=== PATIENT | female | born 2005 | race Caucasian/White ===

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

== ENCOUNTER 2023-12-05 10:57 | Outpatient (RCR) | payer OTHER, SELFPAY ==
[2023-12-04] MEDS: RHO(D) IMMUNE GLOBULIN 300 MCG/2 ML SYRINGE IM (14:44)
== END 2024-03-02 23:59 | disposition home or self-care (01) ==
LOC: ANHLAB 10:57
PROVIDERS: PCP Pediatrics; Visit Provider Obstetrics & Gynecology
DX: O20.0 Threatened abortion (principal)
CPT/HCPCS: 36415; 84702; 85461; 86850; 86900; 86901; 90384; 96372; J2790

== ENCOUNTER 2023-12-09 11:30 | Emergency (ER) | payer OTHER, SELFPAY ==
--- NOTE | ~2023-12-09 | US_ITS ---
EXAMINATION: US OB <=14 wk fetus w TV DATE: 12/09/2023 12:09 INDICATION: Vaginal bleeding TECHNIQUE: Real-time pelvic ultrasound utilizing both a transvaginal and transabdominal probe was pe rformed. The interpreting radiologist was not present for the study. COMPARISON: None. FINDINGS: The uterus measures 7.2 x 5.9 x 6.4 cm. There is an intrauterine gestational sac. A yolk sac and fet al pole are identified. The crown rump length measures 7 mm, which correlates with an estimated gesta tional age of 6 weeks and 4 days. heart motion is identified measuring 126 beats per minute (bp m) by M-mode Doppler. The right ovary measures 3.8 x 2.8 x 2.9 cm. The left ovary measures 3.4 x 1.8 x 1.9 cm. Vascular evy w seen in both ovaries on color Doppler. There is no free fluid in the pelvis. IMPRESSION: 1. Single living fetus with heart rate of 126 bpm. 2. Gestational age by ultrasound of 6 weeks 4 day(s) +/- 4 day(s) with ultrasound estimated date of delivery (VALERIY) of 07/30/2024. Reviewed, dictated and finalized at location A. IMPRESSION: 1. Single living fetus with heart rate of 126 bpm. 2. Gestational age by ultrasound of 6 weeks 4 day(s) +/- 4 day(s) with ultraso und estimated date of delivery (VALERIY) of 07/30/2024.
[2023-12-09] MEDS: SODIUM CHLORIDE 0.9% IV 1,000 ML 999 ML IV CONT (12:15)
[2023-12-09 12:16] VITALS: BP 107/58; PULSE 76; RESP 18; TEMP 36.8; O2SAT 100
[2023-12-09] MEDS: METOCLOPRAMIDE HCL INJ 10 MG/2 ML VIAL IV PUSH (12:16)
[2023-12-09 12:23] LABS: Basophils Absolute Auto 0.1 K/mm3 (0.0-0.1); Basophils Percent Auto 0.7 % (0.2-1.2); Eosinophils Absolute Auto 0.1 K/mm3 (0-0.3); Eosinophils Percent Auto 0.8 % (0-4.4); Hematocrit 40.4 % (37.0-47.0); Hemoglobin 13.4 g/dL (12.0-15.0); Immature Granulocyte Absolute 0.02 K/mm3 (0.00-0.031); Immature Granulocyte Percent A 0.3 % (0-0.5); Lymphocytes Absolute Auto 1.49 K/mm3 (0.9-3.2); Lymphocytes Percent Auto 19.9 % (18.3-44.2); Mean Corpuscular HGB Conc 33.2 g/dl (32-36); Mean Corpuscular Hemoglobin 28.5 pg (26-34); Mean Corpuscular Volume 85.8 fl (80-100); Mean Platelet Volume 10.7 fl (7.4-10.4); Monocytes Absolute Auto 0.6 K/mm3 (0.1-0.6); Monocytes Percent Auto 7.4 % (2.6-8.5); Neutrophils Absolute Auto 5.3 K/mm3 (1.3-6.7); Neutrophils Percent Auto 70.9 % (45.5-73.1); Platelet Count Result 298 k/mm3 (150-375); Red Blood Count 4.71 M/mm3 (4.2-5.4); Red Cell Distribution Width 12.7 % (11.5-14.5); White Blood Count 7.5 K/mm3 (4.5-10.0)
[2023-12-09 12:31] LABS: Alanine Aminotransferase 29 U/L (6-35); Albumin Level 4.6 g/dL (3.5-5.1); Alkaline Phosphatase 56 U/L (38-126); Anion Gap 12 mmol/L (4-12); Aspartate Amino Transferase 27 U/L (14-36); Bilirubin,Total 0.8 mg/dL (0.2-1.3); Blood Urea Nitrogen 8 mg/dL (7-17); Calcium 9.2 mg/dL (8.4-10.2); Carbon Dioxide 20 mmol/L (22-30); Chloride 103 mmol/L (98-107); Estimated CRCL calculation 119 ml/min; Estimated Glomerular Filt Rate > 60; Glucose 93 mg/dL (65-110); Potassium 3.6 mmol/L (3.4-5.0); Sodium 135 mmol/L (137-145)
[2023-12-09 12:34] LABS: Partial Thromboplastin Time 28.6 Seconds (22.3-36.8); Prothrombin Time 14.1 Seconds (11.1-14.7)
--- NOTE | 2023-12-09 12:45 | ED.GENADULT ---
HPI - General Adult General Chief complaint: Vaginal Bleeding Stated complaint: spotting, 6w4d Time Seen by Provider: 12/09/23 11:35 History of Present Illness HPI narrative: Patient 18-year-old female who presents emergency department with chief complaint urinary symptoms and spotting. The patient reports about 6 weeks and reports that she was recently treated for UTI the patient reports she finished her antibiotic and reports that she had some spotting and was still having some urinary frequency and urgency patient reports she has seen her OBGYN but decided to come to the emergency department today as she was not getting better and had a spotting. Related Data Home Medications Medication Instructions Recorded Confirmed No Home Medications 05/17/22 05/17/22 Allergies Allergy/AdvReac Type Severity Reaction Status Date / Time No Known Allergies Allergy Verified 12/09/23 11:33 Review of Systems Review of Systems: A 10 system review of systems was completed on the patient and is negative except for what is stated in the HPI. Nursing and ancillary documentation was reviewed. Exam Narrative: GENERAL: Well-appearing, well-nourished, and in no acute distress. HEAD: Normocephalic, atraumatic. EYES: PERRLA and EOMI. ENT: Nares clear, no rhinorrhea or epistaxis. Mucous membranes moist. NECK: Supple. CHEST: Clear to auscultation. No respiratory distress. HEART: Regular rate and rhythm. No murmur heard. Normal peripheral pulses. ABDOMEN: Soft, nontender, nondistended, normal active bowel sounds. EXTREMITIES: Normal range of motion. No edema. SKIN: Warm, dry, no rash. NEURO: No focal deficits. Alert and oriented x3. PSYCH: Normal mood and affect. Course Vital Signs Vital signs: Vital Signs Temperature 36.8 C 12/09/23 12:16 Pulse Rate 76 12/09/23 12:16 Respiratory Rate 18 12/09/23 12:16 Blood Pressure 107/58 L 12/09/23 12:16 Pulse Oximetry 100 12/09/23 12:16 Oxygen Delivery Room Air 12/09/23 12:16 Temperature 36.8 C 12/09/23 12:16 Pulse Rate 76 12/09/23 12:16 Respiratory Rate 18 12/09/23 12:16 Blood Pressure 107/58 L 12/09/23 12:16 Pulse Oximetry 100 12/09/23 12:16 Oxygen Delivery Room Air 12/09/23 12:16 Medical Decision Making MDM Narrative Medical decision making narrative: Differential diagnosis includes threatened miscarriage, UTI, dehydration, hyperemesis gravidarum Laboratory studies were obtained on the patient which showed a urinalysis with 3+ ketones otherwise no evidence UTI electrolytes are within normal limits quantitative hCG was 44,936 Blood type was A negative the patient has receive RhoGAM in the last 2 weeks Ultrasound showed 1. Single living fetus with heart rate of 126 bpm. 2. Gestational age by ultrasound of 6 weeks 4 day(s) +/- 4 day(s) with ultrasound estimated date of delivery (VALERIY) of 07/30/2024. Vital Signs Vital Signs: Vital Signs Temperature 36.8 C 12/09/23 12:16 Pulse Rate 76 12/09/23 12:16 Respiratory Rate 18 12/09/23 12:16 Blood Pressure 107/58 L 12/09/23 12:16 Pulse Oximetry 100 12/09/23 12:16 Oxygen Delivery Room Air 12/09/23 12:16 Temperature 36.8 C 12/09/23 12:16 Pulse Rate 76 12/09/23 12:16 Respiratory Rate 18 12/09/23 12:16 Blood Pressure 107/58 L 12/09/23 12:16 Pulse Oximetry 100 12/09/23 12:16 Oxygen Delivery Room Air 12/09/23 12:16 Lab Data 12/09/23 12:12 12/09/23 12:12 Labs: Lab Results 12/09/23 12/09/23 Range/Units 12:12 13:57 WBC 7.5 (4.5-10.0) K/mm3 RBC 4.71 (4.2-5.4) M/mm3 Hgb 13.4 (12.0-15.0) g/dL Hct 40.4 (37.0-47.0) % MCV 85.8 (80-100) fl MCH 28.5 (26-34) pg MCHC 33.2 (32-36) g/dl RDW 12.7 (11.5-14.5) % Plt Count 298 (150-375) k/mm3 MPV 10.7 H (7.4-10.4) fl Immature Gran % (Auto) 0.3 (0-0.5) % Neut % (Auto) 70.9 (45.5-73.1) % Lymph % (Au
[2023-12-09 14:06] LABS: Add Urine Microscopic? YES; Appearance Urine Cloudy (Clear); Bacteria Urine None Seen /hpf; Bilirubin Urine Negative (Negative); Blood Urine Negative (Negative); Color Urine Yellow (Yellow); Glucose Urine UA Negative (Negative); Ketones Urine 3+ mg/dL (Negative); Leukocyte Esterase Ur Negative LEU/UL (Negative); Nitrate Urine Negative (Negative); Non Pathogenic Casts 0-2; Protein Urine Negative (Negative); RBC Urine 0-2 /hpf (0-2); Specific Grav Ur 1.022 (1.001-1.035); Squamous Epithelial Cell Urine None Seen /hpf (Few); WBC Urine 0-5 /hpf (0-3); pH Urine 6.5 (5.0-9.0)
[2023-12-09 14:59] VITALS: BP 130/88; PULSE 80; RESP 14; O2SAT 98
== END 2023-12-09 14:59 | disposition home or self-care (01) ==
PROVIDERS: Emergency Provider Emergency Medicine; PCP Obstetrics & Gynecology
DX: O20.0 Threatened abortion (principal); O26.891 Other specified pregnancy related conditions, first trimester; R30.0 Dysuria; Z3A.01 Less than 8 weeks gestation of pregnancy
CPT/HCPCS: 36415; 76801; 76817; 80053; 81001; 84702; 85025; 85461; 85610; 85730; 86850; 86880; 86900; 86901; 86902; 96361; 96374; 99284; J2765; J7030

== ENCOUNTER 2024-01-20 20:01 | Emergency (ER) | payer OTHER, SELFPAY ==
[2024-01-20 20:10] VITALS: BP 147/93; PULSE 108; RESP 18; TEMP 36.6; O2SAT 100
[2024-01-20 22:53] VITALS: BP 129/76; PULSE 92; RESP 20; O2SAT 99
[2024-01-20 23:06] LABS: Basophils Absolute Auto 0.1 K/mm3 (0.0-0.1); Basophils Percent Auto 0.6 % (0.2-1.2); Eosinophils Absolute Auto 0.1 K/mm3 (0-0.3); Eosinophils Percent Auto 0.9 % (0-4.4); Hematocrit 38.3 % (37.0-47.0); Hemoglobin 12.7 g/dL (12.0-15.0); Immature Granulocyte Absolute 0.02 K/mm3 (0.00-0.031); Immature Granulocyte Percent A 0.2 % (0-0.5); Lymphocytes Absolute Auto 2.21 K/mm3 (0.9-3.2); Lymphocytes Percent Auto 21.4 % (18.3-44.2); Mean Corpuscular HGB Conc 33.2 g/dl (32-36); Mean Corpuscular Hemoglobin 28.7 pg (26-34); Mean Corpuscular Volume 86.7 fl (80-100); Mean Platelet Volume 10.5 fl (7.4-10.4); Monocytes Absolute Auto 0.7 K/mm3 (0.1-0.6); Monocytes Percent Auto 6.6 % (2.6-8.5); Neutrophils Absolute Auto 7.3 K/mm3 (1.3-6.7); Neutrophils Percent Auto 70.3 % (45.5-73.1); Platelet Count Result 266 k/mm3 (150-375); Red Blood Count 4.42 M/mm3 (4.2-5.4); Red Cell Distribution Width 12.5 % (11.5-14.5); White Blood Count 10.3 K/mm3 (4.5-10.0)
[2024-01-20 23:16] LABS: Add Urine Microscopic? YES; Appearance Urine Clear (Clear); Bacteria Urine None Seen /hpf; Bilirubin Urine Negative (Negative); Blood Urine 3+ (Negative); Color Urine Yellow (Yellow); Glucose Urine UA Negative (Negative); Ketones Urine Trace mg/dL (Negative); Leukocyte Esterase Ur Negative LEU/UL (Negative); Nitrate Urine Negative (Negative); Non Pathogenic Casts 0-2; Protein Urine Trace mg/dL (Negative); Specific Grav Ur 1.023 (1.001-1.035); Squamous Epithelial Cell Urine Few /hpf (Few); WBC Urine 0-5 /hpf (0-3); pH Urine 6.5 (5.0-9.0)
[2024-01-20 23:20] LABS: Anion Gap 10 mmol/L (4-12); Blood Urea Nitrogen 7 mg/dL (7-17); Calcium 9.2 mg/dL (8.4-10.2); Carbon Dioxide 23 mmol/L (22-30); Chloride 102 mmol/L (98-107); Estimated CRCL calculation 139 ml/min; Estimated Glomerular Filt Rate > 60; Glucose 132 mg/dL (65-110); Potassium 3.6 mmol/L (3.4-5.0); Sodium 135 mmol/L (137-145)
--- NOTE | 2024-01-20 23:21 | ED.PREGNANCY ---
HPI - General Chief complaint: Vaginal Bleeding Stated complaint: 12 weeks , vaginal bleeding Time Seen by Provider: 01/20/24 22:17 Source: patient Mode of arrival: ambulatory Limitations: no limitations History of Present Illness HPI Narrative: Patient is a 18-year-old female who presents the ED with report of vaginal bleeding. Patient is at approximately 12 weeks gestation. She sees Dr. Sherman with [facility]. Had US at 6 weeks which showed IUP. Has appointment tomorrow for 12 week scan. States over the last few days she has had light pink vaginal spotting. Today bleeding became more bright red in color. She also reported having lower abdominal and lower back cramping in prompted here for further evaluation. Patient has not taken anything for pain today. Denies dysuria or hematuria. Denies fevers, nausea, vomiting. Related Data Home Medications Medication Instructions Recorded Confirmed No Home Medications 05/17/22 05/17/22 Allergies Allergy/AdvReac Type Severity Reaction Status Date / Time No Known Allergies Allergy Verified 01/20/24 22:57 Review of Systems Review of Systems: All systems reviewed & are unremarkable except as noted in HPI. All systems reviewed & are unremarkable except as noted in HPI and below Exam Narrative: GENERAL: Well appearing, obese with BMI of 31.4, non-toxic, in no acute distress. HEAD: Normocephalic, atraumatic. RESPIRATORY: Airway patent, respirations nonlabored. Clear to auscultation bilaterally, no rales, rhonchi, wheezing. CARDIOVASCULAR: Regular rate and rhythm without murmurs, rubs, or gallops. ABDOMINAL: Soft, mild tenderness throughout lower abdomen, no rebound. Nondistended. Normoactive BS. MUSCULOSKELETAL: Moves all extremities. No gross deformities. SKIN: Warm, dry, normal color. NEURO: A&O X3. Speech clear. PSYCHIATRIC: Appropriate mood and affect. Normal interaction. Course Vital Signs Vital signs: Vital Signs Temperature 98 F 01/20/24 20:10 Pulse Rate 108 H 01/20/24 20:10 Respiratory Rate 18 01/20/24 20:10 Blood Pressure 147/93 H 01/20/24 20:10 Pulse Oximetry 100 01/20/24 20:10 Oxygen Delivery Room Air 01/20/24 20:10 Temperature 98 F 01/20/24 20:10 Pulse Rate 92 01/20/24 22:53 Respiratory Rate 20 01/20/24 22:53 Blood Pressure 129/76 01/20/24 22:53 Pulse Oximetry 99 01/20/24 22:53 Oxygen Delivery Room Air 01/20/24 22:53 MDM - OB/Uterine Contractions MDM Narrative Medical decision making narrative: Patient presented to ED with intermittent vaginal bleeding, approximately 12 weeks gestation, confirmed IUP, also reporting lower abdominal and lower back pain/cramping. Vital signs are stable upon arrival. Patient is in no acute distress. No evidence of hemodynamic instability. Cbc with white blood cell count of 10.3. Stable H&H. CMP on remarkable. UA with small amount of blood, no signs of infection. Beta hCG today 984. Per records, beta hCG last month was up to nearly 45,000. This, in combination with ongoing/worsening vaginal bleeding is suspicious for spontaneous miscarriage. I discussed these laboratory findings with patient and my concern for miscarriage. All questions were answered. Patient understandably very upset at this time. Wanting to go home. Declined pelvic exam. She does have a follow-up appointment tomorrow with her OBGYN in office. I discussed case with Dr. Bustamante, OBGYN on-call for [facility], no further recommendations at this time, follow-up in office. Patient is A negative blood type. Given RhoGAM here. Patient was advised to continue monitoring bleeding, follow closely at her appointment, given return precautions. Ambulatory with a steady gait out of the ED. Refused discharge vital signs. Medical Records Attestation: I reviewed the patient's medical records. Lab Data Attestation: I reviewed the patient's lab results. 01/20/24 23:00 01/20/24 23:00
[2024-01-20 23:37] LABS: Beta HCG Quantitative 984.57 mIU/ML
[2024-01-21] MEDS: RHO(D) IMMUNE GLOBULIN 300 MCG/2 ML SYRINGE IM (01:23)
--- NOTE | 2024-01-21 01:28 | PC.NURSE ---
Pt refused VS for Rhogam administration. Patient refused repeat VS. In TAR, was asked about peripheral or central line admin, was a hard stop in TAR, med was given IM, NOT peripheral or centrally. Patient tolerated IM shot well.
== END 2024-01-21 01:32 | disposition home or self-care (01) ==
PROVIDERS: Emergency Provider Physician Assistant; PCP Obstetrics & Gynecology
DX: O03.9 Complete or unspecified spontaneous abortion without complication (principal); Z3A.12 12 weeks gestation of pregnancy
CPT/HCPCS: 36415; 80048; 81001; 84702; 85025; 85461; 86850; 86880; 86900; 86901; 90384; 96372; 99283; J2790

== ENCOUNTER 2024-04-29 11:56 | Outpatient (RCR) | payer OTHER, SELFPAY ==
[2024-04-29] MEDS: RHO(D) IMMUNE GLOBULIN 300 MCG/2 ML SYRINGE IM (15:00)
== END 2024-07-28 23:59 | disposition home or self-care (01) ==
LOC: ANHLAB 11:56
PROVIDERS: PCP Obstetrics & Gynecology; Visit Provider Obstetrics & Gynecology
DX: Z29.13 Encounter for prophylactic Rho(D) immune globulin (principal); O36.0130 Maternal care for anti-D [Rh] antibodies, third trimester, not applicable or unspecified; Z3A.00 Weeks of gestation of pregnancy not specified
CPT/HCPCS: 36415; 84702; 85461; 86850; 86880; 86900; 86901; 86902; 90384; 96372; J2790

== ENCOUNTER 2024-05-01 12:57 | Outpatient (RCR) | payer OTHER, SELFPAY | END 2024-07-30 23:59 | disposition home or self-care (01) | LOC: ANHLAB 12:57 | PROVIDERS: PCP Obstetrics & Gynecology; Visit Provider Obstetrics & Gynecology | DX: O20.0 Threatened abortion (principal); Z3A.00 Weeks of gestation of pregnancy not specified | CPT/HCPCS: 36415; 84702 ==

== ENCOUNTER 2024-09-03 22:40 | Observation (INO) | payer OTHER, SELFPAY ==
--- NOTE | ~2024-09-03 | US_ITS ---
Limited Abdominal Sonogram: Real-time sonographic imaging of the right upper quadrant was performed. Clinical History: Right upper quadrant pain Findings: The liver appears normal with no evidence of mass lesion or bile duct dilatation. Main por rodrigo vein demonstrates normal direction of flow. The gallbladder is well distended, and contains echog enic debris and possible small stones versus polyps. The common bile duct measures 6 mm. The visuali zed pancreas, aorta, and IVC are unremarkable. Impression: Gallbladder sludge with small stones and/or polyps. Reviewed, dictated and finalized at location M. Impression: Gallbladder sludge with small stones and/or polyps.
--- OUTSIDE RECORDS SUMMARY | 2024-09-03 22:42 | XMS_ITS | Clinical Summary ---
Author Organization [facility] Address [address] [place] [address] Care Team Providers Care Spin Tank Tender Name Role Phone Unavailable Primary Care Provider Unavailabl e Source Comments [facility],non-owned Affiliates and Associated Physician Practices is amultiple site organization consisting of ambulatory clinics and hospital sitesin [place], [place], [place] and [place]. This disclosure is being madepursuant to the Care Everywhere program and may not contain all information available regarding this patient. Last updated 18.[facility] Keegy Allergies No known active allergies Medications * This document contains information received from the source organization and may not represent a complete record from that organization. * Be aware that medications may not be up to date on this document. Alwaysverify current medications with the patient. No known medications Active Problems Problem Noted Date Diagnosed Date Extensor tenosynovitis of left wrist 11/26/2018 Left wrist pain 11/26/2018 Ganglion 04/18/2018 Hx MRSA infection 06/08/2017 Closed avulsion fracture of shaft of metacarpal bone 06/08/2017 Injury of foot, left 10/04/2015 Family History Medical History Relation Name Comments None Known Brother None Known Father None Known Maternal Aunt None Known Maternal Grandfather None Known Maternal Grandmother None Known Maternal Uncle None Known Mother None Known Other None Known Paternal Aunt None Known Paternal Grandfather None Known Paternal Grandmother None Known Paternal Uncle None Known Sister Asthma Neg Hx CVA Neg Hx Cancer - Breast Neg Hx Cancer - Other Neg Hx Cancer - Skin, Melanoma Neg Hx Cancer - Skin, Non Melanoma Neg Hx Eczema Neg Hx Hemophilia Neg Hx Psoriasis Neg Hx Relation Name Status Comments Brother Father Maternal Aunt Maternal Grandfather Maternal Grandmother Maternal Uncle Mother Other Paternal Aunt Paternal Grandfather Paternal Grandmother Paternal Uncle Sister Social History Tobacco Use Types Packs/Day Years Used Date Smoking Tobacco: Passive Smo ke Exposure - Never Smoker Smokeless Tobacco: Never Comments No Sex and Gender Information Value Date Recorded Sex Assigned at Not on file Legal Sex Female 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 Gender Identity Not on file Sexual Orientation Not on file Last Filed Vital Signs Vital Sign Reading Time Taken Comments Blood Pressure 110/76 02/18/2019 2:27 PM CDT Pulse 81 02/18/2019 2:27 PM CDT Temperature 36.7 C (98.1 F) 02/18/2019 2:27 PM CDT Respiratory Rate - - Oxygen Saturation 97% 02/18/2019 2:27 PM CDT Inhaled Oxygen Concentration - - Weight 67.8 kg (149 lb 6.4 oz) 02/18/2019 2:27 P M CDT Height 160 cm (5' 3) 11/22/2018 8:22 AM CDT Body Mass Index - - Plan of Treatment Health Maintenance Due Date Last Done Comments HIV SCREENING 11/06/2018 HPV VACCINE (1 - 3-dose series) 11/06/2018 CHLAMYDIA/GONORRHEA SCREENING 2019 MENINGOCOCCAL (Group B) VACC INE SHARED DECISION-MAKING (1 of 2 - Standard) 2019 HEPATITIS C SCREENING 11/02/2021 DTAP/TDAP/TD VACCINES (1 - Tdap) 11/06/2022 HEPATITIS B VACCINE (1 of 3 - 19+ 3-dose series) 11/06/2022 COVID-19 VACCINE (1 - 2023-2 5 season) 2023 DEPRESSION SCREENING 04/23/2024 INFLUENZA VACCINE (Season Ended) 2024 ZOSTER VACCINE (1 of 2) 11/06/2053 HIB VACCINE Aged Out No longer eligi ble based on patient's age to complete this topic MENINGOCOCCAL GROUPS A/C/Y/W VACCINE Aged Out No longer eligible b ased on patient's age to complete this topic PNEUMOCOCCAL VACCINE Aged Out No long er eligible based on patient's age to complete this topic Insurance [facility] [place] [address]
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
--- OUTSIDE RECORDS SUMMARY | 2024-09-03 22:42 | XMS_ITS | Clinical Summary ---
Author Organization [facility] Address [address] [facility] [place] [address] Phone Care Team Providers Care Lieutenant Governor Name Role Phone Otoniel Noonan MD Primary Care Provider [phone] Harpreet Burch DPM Unavailable [phone] Allergies No known active allergies Medications lamoTRIgine (LAMICTAL) 25 MG Tablet Take by mouth. Active Active Problems Problem Noted Date Diagnosed Date Paronychia of great toe of right foot 11/09/2016 Paronychia of great toe, left 11/09/2016 Pain of right great toe 11/09/2016 Pain of left great toe 11/09/2016 Resolved Problems Problem Noted Date Diagnosed Date Resolved Date Pain in limb 11/09/2016 Paronychia of toe 11/09/2016 Overview (11/02/2014): R Hallux Lateral Border Family History Medical History Relation Name Comments No Known Problems Father No Known Problems Mother Diabetes Paternal Grandfather Diabetes Paternal Grandmother Relation Name Status Comments Father Alive Mother Alive Paternal Grandfather Paternal Grandmother Social History Tobacco Use Types Packs/Day Years Used Date Smoking Tobacco: Never Tobacco Cessation:Counseling Given: Yes Alcohol Use Standard Drinks/Week Comments No 0 (1 standard drink = 0.6 oz pur e alcohol) Sexually Active Control Partners Comments Never Comments No Sex and Gender Information Value Date Recorded Sex Assigned at Not on file Legal Sex Female 7:52 PM CDT Gender Identity Not on file Sexual Orientation Not on file Last Filed Vital Signs Vital Sign Reading Time Taken Comments Blood Pressure 110/68 10/25/2016 4:00 PM CDT Pulse 82 11/09/2016 10:20 AM CDT Temperature 36.1 C (97 F) 11/09/2016 10:20 AM CDT Respiratory Rate 17 11/09/2016 10:20 AM CDT Oxygen Saturation 98% 11/09/2016 10:20 AM CDT Inhaled Oxygen Concentration - - Weight 63.5 kg (140 lb) 11/09/2016 10:20 AM CDT Height 156.2 cm (5' 1.5) 11/09/2016 10:20 AM CD T Body Mass Index 26.02 11/09/2016 10:20 AM CDT Plan of Treatment Health Maintenance Due Date Last Done Comments Hepatitis C Virus (HCV) Screening 2003 TdaP Immunization 2003 Human Papillomavirus (HPV) Immunization (1 - 3-dose series) 11/06/2018 Meningococcal B Immunization (1 of 2 - Standard) 2019 Hepatitis B Immunization (1 of 3 - 19+ 3-dose series) 11/06/2022 Influenza Immunization (#1) 2023 SARS-COV-2 Immunization (1 - 2023- season) 2023 Respiratory Syncytial Virus (RSV) Immunization (Adult) (1 - 1-dose 75+ series) 11/06/2078 Meningococcal Immunization (ACWY) Aged Out No longer eligible based on patient's age to complete this topic Pneumococcal Immunization Combined Aged Out No longer eligible based on patient's age to complete this topic Rotavirus Immunization Aged Out No lo nger eligible based on patient's age to complete this topic Insurance MEDICAID [facility] [employer] MEDICAID [facility] Care Teams Lieutenant Governor Relationship Specialty Start Date End Date Otoniel Noonan MD [address] [place] [address] PCP - General Pediatrics 10/19/16 Harpreet Burch DPM [address] [place] [address] Consulting Physician Podiatry 10/19/16
--- OUTSIDE RECORDS SUMMARY | 2024-09-03 22:42 | XMS_ITS | Data Portability ---
Author Organization [facility] [place] Address [address] [place] [address] [place] [address] Assessment Encounter Date Assessment Date Assessment LastModified by Organization Details LastModified Time 08/12/2024 08/12/2024 Patient is __20 _weeks . Discussed plan. Not available 08/12/2024 12:30:38 Plan of Treatment Reminders Order Date Submit Date Provider Last Modified By Organization Details Last Modified Time Details Appointments OB ROUTINE 2024 11:45A M Tonja Mayer CNM Not available Not available Not available Lab drug screen, urine 2024 025 [email or web address] [place], [address], [place], [address], 06/18/2024 15:06:31 Referral None recorded. Procedures None recorded. Surgeries None recorded. Imaging US, obstetric , 2nd or 3rd trimester 2024 025 [email or web address] [place], [address], [place], [address], 08/12/2024 22:17:18 US, obstetric , nuchal transluce ncy 2024 025 [email or web address] [place], [address], [place], [address], 06/11/2024 19:11:46 Medication Orders None recorded. Patient TargetsNo targets recorded. Patient InstructionsNo instructions recorded. Reason for Referral None Reported. Results Created Date Observation Date Name Description Value Unit Range Abnormal Flag Note LastModifiedBy Organization Detail LastModifiedTime 06/07/19 25 06/07/2024 [UNIT Y] ANEUP LOIDY NIPT fraction 6.8% normal Not Available [facility] [address] [facility], [place], [address], 06/07/2024 02:12:36 06/07/19 25 06/07/2024 [UNIT Y] ANEUP LOIDY NIPT 22Q11.2 microdeletio n LOW RISK <1 in 10,000 normal Not Available [facility] [address], [place], [address], 06/07/2024 02:12:36 06/07/19 25 06/07/2024 [UNIT Y] ANEUP LOIDY NIPT sex chromosome aneuploidy NOT DETECT ED normal Not Available [facility] [address] [facility], [place], [address], 06/07/2024 02:12:36 06/07/19 25 06/07/2024 [UNIT Y] ANEUP LOIDY NIPT monosomy X LOW RISK <1 in 10,000 normal Not Available [facility] [address], [place], [address], 06/07/2024 02:12:36 06/07/19 25 06/07/2024 [UNIT Y] ANEUP LOIDY NIPT trisomy 13 LOW RISK <1 in 10,000 normal Not Available [facility] [address] [facility] [address] , [place], [address], 06/07/2024 02:12:36 06/07/19 25 06/07/2024 [UNIT Y] ANEUP LOIDY NIPT trisomy 18 LOW RISK <1 in 10,000 normal Not Available [facility] [address] [facility], [place], [address], 06/07/2024 02:12:36 06/07/19 25 06/07/2024 [UNIT Y] ANEUP LOIDY NIPT trisomy 21 LOW RISK <1 in 10,000 normal Not Available [facility] [address] [facility], [place], [address], 06/07/2024 02:12:36 06/07/19 25 06/07/2024 [UNIT Y] ANEUP LOIDY NIPT sex MALE normal Not Available [facility] [address], [place], [address], 06/07/2024 02:12:36 06/07/19 25 06/07/2024 [UNIT Y] ANEUP LOIDY NIPT gestation SINGLE TON normal Not Available [facility] [address] [facility], [place], [address], 06/07/2024 02:12:36 06/07/19 25 06/07/2024 [UNIT Y] ANEUP LOIDY NIPT for detailed report, see pdf See PDF normal Not Available [facility] [address] [facility], [place], [address], 06/07/2024 02:12:36 05/21/19 25 05/21/2024 CT/GC AND TRICH OMONA S VAGIN VERONICA (RRNA ), URINE chlamydia trachomatis, PCR Negati ve negati ve Not Available [facility] (Lab) [address], [place], [address], 05/22/2024 16:21:51 05/21/19 25 05/21/2024 CT/GC AND TRICH OMONA S VAGIN VERONICA (RRNA ), URINE neisseria gonorrhoeae, PCR Negati ve negati ve Not Available [facility] (Lab) [address], [place], [address], 05/22/2024 16:21:51 05/21/19 25 05/21/2024 CT/GC AND TRICH OMONA S VAGIN VERONICA (RRNA ), URINE trichomonas vaginalis ribosomal RNA (rrna) Negati ve negati ve Not Available [facility] (Lab) [address], [place], [address], 05/22/2024 16:21:51 06/02/1906/02/2024 CBC W/DIF F WBC 7.3 10'3/ uL 3.5-[address] [facility] (Lab) [address], [place], [address], 06/03/2024 14:31:17 06/02/19 25 06/02/2024 CBC W/DIF F RBC 4.81 10'6/ uL (based on docume nted legal sex) 3.80-[address] [facility] (Lab) [address], [place], [address], 06/03/2024 14:31:17 06/02/19 25 06/02/2024 CBC W/DIF F HGB 12.1 g/dL (based on docume nted legal sex) 11.6-[address] [facility] (Lab) [address], [place], [address], 06/03/2024 14:31:17 06/02/19 25 06/02/2024 CBC W/DIF F HCT 38.4 % (based on docume nted legal sex) 34.0-[address] [facility] (Lab) [address], [place], [address], 06/03/2024 14:31:17 06/02/19 25 06/02/2024 CBC W/DIF F MCV 79.8 fL 80.0-9 9[address] [facility] (Lab) [address], [place], [address], 06/03/2024 14:31:17 06/02/19 25 06/02/2024 CBC W/DIF F MCH 25.2 pg 27.0-3 4[address] [facility] (Lab) [address], [place], [address], 06/03/2024 14:31:17 06/02/19 25 06/02/2024 CBC W/DIF F MCHC 31.5 g/dL 32.0-3 5.[address] [facility] (Lab) [address], [place], [address], 06/03/2024 14:31:17 06/02/19 25 06/02/2024 CBC W/DIF F RDW 15.3 % 11.0-1 [address] [facility] (Lab) [address], [place], [address], 06/03/2024 14:31:17 06/02/19 25 06/02/2024 CBC W/DIF F plt 309 10'3/ uL 150-[address] [facility] (Lab) [address], [place], [address], 06/03/2024 14:31:17 06/02/19 25 06/02/2024 CBC W/DIF F MPV 11.9 fL 8.8-[address] [facility] (Lab) [address], [place], [address], 06/03/2024 14:31:17 06/02/19 25 06/02/2024 CBC W/DIF F neutrophils 73.7 % 34.0-7 3.0 high Not Available [facility] (Lab) [address], [place], [address], 06/03/2024 14:31:17 06/02/19 25 06/02/2024 CBC W/DIF F lymphocytes 17.0 % 15.0-[address] [facility] (Lab) [address], [place], [address], 06/03/2024 14:31:17 06/02/19 25 06/02/2024 CBC W/DIF F monocytes 6.8 % 1.0-[address] [facility] (Lab) [address], [place], [address], 06/03/2024 14:31:17 06/02/19 25 06/02/2024 CBC W/DIF F eosinophils 1.5 % 0.0-8. [address] [facility] (Lab) [address], [place], [address], 06/03/2024 14:31:17 06/02/19 25 06/02/2024 CBC W/DIF F basophils 0.7 % 0.0-2. [address] [facility] (Lab) [address], [place], [address], 06/03/2024 14:31:17 06/02/19 25 06/02/2024 CBC W/DIF F immature granulocytes 0.3 % no define d refere nce range Immat ure Granu locyt es (IG) repre sents autom ated enume ratio n of Metam yeloc ytes, Myelo cytes and Promy elocy prerna when IG is < 5%. Blast s are not inclu ded in IG and repor kristie separ ately if prese nt. Not Available [facility] (Lab) [address], [place], [address], 06/03/2024 14:31:17 06/02/19 25 06/02/2024 CBC W/DIF F absolute neutrophils 5.4 10'3/ uL 1.5-8. [address] [facility] (Lab) [address], [place], [address], 06/03/2024 14:31:17 06/02/19 25 06/02/2024 CBC W/DIF F absolute lymphocytes 1.2 10'3/ uL 1.0-4. [address] [facility] (Lab) [address], [place], [address], 06/03/2024 14:31:17 06/02/19 25 06/02/2024 CBC W/DIF F absolute monocytes 0.5 10'3/ uL 0.2-1. [address] [facility] (Lab) [address], [place], [address], 06/03/2024 14:31:17 06/02/19 25 06/02/2024 CBC W/DIF F absolute eosinophils 0.1 10'3/ uL 0.0-0. [address] [facility] (Lab) [address], [place], [address], 06/03/2024 14:31:17 06/02/19 25 06/02/2024 CBC W/DIF F absolute basophils 0.1 10'3/ uL 0.0-0. [address] [facility] (Lab) [address], [place], [address], 06/03/2024 14:31:17 06/02/19 25 06/02/2024 CBC W/DIF F absolute immature granulocytes 0.0 10'3/ uL 0.00-0 .10 Refer ence range s for nonbi nary/ inter sex or unspe cifie d gende r patie nts have not been estab lishe d. Pleas e refer to the follo wing table for range s estab lishe d for cisge nder patie nts and evalu ate in the clini arjun esther xt of the indiv idual patie nt: https ://kole ortiz book. nm.or g/Gen derX Not Available [facility] (Lab) [address] , [place], [address], 06/03/2024 14:31:17 06/02/19 25 06/02/2024 HEMOG LOBIN A1C hemoglobin A1C 5.3 % 4.0-5. 6 The Ameri can Diabe prerna Assoc iatio n recom mends that a prima ry goal of thera py kathya d be a HBA1C of < 7% and that physi cians shoul d reeva luate the treat ment regim en in patie nts with HBA1C value s consi stent ly > 8%. <5.7% Radha l 5.7 - 6.4% Incre ased risk for diabe prerna >=6.5 % Diagn ostic of diabe prerna <7.0% Goal of thera py >8.0% Actio n sugge sted Not Available [facility] (Lab) [address], [place], [address], 06/03/2024 14:31:18 06/02/19 25 06/02/2024 HEPAT ITIS B SURFA CE ANTIG EN hepatitis B surface antigen Non-re active non-re active This assay was perfo rmed using [employer] ratio n reage nts and test kits. Value s obtai renard with other assay metho ds or kits canno t be used inter madera eably . Not Available [facility] (Lab) [address], [place], [address], 06/03/2024 14:31:19 06/02/1906/02/2024 HIV 1/2 ANTIG EN/AN TIBOD Y, REFLE X CONFI RMATI ON HIV antigen/anti body Nonrea ctive nonrea ctive HIV-1 antig en and HIV-1 /HIV- 2 antib odies were not detec kristie. No labor atory evide nce of HIV infec tion. Not Available [facility] (Lab) [address], [place], [address], 06/03/2024 14:31:19 06/02/19 25 06/02/2024 HEPAT ITIS C ANTIB JOLEEN SCREE N, REFLE X TO CONFI RMATI ON hepatitis C antibody Non-re active non-re active Antib odies to HCV Not Detec kristie, does not exclu de the possi bilit y of expos ure to HCV. Not Available [facility] (Lab) [address], [place], [address], 06/03/2024 14:31:20 06/02/19 25 06/02/2024 RUBEL LA IGG ANTIB JOLEEN, QUANT rubella antibodies, IgG Reacti ve reacti ve Not Available [facility] (Lab) [address], [place], [address], 06/03/2024 14:31:21 06/02/19 25 06/02/2024 RUBEL LA IGG ANTIB JOLEEN, QUANT rubella antibodies, IgG quant 83.5 IU/mL >=10 Non-r eacti ve (Non- Immun e) <10 IU/mL React jessica (Immu ne) > or = 10 IU/mL Not Available [facility] (Lab) [address], [place], [address], 06/03/2024 14:31:21 06/02/19 25 06/02/2024 TYPE/ RH/SC REEN ABO/Rh type A NEG Not Available [facility] (Lab) [address], [place], [address], 06/03/2024 14:31:21 06/02/19 25 06/02/2024 TYPE/ RH/SC REEN antibody screen POS abnormal Not Available [facility] (Lab) [address], [place], [address], 06/03/2024 14:31:21 06/02/19 25 06/02/2024 TYPE/ RH/SC REEN exp date 2024 23:[address] [facility] (Lab) [address], [place], [address], 06/03/2024 14:31:21 06/02/19 25 06/02/2024 COOMB S, DIREC T ANTIG LOBUL IN direct antiglobulin test - polyspecific NEG Not Available [facility] (Lab) [address] [place], [address], 06/03/2024 14:31:22 06/02/19 25 06/02/2024 ANTIB JOLEEN IDENT IFICA TION antibody id POS, Anti-D due to RhIg An anti- D has been ident ified that is likel y passi vely acqui red (RhIg ) and not the resul t of activ e immun izati on. A titer will not be perfo rmed. Rhoga m injec tion recei berenice on 04/[address] [facility] (Lab) [address], [place], [address], 06/03/2024 14:31:22 06/02/19 25 06/02/2024 RPR SCREE N, REFLE X TITER /CONF IRMAT ION RPR screen Nonrea ctive nonrea ctive Not Available [facility] (Lab) [address], [place], [address], 06/03/2024 14:31:23 06/18/19 25 06/18/2024 CULTU RE: URINE result report SEE RESULT S BELOW Test: Cultu re: Urine Speci men Sourc e: Urine - Clean Catch Speci men Type: Urine Speci men Date: 2024 1502 Resul t Date: 2024 0702 Resul t Statu s: Final resul t Abnor mal: No Resul ting Lab: [facility] [address] [facility] [address] Tel: CULTU RE ----- ----- ----- --- Cultu re resul t (>=3 organ isms prese nt) indic ates possi ble conta minat ion. Repea t cultu re if sympt oms indic ate. Not Available [facility] (Lab) [address] , [place], [address], 06/20/2024 08:08:05 06/18/19 25 06/18/2024 drug scree n, urine Amphetamines : negati ve Not Available [place] [address], [place], [address], 06/18/2024 15:05:47 06/18/19 25 06/18/2024 drug scree n, urine Cannabinoids : positi ve Not Available [place] [address], [place], [address], 06/18/2024 15:05:47 06/18/19 25 06/18/2024 drug scree n, urine Cocaine: negati ve Not Available [place] [address], [place], [address], 06/18/2024 15:05:47 06/18/19 25 06/18/2024 drug scree n, urine Opiates: negati ve Not Available [place] [address], [place], [address], 06/18/2024 15:05:47 06/18/19 25 06/18/2024 drug scree n, urine Phenocyclidi ne: negati ve Not Available [place] [address], [place], [address], 06/18/2024 15:05:47 06/18/19 25 06/18/2024 drug scree n, urine Barbiturates : negati ve Not Available [place] [address], [place], [address], 06/18/2024 15:05:47 06/18/19 25 06/18/2024 drug scree n, urine Benzodiazepi francisco javier: negati ve Not Available [place] [address], [place], [address], 06/18/2024 15:05:47 06/18/19 25 06/18/2024 drug scree n, urine Ethanol: negati ve Not Available [place] [address], [place], [address], 06/18/2024 15:05:47 06/18/19 25 06/18/2024 drug scree n, urine Hallucinogen s: negati ve Not Available [place] [address], [place], [address], 06/18/2024 15:05:47 06/18/19 25 06/18/2024 drug scree n, urine Inhalants: negati ve Not Available [place] [address], [place], [address], 06/18/2024 15:05:47 06/18/19 25 06/18/2024 drug scree n, urine Anabolic Steroids: negati ve Not Available [place] [address], [place], [address], 06/18/2024 15:05:47 05/20/19 25 05/20/2024 US, obste tric, 1st trime ster No observ ation record ed. [email or web address] [address], [place], [address], 05/21/2024 23:13:09 06/11/19 25 06/11/2024 US, obste tric, nucha l trans lucen cy No observ ation record ed. [email or web address] [place] [address], [place], [address], 06/11/2024 18:20:29 06/11/19 25 06/11/2024 US, obste tric, nucha l trans lucen cy No observ ation record ed. [email or web address] [address], [place], [address], 06/11/2024 20:44:02 08/13/19 25 08/12/2024 US, obste tric, 2nd or 3rd trime ster No observ ation record ed. [email or web address] [place] [address], [place], [address], 08/12/2024 14:44:06 08/13/19 25 08/12/2024 US, obste tric, 2nd or 3rd trime ster No observ ation record ed. [email or web address] [address], [place], [address], 08/14/2024 11:02:10 Result Notes None recorded. Problems Name Problem SNOMED Code Status Onset Date Resolution Date Notes Provider Name and Address Organization Details Recorded Time 34378876 Active 2024 Urmila spaulding [place] [facility] 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 22:55:48 Problem Notes None recorded. Procedures Surgical History Date Name Laterality Status Provider Name and Address Organization Details Recorded Time 4 extraction of wisdom tooth completed Bhavya Pal [facility] 08/17/2024 10:09:10 9 tonsilectomy/a denoids completed Sophie Abrams [facility] 11/28/2023 14:06:37 Imaging Results Imaging Date Name Status LastModified by Organization Details LastModified Time 05/20/2024 US, obstetric, 1st trimester completed [email or web address] [address], [place], [address], 05/21/2024 23:13:09 06/11/2024 US, obstetric, nuchal translucency completed [email or web address] [place] [address], [place], [address], 06/11/2024 18:20:29 06/11/2024 US, obstetric, nuchal translucency completed [email or web address] [address], [place], [address], 06/11/2024 20:44:02 08/12/2024 US, obstetric, 2nd or 3rd trimester completed [email or web address] [place] [address], [place], [address], 08/12/2024 14:44:06 08/12/2024 US, obstetric, 2nd or 3rd trimester completed [email or web address] [address], [place], [address], 08/14/2024 11:02:10 Procedure Notes None recorded. Medical Equipment None Reported. Allergies No known drug allergies Medications Name Sig Start Date Stop Date Status Note LastModified by Organization Details LastModified Time amoxicillin 500 mg capsule TAKE 1 CAPSULE BY MOUTH EVERY 8 HOURS TILL GONE 11/27 completed Not Available Not Available Not Available ibuprofen 800 mg tablet TAKE 1 TABLET BY MOUTH EVERY 8 HOURS NEEDED FOR TOOTH PAIN 11/27 completed Not Available Not Available Not Available fluconazole 150 mg tablet TAKE 1 TABLET BY MOUTH FOR 1 DOSE 05/21 completed Not Available Not Available Not Available hydrocodone 5 mg-acetamino phen 325 mg tablet TAKE 1 TABLET BY MOUTH EVERY 6 HOURS NEEDED FOR PAIN. 11/27 completed Not Available Not Available Not Available ondansetron HCl 4 mg tablet 12/20 completed Not Available Not Available Not Available metronidazol e 500 mg tablet TAKE 1 TABLET BY MOUTH TWICE A DAY FOR 7 DAYS 01/21 completed Not Available Not Available Not Available acetaminophe n 300 mg-codeine 30 mg tablet TAKE 1 TABLET BY MOUTH EVERY 8 HOURS NEEDED FOR PAIN 11/27 completed Not Available Not Available Not Available ondansetron 8 mg disintegrati ng tablet 05/21 completed Not Available Not Available Not Available cephalexin 500 mg capsule 12/20 completed Not Available Not Available Not Available active Not Available Not Avai lable Not Available Vitals Date Recorded Body height Body mass index (BMI) [Percentile] Per age and sex Body mass index (BMI) Body weight Systolic blood pressure Diastolic blood pressure Provider Name and Address Organization Details Last Updated DateTime 5 154.94 cm 94 % 31.6 kg/m2 46627.9 3 g 144 mm[Hg] 68 mm[Hg] Urmila Madsen [facility] 5 11:44:18 Date Recorded Body height Body mass index (BMI) Body mass index (BMI) [Percentile] Per age and sex Body weight Systolic blood pressure Diastolic blood pressure Provider Name and Address Organization Details Last Updated DateTime 5 154.94 cm 31.4 kg/m2 94 % 30203.3 3 g 130 mm[Hg] 78 mm[Hg] ROMAINE Baires [facility] 5 10:21:59 Date Recorded Body weight Body mass index (BMI) [Percentile] Per age and sex Body mass index (BMI) Body height Systolic blood pressure Diastolic blood pressure Provider Name and Address Organization Details Last Updated DateTime 5 47569.5 1816 g 94 % 31.7 kg/m2 154.94 cm 125 mm[Hg] 83 mm[Hg] Bhavya Pal [facility] 12:22:12 Social History Question Answer Notes LastModified by Organizat ion Details LastModified Time Tobacco Smoking Status Former Smoker Bhavya Kae null, [facility] 08/17/2024 10:08:39 If You Are , What Was Your Level Of Alcohol Consumption Prior To ? None Information not available 08/17/2024 Are You Blind Or Do You Have Difficulty Seeing? No Information not available 11/28/2023 What Is Your Level Of Caffeine Consumption? Occasional Information not available 11/28/2023 In The 14 Days Before Symptom Onset, Have You Had Close Contact With A Laboratory-confir med COVID-19 While That Case Was Ill? No Information not available 11/28/2023 In The 14 Days Before Symptom Onset, Have You Had Close Contact With A Person Who Is Under Investigation For COVID-19 While That Person Was Ill? No Information not available 11/28/2023 Have You Been To An Area Known To Be High Risk For COVID-19? No Information not available 11/28/2023 Are You Deaf Or Do You Have Serious Difficulty Hearing? No Information not available 11/28/2023 What Type Of Diet Are You Following? REGULAR Information not available 11/28/2023 What Is The Highest Grade Or Level Of School You Have Completed Or The Highest Degree You Have Received? [id number] Information not available 11/28/2023 Are There Any Guns Present In Your Home? No Information not available 11/28/2023 Do You Use Protection During Sex? No Information not available 11/28/2023 Do You Use Your Seat Belt Or Car Seat Routinely? Yes Information not available 11/28/2023 Are You Sexually Active? Yes [email or web address] Information not available 05/21/2024 Do You Have Smoke And Carbon Monoxide Detectors In Your Home? No Information not available 11/28/2023 How Much Tobacco Do You Smoke? No Information not available 11/28/2023 Do You Use Sunscreen Routinely? Yes Information not available 11/28/2023 Have You Used IV Drugs? No Information not available 11/28/2023 Do You Have Difficulty Walking Or Climbing Stairs? No [email or web address] Information not available 08/17/2024 Sex: Unknown Functional Status Question Answer Note LastModified by Organizat ion Details LastModified Time Do you use any illicit or recreational drugs? No Information not available 11/28/2023 Do you or have you ever used any other forms of tobacco or nicotine? No Information not available 08/17/2024 What is your level of alcohol consumption? None Information not available 11/28/2023 Are you able to walk? [email or web address] Information not available 11/28/2023 Are you able to care for yourself? Yes [email or web address] Information n ot available 05/21/2024 Do you have difficulty dressing or bathing? No [email or web address] Information not available 08/17/2024 What is your exercise level? Occasional Information not available 11/28/2023 Mental Status Question Answer Note LastModified by Organization D etails LastModified Time Do you feel stressed (tense, restless, nervous, or anxious, or unable to sleep at night)? [id number] Information not available 11/28/2023 Family History Relationship Description Onset Age of this Age Resolved Age Notes LastModified by Organization Details LastModified Time Maternal Grandfather Heart disease [email or web address] Not available 2023 14:06:18 Maternal Grandfather Diabetes mellitus [email or web address] Not available 2023 14:06:18 Medical History Condition Response No Past Medical History Y Gynecological History Statement/Question Response Flow Moderate Date of Last Mammogram Date of LMP 03/12/2024 Was last menstrual period normal Y STIs/STDs Y HPV Vaccine Y Duration of Flow (days) 4 Current Control Method Are cycles usually normal Y Date of Last Colonoscopy Frequency of Cycle (Q days) 35 Sexually Active? Y Date of DEXA bone scan Date of Last Pap Smear Sexual Problems? N LMP Definite Obstetrics History GPAL:G 2 P 0 0 1 0 Type Value Spontaneous 1 Living 0 Total 2 Past Encounters Encounter ID Performer Location Encounter Start Date Encounter Closed Date Diagnosis/Indication Diagnosis SNOMED-CT Code Diagnosis ICD10 Code Diagnosis Note [id number] JEREMI LIM MD [place] [address],[place] [address] 11/28/2023 14:01:20 11/28/2023 15:08:05 Nausea and vomiting 71897281 R11.2 - morning sickness 2/2 early - improved s/p zofran and IV fluids in ER yesterday- able to tolerate PO intake today- discussed warning signs- will send refill of zofran to use PRN [id number] Milton Bustamante MD [place] [address],[place] [address] 12/03/2023 15:14:49 12/03/2023 16:20:52 Threatened miscarriage [id number] O20.0 Z3A.01 Milton Bustamante MD [place] [address],[place] [address] 12/11/2023 10:01:42 12/11/2023 10:25:41 Threatened miscarriage [id number] O20.0 Z3A.01 [id number] JEREMI LIM MD [place] [address],[place] [address] 12/18/2023 11:01:18 12/18/2023 12:03:28 [id number] JEREMI LIM MD [place] [address],[place] [address] 12/21/2023 11:54:32 12/21/2023 12:49:37 test positive [id number] Z32.01 1. Exam today within normal limits.2. Ultrasound today confirms GA and viability. EDC . GC/Clamydi a testing done: will f/u as indicated. 4. ACOG guidelines and plan of care for reviewed with patient. All questions answered.5 . Return to office at 12 weeks for new OB visit6. Will need new OB labs at next visit.7. Genetic screening: desires . Candidiasis of vagina 72 [id number] B37.31 - swab sent today- Diflucan sent [id number] Milton Bustamante MD [place] [address],[place] [address] 01/22/2024 15:57:08 01/22/2024 16:26:02 Missed miscarriage [id number] O02.1 Z3A.00 [id number] JEREMI LIM MD [place] [address],[place] [address] 01/22/2024 16:22:27 01/22/2024 17:09:02 Miscarriage in first trimester [id number] O03.9 - spontaneou s cramping and heavy bleeding starting yesterday- hCG <1000 in ER yesterday- pelvic US today confirms miscarriag e, no GS, YS or FP seen in the uterus- discussed repeat hCG after bleeding resolves to confirm passage of all tissue- 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 Exam today within normal limits.2. Ultrasound today confirms GA and viability. EDC . GC/Clamydi a testing done: will f/u as indicated. 4. ACOG guidelines and plan of care for reviewed with patient. All questions answered.5 . Return to office at 12 weeks for new OB visit6. Will need new OB labs at next visit.7. Genetic screening: desires at 10 weeks, papers given today. [id number] Milton Bustamante MD [place] [address],[place] [address] 06/11/2024 17:26:18 06/12/2024 08:11:28 screening [id number] Z36.82 Z3A.11 [id number] JEREMI LIM MD [place] [address],[place] [address] 06/18/2024 11:38:16 06/19/2024 05:42:16 Gestation period, 12 weeks [id number] Z3A.12 Routine an tenatal care [id number] Z34.91 [id number] JEREMI LIM MD [place] [address],[place] [address] 07/16/2024 10:16:50 07/16/2024 11:13:27 Intermittent palpitations [id number] R00.2 - with MSK chest pain, 3 episodes during - will order Holter monitoring (at least 7-14 days) if episode recurs Gestation period, 16 weeks [id number] Z3A.16 [id number] Milton Bustamante MD [place] [address],[place] [address] 08/12/2024 10:57:55 08/12/2024 12:11:22 Screening status [id number] Z36.3 Z3A.20 [id number] Tonja Mayer [facility] [address],[place] [address] 08/12/2024 10:58:10 08/12/2024 12:32:59 Gestation period, 20 weeks [id number] Z3A.20 continue vitamin Health Concerns Section Related Observation LastModified by Organization Detai ls LastModified Time None Recorded Concern Status LastModified by Organization Details LastModified Time None Recorded Advance Directives Directive None Recorded Payers Encounter Date Sequence Insurance Name Policy Number Policy Lara Covered Member ID Lara Member ID Guarantor Name 06/11/2024 1 [facility] (MEDICAID HMO) [id number] Agueda Doty [id number] Agueda Doty 06/18/2024 1 [facility] (MEDICAID HMO) [id number] Agueda Doty [id number] Agueda Doty 07/16/2024 1 [facility] (MEDICAID HMO) [id number] Agueda Doty [id number] Agueda Doty 08/12/2024 1 [facility] (MEDICAID HMO) [id number] Agueda Doty [id number] Agueda Doty 08/12/2024 1 [facility] (MEDICAID HMO) [id number] 0003 Agueda Doty [id number] Agueda Doty OBGyn Episode Ob Episode Information Episode Created Date Number of Fetuses Patient Bloodtype Patient rh Status Prepregnancy Weight lbs Domestic Partner Domestic Partner Phone Father Name Brush Stainer Status 05/21/19 25 1 CLOSED Fetus Data First Name Last Name Admitted to NICU Weight (g) Sex Living Outcome Pediatric Complications Fetus ID Race Codes Race Delivery Type , Spontane ous [id number] Stu Calculation Initial Stu Date Initial Exam Date Initial Exam Provider Initial Ultrasound Date Last Menstrual Period Date Ultra Sound Weeks Gestation 0 Eighteen To Twenty Week Stu Update Ultra Sound Date Fundal Height At Umbil Quickening Date Ultra Sound Latest Weeks Gestation Final Stu Confirmed By Final Stu Confirmed Date Final Stu Date Ultra Sound Latest Days Gestation 0 0 Menstrual History Last Menstrual Date Menses Monthly On Bcp Conception Prior Menses Frequency Hcg Plus Date Menarche Onset Age Delivery Information Delivery Date Delivery Type Labor Anesthesia Weeks Gestation Incision Type Labor Labor Length Hrs Delivered By Post Complications Tubal Sterilization Discharge Date Comments Discharge Information Feeding Method Contraceptive Method Maternal HG B and HCT Levels Ob Episode Information Episode Created Date Number of Fetuses Patient Bloodtype Patient rh Status Prepregnancy Weight lbs Domestic Partner Domestic Partner Phone Father Name Brush Stainer Status 06/18/19 25 1 A Negative 168 Greg OPEN Fetus Data First Name Last Name Admitted to NICU Weight (g) Sex Living Outcome Pediatric Complications Fetus ID Race Codes Race Delivery Type [id number] Problems Problem Notes Problem Name Start Date End Date Resolution Snomed Code Not e Placenta circumvallata 08/13/2024 [id number] 0 32 wk growth us Stu Calculation Initial Stu Date Initial Exam Date Initial Exam Provider Initial Ultrasound Date Last Menstrual Period Date Ultra Sound Weeks Gestation 12/27/2024 05/20/2024 [email or web address] 05/20/2024 03/12/2024 8 Eighteen To Twenty Week Stu Update Ultra Sound Date Fundal Height At Umbil Quickening Date Ultra Sound Latest Weeks Gestation Final Stu Confirmed By Final Stu Confirmed Date Final Stu Date Ultra Sound Latest Days Gestation 0 [email or web address] 06/19/2024 12/28/19 25 0 Pre-srinivasan Flowsheet Flowsheet Date 06/18/2024 Cuellar Score Blood Edema Fundus Height Fundus Units Glucose Ketones Leukocytes Nitrite Labor Signs Protein Cervic Dilation Cervic Effacement Cervic Station Type Weight in lbs Pre/Post Dialysis Refused Weight 167.077486129665 BP Diastolic BP Location Tested BP Systolic BP Type 68 L arm 144 sitting Fetus Heart Rate Present A Present Fetus Movement Comments Patient presents to [facility] care. Hx of miscarriage in previous , monosomy X. otherwise uncomplicated. Nausea improved, no bleeding or cramping. NT/NB wnl today, LR male NIPT!. Will draw new OB labs. RTC 4 weeks for routine care. Flowsheet Date 07/16/2024 Cuellar Score Blood Edema Fundus Height Fundus Units Glucose Ketones Leukocytes Nitrite Labor Signs Protein Cervic Dilation Cervic Effacement Cervic Station neg none Type Weight in lbs Pre/Post Dialysis Refused Weight 166.910883730591 BP Diastolic BP Location Tested BP Systolic BP Type 78 L arm 130 sitting Fetus Heart Rate Present A 145 Fetus Movement A No Comments Very mild nausea in the morn ing, much better now that she is in the 2nd trimester. Has had some episodes of intermittent chest pain that is worse with breathing deeply. Usually resolves within an hour. Tenderness at solar plexus. Reports 3 episodes thus far, last episode was 1 week ago. Will order Holter monitor if it recurs. Otherwise doing well, no bleeding or cramping. Discussed anatomy US for next visit. Flowsheet Date 08/12/2024 Cuellar Score Blood Edema Fundus Height Fundus Units Glucose Ketones Leukocytes Nitrite Labor Signs Protein Cervic Dilation Cervic Effacement Cervic Station Type Weight in lbs Pre/Post Dialysis Refused BP Diastolic BP Location Tested BP Systolic BP Type Fetus Heart Rate Present Fetus Movement Comments Flowsheet Date 08/12/2024 Cuellar Score Blood Edema Fundus Height Fundus Units Glucose Ketones Leukocytes Nitrite Labor Signs Protein Cervic Dilation Cervic Effacement Cervic Station neg none Type Weight in lbs Pre/Post Dialysis Refused 168.431644568950 BP Diastolic BP Location Tested BP Systolic BP Type 83 125 Fetus Heart Rate Present Fetus Movement A Yes Comments Patient is having some BH co ntraction. 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
[2024-09-03 22:44] VITALS: BP 125/74; PULSE 75; RESP 18; TEMP 36.8; O2SAT 100
--- NOTE | 2024-09-03 22:53 | ECG_ITS ---
Test Date: 2024-09-03 22:56:27 Measurements Intervals [place] Rate: 66 P: 33 OR: 119 QRS: 64 QRSD: 81 T: 40 QT: 425 QTc: 446 Interpretive Statements SINUS RHYTHM WITH SHORT OR INTERVAL No previous ECG available for comparison Electronically Signed On 09-04-2024 15:56:43 CDT by Amaury Peralta M.D.
[2024-09-03 23:04] VITALS: PULSE 71; O2SAT 98
[2024-09-03 23:10] LABS: Basophils Percent Auto 0.3 % (0.2-1.2); Eosinophils Absolute Auto 0.1 K/mm3 (0-0.3); Eosinophils Percent Auto 0.6 % (0-4.4); Hematocrit 31.9 % (37.0-47.0); Hemoglobin 10.1 g/dL (12.0-15.0); Immature Granulocyte Absolute 0.03 K/mm3 (0.00-0.031); Immature Granulocyte Percent A 0.3 % (0-0.5); Lymphocytes Absolute Auto 1.62 K/mm3 (0.9-3.2); Lymphocytes Percent Auto 15.7 % (18.3-44.2); Mean Corpuscular HGB Conc 31.7 g/dl (32-36); Mean Corpuscular Hemoglobin 26.4 pg (26-34); Mean Corpuscular Volume 83.3 fl (80-100); Mean Platelet Volume 11.5 fl (7.4-10.4); Monocytes Absolute Auto 0.9 K/mm3 (0.1-0.6); Monocytes Percent Auto 8.6 % (2.6-8.5); Neutrophils Absolute Auto 7.7 K/mm3 (1.3-6.7); Neutrophils Percent Auto 74.5 % (45.5-73.1); Platelet Count Result 288 k/mm3 (150-375); Red Blood Count 3.83 M/mm3 (4.2-5.4); Red Cell Distribution Width 13.2 % (11.5-14.5); White Blood Count 10.3 K/mm3 (4.5-10.0)
[2024-09-03 23:16] VITALS: BP 106/50; PULSE 64; RESP 17; O2SAT 99
--- NOTE | 2024-09-03 23:18 | ED.CHESTPAIN ---
HPI - Chest Pain General Chief Complaint: Chest Pain Stated Complaint: chest and RUQ abd pain, 24 wks preg Time Seen by Provider: 09/03/24 22:43 Source: patient Mode of arrival: ambulatory Limitations: no limitations History of Present Illness HPI narrative: Patient is a 18 y/o female who presents to the ED with c/o RUQ ABD pain. Patient reports she has been dealing with intermittent right upper quadrant abdominal pain since April. Had been occurring approximately once per month, typically at night. States it seems to be occurring more frequently. She had an episode on Sunday. Had another episode tonight which has been more severe and lasting longer. Pain radiates to her right mid back, right shoulder. She reports associated nausea/vomiting, indigestion. Denies fevers, diarrhea, constipation. Patient has not taken anything for pain. Patient is currently 24 weeks gestation. She sees Tonja Mayer with [facility]. Denies lower abdominal pain, vaginal bleeding, leakage of fluid. Related Data Home Medications ?Medication ?Instructions ?Recorded ?Confirmed ?Last Taken ?Type No Home Medications 05/17/22 05/17/22 Unknown History Allergies Allergy/AdvReac Type Severity Reaction Status Date / Time No Known Allergies Allergy Verified 09/03/24 22:41 Review of Systems Review of Systems: All systems reviewed & are unremarkable except as noted in HPI. All systems reviewed & are unremarkable except as noted in HPI and below Exam Narrative: GENERAL: Uncomfortable appearing, obese with BMI of 31.4, non-toxic, in no acute distress. HEAD: Normocephalic, atraumatic. RESPIRATORY: Airway patent, respirations nonlabored. Clear to auscultation bilaterally, no rales, rhonchi, wheezing. CARDIOVASCULAR: Regular rate and rhythm without murmurs, rubs, or gallops. ABDOMINAL: Soft, focal tenderness in right upper quadrant, positive Terrazas sign. Normoactive BS. MUSCULOSKELETAL: Moves all extremities. No gross deformities. SKIN: Warm, dry, normal color. NEURO: A&O X3. Speech clear. Cranial nerves II-XII grossly intact. Steady gait. No ataxic movements. PSYCHIATRIC: Appropriate mood and affect. Normal interaction. Course Vital Signs Vital signs: Vital Signs Temperature 98.2 F 09/03/24 22:44 Pulse Rate 75 09/03/24 22:44 Respiratory Rate 18 09/03/24 22:44 Blood Pressure 125/74 09/03/24 22:44 Pulse Oximetry 100 09/03/24 22:44 Oxygen Delivery Room Air 09/03/24 22:44 Temperature 98.2 F 09/03/24 22:44 Pulse Rate 71 09/03/24 23:04 Respiratory Rate 18 09/03/24 22:44 Blood Pressure 125/74 09/03/24 22:44 Pulse Oximetry 98 09/03/24 23:04 Oxygen Delivery Room Air 09/03/24 23:04 MDM - Chest Pain MDM Narrative Medical decision making narrative: Patient presented to ED with right upper quadrant abdominal pain. Has been intermittent for the past few months, becoming more frequent, severe episode tonight. Patient is currently 24 weeks gestation. Vital signs are stable upon arrival. She is afebrile here. Patient does appear very uncomfortable. CBC with white blood cell count of 10.3. Mild anemia noted at 10.1. No recent records to compare to. CMP with bicarb of 19, stable kidney function. AST 62, ALT 47. Normal total bili, normal alk-phos. Lipase within normal range. Trop undetectable. Bedside ultrasound utilized with assistance of Dr. Leone, appears to have gallbladder sludge vs stones in gallbladder. Patient exquisitely tender in RUQ on exam and with US. +Terrazas's sign. Given this, with mild transaminitis, concerned for acute cholecystitis. Will discuss with surgery admission overnight for formal RUQ US in the am. Discussed case with Dr. Lucas, general surgery, agrees w/ plan, will consult. Discussed case with Dr. Bustamante, OBGYN lubrication supervisor for [facility], accepted patient for admission under his service. Patient is in agreement with plan and admission. Medical Records Data Attestation: I reviewed the patient's medical records. Lab Data Attestation: I reviewed the patient's lab results. 09/03/24 23:01 09/03/24 23:01 Labs: Lab Results 09/03/24 09/03/24 Range/Units 23:01 23:56 WBC 10.3 H (4.5-10.0) K/mm3 RBC 3.83 L (4.2-5.4) M/mm3 Hgb 10.1 L (12.0-15.0) g/dL Hct 31.9 L (37.0-47.0) % MCV 83.3 (80-100) fl MCH 26.4 (26-34) pg MCHC 31.7 L (32-36) g/dl RDW 13.2 (11.5-14.5) % Plt Count 288 (150-375) k/mm3 MPV 11.5 H (7.4-10.4) fl Immature Gran % (Auto) 0.3 (0-0.5) % Neut % (Auto) 74.5 H (45.5-73.1) % Lymph % (Auto) 15.7 L (18.3-44.2) % [place] % (Auto) 8.6 H (2.6-8.5) % Eos % (Auto) 0.6 (0-4.4) % Baso % (Auto) 0.3 (0.2-1.2) % Lymph # (Auto) 1.62 (0.9-3.2) K/mm3 [place] # (Auto) 0.9 H (0.1-0.6) K/mm3 Eos # (Auto) 0.1 (0-0.3) K/mm3 Baso # (Auto) 0.0 (0.0-0.1) K/mm3 Abs Immat Gran (auto) 0.03 (0.00-0.031) K/mm3 Absolute Neuts (auto) 7.7 H (1.3-6.7) K/mm3 Absolute Nucleated RBC 0.000 (0.0-0.012) K/mm3 Nucleated RBC % 0.0 (0.0-0.2) % PT 13.0 (11.1-14.7) Seconds INR 1.0 APTT 23.8 (22.3-36.8) Seconds Sodium 136 L (137-145) mmol/L Potassium 3.4 (3.4-5.0) mmol/L Chloride 107 (98-107) mmol/L Carbon Dioxide 19 L (22-30) mmol/L Anion Gap 10 (4-12) mmol/L BUN 4 L (7-17) mg/dL Creatinine 0.52 L (0.7-1.0) mg/dL Estim Creat Clear Calc 134 ml/min Estimated GFR > 60 (59 - ) Glucose 90 (65-110) mg/dL Calcium 8.6 (8.4-10.2) mg/dL Total Bilirubin 0.9 (0.2-1.3) mg/dL AST 62 H (14-36) U/L ALT 47 H (6-35) U/L Alkaline Phosphatase 89 (38-126) U/L Troponin I < 0.012 (0.000-0.034) ng/mL Total Protein 7.0 (6.3-8.2) g/dL Albumin 3.8 (3.5-5.1) g/dL Lipase 154 (23-300) U/L Urine Color Dark yellow (Yellow) Urine Appearance Cloudy H (Clear) Urine pH 7.5 (5.0-9.0) Ur Specific [place] 1.025 (1.001-1.035) Urine Protein 1+ H (Negative) mg/dL Urine Glucose (UA) Negative (Negative) mg/dL Urine Ketones 3+ H (Negative) mg/dL Ur Blood (Man) Negative (Negative) Urine Nitrate Negative (Negative) Urine Bilirubin 1+ H (Negative) Urine Urobilinogen 1.0 (<2.0) mg/dL Leukocyte Esterase Rfl Trace H (Negative) JENI/UL Urine RBC 0-2 (0-2) /hpf Urine WBC 0-5 (0-3) /hpf Ur Squamous Epith Cells Moderate (Few) /hpf Urine Bacteria 1+ H /hpf Urine Casts 0-2 ECG Data EKG #1: Attestation: I personally reviewed and interpreted this ECG as follows: ECG completion date: 09/03/24 ECG completion time: 22:56 EKG Interpretation: normal rate (66), sinus rhythm, no ST changes and other (short CT interval) Discharge Plan Discharge Clinical Impression: Right upper quadrant abdominal pain, 24 weeks gestation of , Transaminitis Patient Disposition: Still a Patient Condition: Stable Patient Language: Turkish Prescriptions: No Action No Home Medications Follow-up/Referrals: PHYSICIAN,SOCIAL HUMAN SERVICES [facility]IST[facility] [Primary Care Provider] -
[2024-09-03 23:20] LABS: Alanine Aminotransferase 47 U/L (6-35); Albumin Level 3.8 g/dL (3.5-5.1); Alkaline Phosphatase 89 U/L (38-126); Anion Gap 10 mmol/L (4-12); Aspartate Amino Transferase 62 U/L (14-36); Bilirubin,Total 0.9 mg/dL (0.2-1.3); Blood Urea Nitrogen 4 mg/dL (7-17); Calcium 8.6 mg/dL (8.4-10.2); Carbon Dioxide 19 mmol/L (22-30); Chloride 107 mmol/L (98-107); Estimated CRCL calculation 134 ml/min; Estimated Glomerular Filt Rate > 60; Glucose 90 mg/dL (65-110); Lipase 154 U/L (23-300); Potassium 3.4 mmol/L (3.4-5.0); Sodium 136 mmol/L (137-145)
--- OUTSIDE RECORDS SUMMARY | 2024-09-03 23:21 | XMS_ITS | Clinical Summary ---
Author Organization [facility] Address [address] [facility] [place] [address] Phone Care Team Providers Care Regional Service Manager Name Role Phone Otoniel Noonan MD Primary Care Provider [phone] Harpreet Burch DPM Unavailable [phone] Allergies No known active allergies Medications [...] age to complete this topic Insurance MEDICAID [employer]ICAID [facility] Care Teams Regional Service Manager Relationship Specialty Start Date End Date Otoniel Noonan MD [address] [place] [address] PCP - General Pediatrics 10/19/16 Harpreet Burch DPM [address] [place] [address] Consulting Physician Podiatry 10/19/16
--- OUTSIDE RECORDS SUMMARY | 2024-09-03 23:22 | XMS_ITS | Clinical Summary ---
Author Organization [facility] Address [address] [place] [address] Care Team Providers Care Transportation Maintenance Worker Name Role Phone Unavailable Primary Care Provider Unavailabl e Source Comments [facility],non-owned Affiliates and Associated Physician Practices is amultiple site organization consisting of ambulatory clinics and hospital sitesin [place], [place], [place] and [place]. This disclosure is being madepursuant to the Care Everywhere program and may not contain all information available regarding this patient. 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
[2024-09-03 23:29] LABS: Partial Thromboplastin Time 23.8 Seconds (22.3-36.8)
[2024-09-03 23:31] VITALS: BP 112/56; PULSE 63; RESP 14; O2SAT 99
[2024-09-03 23:46] VITALS: BP 116/59; PULSE 66; RESP 14; O2SAT 98
[2024-09-03 23:48] LABS: Troponin I < 0.012 ng/mL (0.000-0.034)
[2024-09-03] MEDS: ACETAMINOPHEN 500 MG TABLET 1000 MG PO (23:55)
[2024-09-04] VITALS (8 sets, daily range): BP systolic 105–118; BP diastolic 48–65; PULSE 55–93; RESP 16–18; TEMP 36.3–36.6; O2SAT 99–100; BMI 31.5
[2024-09-04] MEDS: FAMOTIDINE 20 MG/2 ML VIAL IV PUSH (00:04)
[2024-09-04] MEDS: METOCLOPRAMIDE HCL INJ 10 MG/2 ML VIAL IV PUSH (00:04)
[2024-09-04] MEDS: SODIUM CHLORIDE 0.9% IV 1,000 ML 999 ML IV CONT (00:04)
[2024-09-04] MEDS: diphenhydrAMINE HCl INJ 50 MG/ML VIAL 25 MG IV PUSH (00:04)
[2024-09-04 00:16] LABS: Add Urine Microscopic? YES; Appearance Urine Cloudy (Clear); Bacteria Urine 1+ /hpf; Bilirubin Urine 1+ (Negative); Blood Urine Negative (Negative); Color Urine Dark Yellow (Yellow); Glucose Urine UA Negative (Negative); Ketones Urine 3+ mg/dL (Negative); Leukocyte Esterase Ur Trace LEU/UL (Negative); Nitrate Urine Negative (Negative); Non Pathogenic Casts 0-2; Protein Urine 1+ mg/dL (Negative); RBC Urine 0-2 /hpf (0-2); Specific Grav Ur 1.025 (1.001-1.035); Squamous Epithelial Cell Urine Moderate /hpf (Few); WBC Urine 0-5 /hpf (0-3); pH Urine 7.5 (5.0-9.0)
[2024-09-04] MEDS: MORPHINE SULFATE (*CRX) 4 MG/ML INJ IV PUSH (00:21)
[2024-09-04] MEDS: SODIUM CHLORIDE 0.9% IV 1,000 ML 100 ML IV CONT ×3 (01:45→20:20)
--- NOTE | 2024-09-04 01:51 | ADMGEN ---
This patient, Agueda Doty, was admitted to Medical Room 254-01. Patient/family oriented to hospital policies and general routines including ID bracelet, bed and alarms, visiting hours, pain management, procedures, bathroom and other care routines, personal items, smoking policy, room service/diet, and visiting hours. Information on how to activate the Rapid Response Team has been discussed. Patient/Family are encouraged to report perceived risks to care and to ask questions if they do not understand what they are told or what they should do.
--- NOTE | 2024-09-04 07:21 | PC.NURSE ---
Called Makenna Mayer CNM and updated on pt admission. Orders received for NST every shift. Notified pt primary RNJoe.
--- NOTE | 2024-09-04 08:43 | P.HP_ITS ---
H&P: [facility] History of Present Illness Date/Time: 09/04/24 08:43 Chief Complaint: Abdominal pain Narrative: This patient is a 18-year-old 2 para 0 at 23 weeks gestation who presented emergency department with right upper quadrant pain. Pain is intermittent, colicky, and associated with postprandial period. A bedside ultrasound done by ER physician showed sludge in the gallbladder. She was admitted for observation. General surgery to consult. Reassuring heart tones, she denies any cramping or vaginal bleeding. She denies any nausea, vomiting, fever, chills. She denies any chest pain or shortness of breath. To observe and consider discharge after general surgery consultation. Review of Systems Review of Systems: All systems reviewed & are unremarkable except as noted in HPI and below Constitutional: Constitutional: Denies chills, Denies fatigue, Denies fever(s) and Denies weakness Eyes: Eyes: Denies blurry vision, Denies change in vision, Denies loss of peripheral vision, Denies loss of vision, Denies other visual disturbances and Denies eye pain ENT: Denies vertigo, Denies dizziness, Denies hearing loss, Denies mouth pain, Denies nasal obstruction, Denies neck mass and Denies neck pain Cardiovascular: Cardiovascular: Denies chest pain, Denies diaphoresis, Denies syncope, Denies leg edema and Denies dyspnea Respiratory: Respiratory: Denies chest congestion, Denies cough, Denies hemoptysis, Denies dyspnea and Denies wheezing Gastrointestinal: Gastrointestinal: Denies abdominal pain, Denies constipation, Denies diarrhea, Denies nausea and Denies vomiting Genitourinary: Genitourinary: Denies hematuria, Denies change in libido, Denies nocturia, Denies genital lesions, Denies flank pain and Denies urinary urgency Musculoskeletal: Musculoskeletal: Denies abnormal gait, Denies back pain, Denies myalgias, Denies arthralgias, Denies joint swelling, Denies muscle weakness and Denies neck pain Integumentary/Breasts: Skin/Breast: Denies swelling, Denies breast pain, Denies breast mass, Denies dry skin, Denies nipple discharge, Denies unusual bruising and Denies jaundice Neurologic: Denies Neuro-related abnormal movements, Denies Abnormal speech present, Denies abnormal gait, Denies behavioral changes, Denies confusion, Denies vertigo, Denies dizziness, Denies syncope, Denies loss of vision, Denies memory loss, Denies convulsions and Denies weakness Psychiatric: Psychiatric: Denies abnormal sleep pattern, Denies behavioral changes, Denies change in libido, Denies confusion, Denies depression, Denies anhedonia and Denies memory loss Endocrine: Endocrine: Reports no additional endocrine complaints, Denies change in libido and Denies fatigue Hematologic/Lymphatic: Hematologic/Lymphatic: Reports no additional hematologic/lymphatic complaints Allergic/Immunologic: Allergic/Immunologic: Reports no additional allergic/immunologic complaints and Denies wheezing PMFSH Social History Social History Smoking status: Never smoker Second hand tobacco smoke exposure: No Alcohol intake: never Substance use: never Do You Feel Safe in your Home?: Yes Lack of Transportation: No Lack of Food: Never True Current Housing: I Have Housing Concerned About Future Housing: No Difficulty Paying Gas/Electric Bills: No Difficulty Paying for Meds: No Currently Unemployed: No Education: High School Diploma/GED Difficulty w/ Childcare or Family Care: No Spiritual care concerns: No Meds Home Medications and Allergies Home Medications ?Medication ?Instructions ?Recorded ?Confirmed ?Type calcium carbonate (Tums) 200 mg PO QID PRN dyspepsia 09/04/24 09/04/24 History vitamins no.144-folic 1 tablet PO DAILY 09/04/24 09/04/24 History acid 400 mcg chewable tablet () Allergies Allergy/AdvReac Type Severity Reaction Status Date / Time No Known Allergies Allergy Verified 09/03/24 22:41 Vital Signs Vital Signs - 24 hr 09/03/24 22:44 09/03/24 23:04 09/03/24 23:04 Temperature 98.2 F Pulse Rate 75 71 Respiratory Rate 18 Blood Pressure 125/74 Pulse Oximetry 100 98 Oxygen Delivery Room Air Room Air 09/03/24 23:16 09/03/24 23:31 09/03/24 23:46 Temperature Pulse Rate 64 63 66 Respiratory Rate 17 14 14 Blood Pressure 106/50 L 112/56 L 116/59 L Pulse Oximetry 99 99 98 Oxygen Delivery 09/04/24 01:30 09/04/24 02:05 09/04/24 04:04 Temperature 97.6 F 97.8 F Pulse Rate 71 71 55 L Respiratory Rate 17 17 17 Blood Pressure 108/59 L 105/48 L Pulse Oximetry 100 100 100 Oxygen Delivery Room Air 09/04/24 08:41 Temperature Pulse Rate Respiratory Rate Blood Pressure Pulse Oximetry 99 Oxygen Delivery Room Air Exam Const: General: cooperative, healthy appearing, comfortable and no acute distress Orientation/consciousness: oriented to person, oriented to place and oriented to time HENMT: Head: normal to inspection Ears: external ears normal Face/Nose/Sinus: Normal external nose present and normal facial exam Face and sinus: normal facial exam Eyes: General: appearance normal, both eyes and all related structures Neck: Neck: normal visual inspection, trachea midline and supple Resp: Auscultation: clear to auscultation bilaterally, no crackles, no rales, no rhonchi and no wheezes Cardio: Rate: regular rate Rhythm: regular rhythm Heart sounds: no click, no murmurs and no rubs GI: GI Palp: No abdominal tenderness, No Soft to palpation, No Tenderness to palpation present (GI) and No Palpable mass present Auscultation: normal bowel sounds Skin: General skin exam: normal color and no rashes or lesions noted Neuro: General: oriented to person, oriented to place and oriented to time Extrem: General: normal to inspection, no joint enlargement, no clubbing, cyanosis or edema, no pedal edema and no calf tenderness Psych: Appearance: grossly normal Mental Status: mental status grossly normal Speech and movement: Normal speech and movement present H&P: Results Labs Labs: Short CBC 09/03/24 Range/Units 23:01 WBC 10.3 H (4.5-10.0) K/mm3 Hgb 10.1 L (12.0-15.0) g/dL Hct 31.9 L (37.0-47.0) % Plt Count 288 (150-375) k/mm3 BMP 09/03/24 23:01 Sodium 136 L Potassium 3.4 Chloride 107 Carbon Dioxide 19 L BUN 4 L Creatinine 0.52 L Glucose 90 Calcium 8.6 Cardiac Enzymes 09/03/24 Range/Units 23:01 Troponin I < 0.012 (0.000-0.034) ng/mL Liver Function 09/03/24 Range/Units 23:01 Total Bilirubin 0.9 (0.2-1.3) mg/dL AST 62 H (14-36) U/L ALT 47 H (6-35) U/L Alkaline Phosphatase 89 (38-126) U/L Albumin 3.8 (3.5-5.1) g/dL Urine 09/03/24 Range/Units 23:56 Urine Color Dark yellow (Yellow) Urine Appearance Cloudy H (Clear) Urine pH 7.5 (5.0-9.0) Ur Specific [place] 1.025 (1.001-1.035) Urine Protein 1+ H (Negative) mg/dL Urine Glucose (UA) Negative (Negative) mg/dL Assessment and Plan Assessment and plan (1) Second trimester : Code(s): Z34.92 - Encounter for supervision of normal , unspecified, second trimester Status: Acute (2) Right upper quadrant abdominal pain: Code(s): R10.11 - Right upper quadrant pain Status: Acute Plan This patient is a 18-year-old 2 para 0 at 23 weeks gestation who presented emergency department with right upper quadrant pain. Pain is intermittent, colicky, and associated with postprandial period. A bedside ultrasound done by ER physician showed sludge in the gallbladder. She was admitted for observation. General surgery to consult. Reassuring heart tones, she denies any cramping or vaginal bleeding. She denies any nausea, vomiting, fever, chills. She denies any chest pain or shortness of breath. To observe and consider discharge after general surgery consultation.
--- NOTE | 2024-09-04 11:02 | PM.CNGS ---
Assessment and Plan Assessment and plan (1) Right upper quadrant abdominal pain: Code(s): R10.11 - Right upper quadrant pain Status: Acute Assessment and Plan: This is a 24 week patient whop resented with intermittent RUQ abdominal pain over the past 5 months and a more severe episode last night. She is feeling much better this morning and is not having any abdominal pain at the time of my exam. She still has some RUQ tenderness, but reportedly improved. RUQ ultrasound showed gallbladder sludge with gallbladder polyps vs small stones. No evidence of acute cholecystitis. I discussed the case with Dr. Mae, who will discuss with Obstetrics. She is in her second trimester, which is the ideal time for surgical management during if indicated. (2) Cholelithiasis: Code(s): K80.20 - Calculus of gallbladder without cholecystitis without obstruction Status: Acute (3) Transaminitis: Code(s): R74.01 - Elevation of levels of liver transaminase levels Status: Acute (4) 24 weeks gestation of : Code(s): Z3A.24 - 24 weeks gestation of Status: Acute Plan I have discussed the patient's case and plan of care with Dr. Mae. History of Present Illness Consult details Consult date: 09/04/24 Reason for consult: other (RUQ pain, possible cholecystitis) Requesting physician: An Ac PA-C Narrative: This is a 18-year-old woman who is 24 weeks gestation, that we have been asked to see for RUQ pain and possible cholecystitis. She has had intermittent episodes of RUQ pain since April. Her pain was associated with nausea and vomiting, and would typically occur at night. She cannot recall if it occurs after eating fatty meals. Over the past few weeks, her symptoms have been more frequent. She had an episode on Sunday night after eating barbecue, which resolved with time. She then developed RUQ pain around 7:30 pm last night. She had eaten a [employer] sandwich and shortly after had [employer] milk tea. She had associated nausea and vomiting. Her pain radiated into her right upper back and around her right shoulder. Her pain was more intense than previous episodes, therefore she came into the ED for evaluation. Labs showed WBC count 10,300 and mildly elevated AST and ALT. Other labs unremarkable. She was admitted to OBGYN in the setting of RUQ pain. RUQ ultrasound ordered this morning. No previous abdominal surgery. Review of Systems Review of Systems: All systems reviewed & are unremarkable except as noted in HPI and below PMFSH Social History Social History Smoking status: Never smoker Second hand tobacco smoke exposure: No Alcohol intake: never Substance use: never Do You Feel Safe in your Home?: Yes Lack of Transportation: No Lack of Food: Never True Current Housing: I Have Housing Concerned About Future Housing: No Difficulty Paying Gas/Electric Bills: No Difficulty Paying for Meds: No Currently Unemployed: No Education: High School Diploma/GED Difficulty w/ Childcare or Family Care: No Spiritual care concerns: No Meds Home Medications and Allergies Home Medications ?Medication ?Instructions ?Recorded ?Confirmed ?Type calcium carbonate (Tums) 200 mg PO QID PRN dyspepsia 09/04/24 09/04/24 History vitamins no.144-folic 1 tablet PO DAILY 09/04/24 09/04/24 History acid 400 mcg chewable tablet () Allergies Allergy/AdvReac Type Severity Reaction Status Date / Time No Known Allergies Allergy Verified 09/03/24 22:41 Vital Signs Vital Signs - 24 hr 09/03/24 22:44 09/03/24 23:04 09/03/24 23:04 Temperature 98.2 F Pulse Rate 75 71 Respiratory Rate 18 Blood Pressure 125/74 Pulse Oximetry 100 98 Oxygen Delivery Room Air Room Air 09/03/24 23:16 09/03/24 23:31 09/03/24 23:46 Temperature Pulse Rate 64 63 66 Respiratory Rate 17 14 14 Blood Pressure 106/50 L 112/56 L 116/59 L Pulse Oximetry 99 99 98 Oxygen Delivery 09/04/24 01:30 09/04/24 02:05 09/04/24 04:04 Temperature 97.6 F 97.8 F Pulse Rate 71 71 55 L Respiratory Rate 17 17 17 Blood Pressure 108/59 L 105/48 L Pulse Oximetry 100 100 100 Oxygen Delivery Room Air 09/04/24 08:40 09/04/24 08:41 Temperature Pulse Rate 70 Respiratory Rate Blood Pressure Pulse Oximetry 99 Oxygen Delivery Room Air Exam Const: General: comfortable and no acute distress Nutritional Appearance: average body habitus Orientation/consciousness: patient oriented x3 HENMT: Head: normocephalic and atraumatic Ears: hearing grossly normal bilaterally Mouth: Yes moist mucous membranes Eyes: General: appearance normal, both eyes and all related structures Pupils: Equal, round and reactive pupils present Neck: Neck: normal visual inspection and full ROM Resp: Effort & Inspection: no respiratory distress Auscultation: clear to auscultation bilaterally Cardio: Rate: regular rate Rhythm: regular rhythm Peripheral pulses: Peripheral pulses 2+ throughout GI: Inspection: non-distended, no scars and striae GI Palp: Yes Soft to palpation, Yes Tenderness to palpation present (GI) (RUQ), No Guarding due to palpation present (GI), No Rebound tenderness present and Yes Other GI palpation findings present (gravid uterus) Auscultation: normal bowel sounds Skin: General skin exam: normal color Neuro: General: moves all extremities and no focal motor deficits Speech: normal speech Motor exam (neuro): 5/5 motor strength present throughout Extrem: General: normal to inspection and no edema Psych: Mental Status: mental status grossly normal Attitude: cooperative Insight: Good insight present (Psych) Judgement: Good judgement present (Psych) Results Labs 09/03/24 23:01 09/03/24 23:01 Labs: Abnormal lab results 09/03/24 09/03/24 Range/Units 23:01 23:56 WBC 10.3 H (4.5-10.0) K/mm3 RBC 3.83 L (4.2-5.4) M/mm3 Hgb 10.1 L (12.0-15.0) g/dL Hct 31.9 L (37.0-47.0) % MCHC 31.7 L (32-36) g/dl MPV 11.5 H (7.4-10.4) fl Neut % (Auto) 74.5 H (45.5-73.1) % Lymph % (Auto) 15.7 L (18.3-44.2) % [place] % (Auto) 8.6 H (2.6-8.5) % [place] # (Auto) 0.9 H (0.1-0.6) K/mm3 Absolute Neuts (auto) 7.7 H (1.3-6.7) K/mm3 Sodium 136 L (137-145) mmol/L Carbon Dioxide 19 L (22-30) mmol/L BUN 4 L (7-17) mg/dL Creatinine 0.52 L (0.7-1.0) mg/dL AST 62 H (14-36) U/L ALT 47 H (6-35) U/L Urine Appearance Cloudy H (Clear) Urine Protein 1+ H (Negative) mg/dL Urine Ketones 3+ H (Negative) mg/dL Urine Bilirubin 1+ H (Negative) Leukocyte Esterase Rfl Trace H (Negative) JENI/UL Urine Bacteria 1+ H /hpf Diabetes panel 09/03/24 Range/Units 23:01 Sodium 136 L (137-145) mmol/L Potassium 3.4 (3.4-5.0) mmol/L Chloride 107 (98-107) mmol/L Carbon Dioxide 19 L (22-30) mmol/L BUN 4 L (7-17) mg/dL Creatinine 0.52 L (0.7-1.0) mg/dL Glucose 90 (65-110) mg/dL Calcium 8.6 (8.4-10.2) mg/dL AST 62 H (14-36) U/L ALT 47 H (6-35) U/L Alkaline Phosphatase 89 (38-126) U/L Total Protein 7.0 (6.3-8.2) g/dL Albumin 3.8 (3.5-5.1) g/dL Calcium panel 09/03/24 Range/Units 23:01 Calcium 8.6 (8.4-10.2) mg/dL Albumin 3.8 (3.5-5.1) g/dL Pituitary panel 09/03/24 Range/Units 23:01 Sodium 136 L (137-145) mmol/L Potassium 3.4 (3.4-5.0) mmol/L Chloride 107 (98-107) mmol/L Carbon Dioxide 19 L (22-30) mmol/L BUN 4 L (7-17) mg/dL Creatinine 0.52 L (0.7-1.0) mg/dL Glucose 90 (65-110) mg/dL Calcium 8.6 (8.4-10.2) mg/dL Adrenal panel 09/03/24 Range/Units 23:01 Sodium 136 L (137-145) mmol/L Potassium 3.4 (3.4-5.0) mmol/L Chloride 107 (98-107) mmol/L Carbon Dioxide 19 L (22-30) mmol/L BUN 4 L (7-17) mg/dL Creatinine 0.52 L (0.7-1.0) mg/dL Glucose 90 (65-110) mg/dL Calcium 8.6 (8.4-10.2) mg/dL Total Bilirubin 0.9 (0.2-1.3) mg/dL AST 62 H (14-36) U/L ALT 47 H (6-35) U/L Alkaline Phosphatase 89 (38-126) U/L Total Protein 7.0 (6.3-8.2) g/dL Albumin 3.8 (3.5-5.1) g/dL All other labs normal. Imaging Additional studies: ITS Impressions Abdomen Ultrasound 09/04/24 08:56 Impression: Gallbladder sludge with small stones and/or polyps.
[2024-09-04] MEDS: ACETAMINOPHEN 325 MG TABLET 650 MG PO (20:19)
[2024-09-05 06:00] VITALS: BP 112/55; PULSE 81; RESP 16; TEMP 36.1; O2SAT 99
--- NOTE | 2024-09-05 06:38 | PM.PNGS ---
Progress Note: A&P Assessment and Plan (1) Right upper quadrant abdominal pain: Code(s): R10.11 - Right upper quadrant pain Status: Acute Assessment and Plan: Much improved. Okay to discharge from my standpoint on low-fat diet. If her symptoms recur, she is welcome to see me either in the office or if necessary, I can see her again in the hospital. (2) Cholelithiasis: Qualifiers: Cholelithiasis location: gallbladder Cholecystitis presence: without cholecystitis Biliary obstruction: without biliary obstruction Qualified Code(s): K80.20 - Calculus of gallbladder without cholecystitis without obstruction Code(s): K80.20 - Calculus of gallbladder without cholecystitis without obstruction Status: Acute Assessment and Plan: No acute cholecystitis. Continue low-fat diet (3) 24 weeks gestation of : Code(s): Z3A.24 - 24 weeks gestation of Status: Acute Subjective Subjective Date/Time Seen: 09/05/24 06:38 Patient reports: pain is less (No recurrence of abdominal pain), tolerating a regular diet and afebrile Review of Systems Review of Systems: All systems reviewed & are unremarkable except as noted in HPI and below (HPI) Exam Const: General: comfortable, awake and tired appearing GI: Inspection: no abdominal wall ecchymosis, non-distended and other (Gravid uterus) GI Palp: Yes Soft to palpation, No Tenderness to palpation present (GI) and No Palpable mass present Objective Data Vital Signs Vital Signs: Vital Signs - 24 hr 09/04/24 08:40 09/04/24 08:41 09/04/24 13:55 Temperature 36.4 C L Pulse Rate 70 66 Respiratory Rate 18 Blood Pressure 116/61 Pulse Oximetry 99 100 Oxygen Delivery Room Air 09/04/24 21:08 09/04/24 21:50 09/05/24 06:00 Temperature 36.3 C L 36.1 C L Pulse Rate 93 81 Respiratory Rate 16 16 Blood Pressure 118/65 112/55 L Pulse Oximetry 100 100 99 Oxygen Delivery Room Air Intake/Output Intake/Output: Intake & Output 09/02/24 09/03/24 09/04/24 09/05/24 23:59 23:59 23:59 23:59 Intake Total 3533.3 200 Output Total 200 Balance 3333.3 200 Meds/Results Medications: Active Medications Generic Name Dose Route Start Last Admin Trade Name Freq PRN Reason Stop Dose Admin Acetaminophen 650 mg 09/04/24 00:22 09/04/24 20:19 Acetaminophen 325 Mg Tablet PO 650 mg Q4H PRN Administration Mild Pain (1-3) or Fever Dextrose 12.5 gm 09/04/24 00:25 Dextrose 50% 25 Gm/50 Ml Syringe IV PUSH PRN PRN Hypoglycemia Protocol Glucagon 1 mg 09/04/24 00:25 Glucagon For Inj 1 Mg Vial IM PRN PRN Hypoglycemia Protocol Glucose 15 gm 09/04/24 00:25 Glucose Oral Gel 15 Gm Of Glucse In 37.5 Gm Tube PO PRN PRN Hypoglycemia Protocol Sodium Chloride 1,000 mls @ 100 mls/hr 09/04/24 00:25 09/04/24 20:20 Normal Saline Iv IV CONT 100 mls/hr .Q10H YARELI Administration Dextrose 1,000 mls @ 100 mls/hr 09/04/24 00:25 Dextrose 5% 1,000 Ml IVPB PRN PRN Hypoglycemia Protocol Radiology Results: ITS Impressions Abdomen Ultrasound 09/04/24 08:56 Impression: Gallbladder sludge with small stones and/or polyps.
--- NOTE | 2024-09-30 07:32 | P.PNOB_ITS ---
OB - Triage/Final Diagnosis Visit Information Comments/Additional reasons for admission: I have assessed the risk for this patient, Agueda Doty, and determined that she would benefit from observation care. Evaluation Laboratory results: Laboratory Tests 09/03/24 09/03/24 23:01 23:56 WBC 10.3 H RBC 3.83 L Hgb 10.1 L Hct 31.9 L MCV 83.3 MCH 26.4 MCHC 31.7 L RDW 13.2 Plt Count 288 MPV 11.5 H Immature Gran % (Auto) 0.3 Neut % (Auto) 74.5 H Lymph % (Auto) 15.[address] [place] % (Auto) 8.6 H Eos % (Auto) 0.6 Baso % (Auto) 0.3 Lymph # (Auto) 1.62 [place] # (Auto) 0.9 H Eos # (Auto) 0.1 Baso # (Auto) 0.0 Abs Immat Gran (auto) 0.03 Absolute Neuts (auto) 7.7 H Absolute Nucleated RBC 0.000 Nucleated RBC % 0.0 PT 13.0 INR 1.0 APTT 23.8 Sodium 136 L Potassium 3.4 Chloride 107 Carbon Dioxide 19 L Anion Gap 10 BUN 4 L Creatinine 0.52 L Estim Creat Clear Calc 134 Estimated GFR > 60 Glucose 90 Calcium 8.6 Total Bilirubin 0.9 AST 62 H ALT 47 H Alkaline Phosphatase 89 Troponin I < 0.012 Total Protein 7.0 Albumin 3.8 Lipase 154 Urine Color Dark yellow Urine Appearance Cloudy H Urine pH 7.5 Ur Specific [place] 1.025 Urine Protein 1+ H Urine Glucose (UA) Negative Urine Ketones 3+ H Ur Blood (Man) Negative Urine Nitrate Negative Urine Bilirubin 1+ H Urine Urobilinogen 1.0 Leukocyte Esterase Rfl Trace H Urine RBC 0-2 Urine WBC 0-5 Ur Squamous Epith Cells Moderate Urine Bacteria 1+ H Urine Casts 0-2 Final Diagnosis (1) Cholelithiasis: Qualifiers: Cholelithiasis location: gallbladder Cholecystitis presence: without cholecystitis Biliary obstruction: without biliary obstruction Qualified Code(s): K80.20 - Calculus of gallbladder without cholecystitis without obstruction Code(s): K80.20 - Calculus of gallbladder without cholecystitis without obstruction Status: Acute
== END 2024-09-05 11:05 | disposition home or self-care (01) ==
LOC: ANHED 09-04 00:33 → ANH2MED 09-04 01:02
PROVIDERS: Admitting Provider Obstetrics & Gynecology; Emergency Provider Physician Assistant; Visit Provider Obstetrics & Gynecology
DX: O99.612 Diseases of the digestive system complicating pregnancy, second trimester (principal); K80.20 Calculus of gallbladder without cholecystitis without obstruction; O26.892 Other specified pregnancy related conditions, second trimester; R74.01 Elevation of levels of liver transaminase levels; Z3A.24 24 weeks gestation of pregnancy
CPT/HCPCS: 36415; 59025; 76705; 80053; 81001; 83690; 84484; 85025; 85610; 85730; 93005; 96361; 96367; 96374; 96375; 99285; A9270; G0378; G0379; J1200; J2270; J2765; J7030

== ENCOUNTER 2024-10-08 10:16 | Outpatient (RCR) | payer OTHER, SELFPAY ==
--- OUTSIDE RECORDS SUMMARY | 2024-10-08 11:42 | XMS_ITS | Clinical Summary ---
Author Organization [facility] Address [address] [facility] [place] [address] Phone Care Team Providers Care Back Sewer Name Role Phone Otoniel Noonan MD Primary Care Provider [phone] Harpreet Burch DPM Unavailable [phone] Allergies No known active allergies Medications [...] of 3 - 19+ 3-dose series) 11/06/2022 SARS-COV-2 Immunization ( - 2023- season) 2023 Influenza Immunization (Se[place] on Ended) 2024 Respiratory Syncytial Virus (RSV) Immunization (Adult) (1 - 1-dose 75+ series) 11/06/2078 Meningococcal Immunization (ACWY) Aged Out No longer eligible based on patient's age to complete this topic Pneumococcal Immunization Combined Aged Out No longer eligible based on patient's age to complete this topic Rotavirus Immunization Aged Out No lo nger eligible based on patient's age to complete this topic Insurance MEDICAID [employer] MEDICAID [employer] Care Teams Back Sewer Relationship Specialty Start Date End Date Otoniel Noonan MD [address] [place] [address] PCP - General Pediatrics 10/19/16 Harpreet Burch DPM [facility] [place] [address] Consulting Physician Podiatry 10/19/16
--- OUTSIDE RECORDS SUMMARY | 2024-10-08 11:42 | XMS_ITS | Continuity of Care Document ---
Author Organization [facility] [place] Address [address] [place] [address] Assessment Encounter Date Assessment Date Assessment LastModified by Organization Details LastModified Time 10/08/2024 10/08/2024 Patient is _28__weeks . Discussed plan. Not available 10/08/2024 10:34:25 Plan of Treatment Reminders Order Date Submit Date Provider Last Modified By Organization Details Last Modified Time Details Appointments OB ROUTINE 2024 09:15A M Tonja Mayer CNM Not available Not available Not available OB ROUTINE 2024 09:00A M JEREMI LIM MD Not available Not available Not available U/S OB GROWTH 2024 09:00A M ULTRASOUND Not available Not available Not available OB ROUTINE 2024 09:45A M Tonja Mayer CNM Not available Not available Not available Lab None recorde d. Referral None recorde d. Procedures None recorde d. Surgeries None recorde d. Imaging None recorde d. Medication Orders None recorde d. Patient TargetsNo targets recorded. Patient InstructionsNo instructions recorded. Reason for Referral None Reported. Results Created Date Observation Date Name Description Value Unit Range Abnormal Flag Note LastModifiedBy Organization Detail LastModifiedTime 08/13/1908/12/2024 US, obste tric, 2nd or 3rd trime ster No observ ation record ed. [email or web address] [place] [address], [place], [address], 08/12/2024 14:44:06 08/13/19 25 08/12/2024 US, obste tric, 2nd or 3rd trime ster No observ ation record ed. [email or web address], [place], [address], 08/14/2024 11:02:10 09/05/19 25 09/04/2024 US, robyn yates r No observ ation record ed. [email or web address] [place] [id number] [facility] [address], [place], [address], 09/08/2024 14:32:13 Result Notes None recorded. Problems Name Problem SNOMED Code Status Onset Date Resolution Date Notes Provider Name and Address Organization Details Recorded Time 33828433 Active 2024 Urmila spaulding, [facility] 5 12:16:04 Placenta circumval roberto 3123274 Active 2024 32 wk growth Tianna spaulding [facility] 5 22:55:48 Gallstone 245041502 Active [address] lipscomb office number to schedule post delivery Tonja Mayer CNM [address], [place], [address], [facility] 5 13:27:29 Gallstone 917124969 Active [address] lipscomb office number to schedule post delivery Tonja Mayer CNM [address], [place], [address], [facility] 5 13:27:29 Problem Notes None recorded. Procedures Surgical History Date Name Laterality Status Provider Name and Address Organization Details Recorded Time 4 extraction of wisdom tooth completed Bhavya Pal [facility] 08/17/2024 10:09:10 9 tonsilectomy/a denoids completed Sophie Abrams [facility] 11/28/2023 14:06:37 Imaging Results None recorded. Procedure Notes None recorded. Medical Equipment None [...] lable Not Available Vitals Date Recorded Body weight Body mass index (BMI) [Percentile] Per age and sex Body mass index (BMI) Body height Systolic blood pressure Diastolic blood pressure Provider Name and Address Organization Details Last Updated DateTime 5 90212.2 9527 g 95 % 32.3 kg/m2 154.94 cm 126 mm[Hg] 82 mm[Hg] Bhavya Pal [facility] 10:12:39 Social History Question Answer Notes LastModified by Organizat ion Details LastModified Time Tobacco Smoking Status Former Smoker Bhavya Pal [facility] 08/17/2024 10:08:39 If You Are , What Was Your Level Of Alcohol Consumption Prior To ? None [email or web address] Information not available 08/17/2024 Are You Blind [...] Or The Highest Degree You Have Received? [id number] Information not available 11/28/2023 Are There Any Guns Present In Your Home? No Information not available 11/28/2023 Do You Use Protection During Sex? No Information not available 11/28/2023 Do You Use Your Seat Belt Or Car Seat Routinely? Yes Information not available 11/28/2023 Are You Sexually Active? Yes [email or web address] Information not available 05/21/2024 Do You Have Smoke And Carbon Monoxide Detectors In Your Home? No Information not available 11/28/2023 How Much Tobacco Do You Smoke? No Information not available 11/28/2023 Do You Use Sunscreen Routinely? Yes Information not available 11/28/2023 Have You Used IV Drugs? No Information not available 11/28/2023 Do You Have Difficulty Walking Or Climbing Stairs? No [email or web address] Information not available 08/17/2024 Sex: Unknown Functional Status Question Answer Note LastModified by Organizat ion Details LastModified Time Do you use any illicit or recreational drugs? No Information not available 11/28/2023 Do you or have you ever used any other forms of tobacco or nicotine? No [email or web address] Information not available 08/17/2024 What is your level of alcohol consumption? None Information not available 11/28/2023 Are you able to walk? [email or web address] Information not available 11/28/2023 Are you able to care for yourself? Yes [email or web address] Information n ot available 05/21/2024 Do you have difficulty dressing or bathing? No [email or web address] Information not available 08/17/2024 What is your exercise level? Occasional Information not available 11/28/2023 Mental Status Question Answer Note LastModified by Organization D etails LastModified Time Do you feel stressed (tense, restless, nervous, or anxious, or unable to sleep at night)? [id number] Information not available 11/28/2023 Family History Relationship Description Onset Age of this Age Resolved Age Notes LastModified by Organization Details LastModified Time Maternal Grandfather Heart disease [email or web address] Not available 2023 14:06:18 Maternal Grandfather Diabetes mellitus [email or web address] Not available 2023 14:06:18 Medical History Condition Response Allergies (Food, seasonal, environmental ) N Other N Drug/Latex Allergies/Reactions N Blood Transfusion N Breast Cancer N Dermatologic Disorders N Lung Disease N Defects or Inherited Disease N Breast Problem N Gestational Diabetes N Hematologic disorders N Anesthesia Complications N History of STI N Deep Vein Thrombosis N Polycystic ovary syndrome N Anxiety Disorder N Autoimmune disease N Arthritis N Polyps N Infertility N Acid Reflux (GERD) N History of abnormal pap N Cancer N Varicosities N Stroke N Neurologic/Epilepsy N Endometriosis N High Cholesterol N Fibromyalgia N Headaches N Kidney Disease N Heart Problems N Thyroid Problems N Kidney or Bladder Problems N GI Problems N Eating Disorder N Anemia N Art (IVF or FET) N Psychiatric Illness N Ovarian Cancer N Diabetes N Pulmonary (TB, Asthma) N Hepatitis/Liver Disease Y No Past Medical History Y Eczema N Urinary Tract Infection N Abuse/Domestic Violence N Asthma N Trauma/Violence N Depression/ depression N Heart Disease N Pre-Eclampsia N Hypertension N Osteoporosis N Thrombophilias N Gynecological History Statement/Question Response Flow Moderate Date [...] SNOMED-CT Code Diagnosis ICD10 Code Diagnosis Note [id number] [facility] [address] [address] 09/10/2024 12:46:34 09/10/2024 13:33:22 Gestation period, 24 weeks 902627330 Z3A.24 cont pnv [id number] [facility] [address] [address] 10/08/2024 10:03:38 10/08/2024 10:41:33 Gestation period, 28 weeks 85749063 Z3A.28 cont pnv Health Concerns Section Related Observation LastModified by Organization Detai ls LastModified Time None Recorded Concern Status LastModified by Organization Details LastModified Time None Recorded Payers Encounter Date Sequence Insurance Name Policy Number Policy Lara Covered Member ID Lara Member ID Guarantor Name 10/08/2024 1 [facility] (MEDICAID HMO) [id number] Agueda Doty [id number] Agueda Doty OBGyn Episode Ob Episode Information Episode Created Date Number of Fetuses Patient Bloodtype Patient rh Status Prepregnancy Weight lbs Domestic Partner Domestic Partner Phone Father Name Riprap Placer Status 06/18/19 25 1 A Negative 168 Greg OPEN Fetus Data First Name Last Name Admitted to NICU Weight (g) Sex Living Outcome Pediatric Complications Fetus ID Race Codes Race Delivery Type [id number] Problems Problem Notes Problem Name Start Date End Date Resolution Snomed Code Not e Placenta circumvallata 08/13/2024 596550 0 32 wk growth us Gallstone 09/10/[id number] giordano office number to schedule post delivery Stu Calculation Initial Stu Date Initial Exam Date Initial Exam Provider Initial Ultrasound Date Last Menstrual Period Date Ultra Sound Weeks Gestation 12/27/2024 05/20/2024 [email or web address] 05/20/2024 03/12/2024 8 Eighteen To Twenty Week Stu Update Ultra Sound Date Fundal Height At Umbil Quickening Date Ultra Sound Latest Weeks Gestation Final Stu Confirmed By Final Stu Confirmed Date Final Stu Date Ultra Sound Latest Days Gestation 0 [email or web address] 06/19/2024 12/28/19 25 0 Pre- Flowsheet Flowsheet Date 06/18/2024 Cuellar Score Blood Edema Fundus Height Fundus Units Glucose Ketones Leukocytes Nitrite Labor Signs Protein Cervic Dilation Cervic Effacement Cervic Station Type Weight in lbs Pre/Post Dialysis Refused Weight 167.168714988353 BP Diastolic BP Location Tested BP Systolic BP Type 68 L arm 144 sitting Fetus Heart Rate Present A Present Fetus Movement Comments Patient presents to [facility]. Hx of miscarriage in previous , [...] Weight in lbs Pre/Post Dialysis Refused Weight 166.783338321696 BP Diastolic BP Location Tested BP Systolic [...] Type Weight in lbs Pre/Post Dialysis Refused 168.521296475508 BP Diastolic BP Location Tested BP Systolic BP Type 83 125 Fetus Heart Rate Present Fetus Movement A Yes Comments Patient is having some BH co ntraction. 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 discussed low fat diet precautions and education. +FM, 28 weeks gct Flowsheet Date 10/08/2024 Cuellar Score Blood Edema Fundus Height Fundus Units Glucose Ketones Leukocytes Nitrite Labor Signs Protein Cervic Dilation Cervic Effacement Cervic Station neg none Type Weight in lbs Pre/Post Dialysis Refused 171.863783723420 BP Diastolic BP Location Tested BP Systolic BP Type 82 126 Fetus Heart Rate Present Fetus Movement A Yes Comments Patient states that is havin g some gallstone pain off and on. watching diet, +FM, baby shower last week order for rhogam and gct given Menstrual History Last Menstrual Date Menses Monthly [...]
--- OUTSIDE RECORDS SUMMARY | 2024-10-08 11:43 | XMS_ITS | Data Portability ---
Author Organization [facility] [place] Address [address] [place] [place] [address] Assessment Encounter Date Assessment Date Assessment LastModified by Organization Details LastModified Time 08/12/2024 08/12/2024 Patient is __20 _weeks . Discussed plan. [email or web address] Not available 08/12/2024 12:30:38 09/10/2024 09/10/2024 Patient is 24___weeks . Discussed plan. [email or web address] Not available 09/10/2024 12:57:13 10/08/2024 10/08/2024 Patient is _28__weeks . Discussed plan. Not available 10/08/2024 10:34:25 Plan of Treatment Reminders Order Date Submit Date Provider Last Modified By Organization Details Last Modified Time Details Appointments OB ROUTINE 2024 09:15A M Tonja Mayer CNM Not available Not available Not available OB ROUTINE 2024 09:00A Jasmine LIM MD Not available Not available Not available U/S OB GROWTH 2024 09:00A M ULTRASOUND Not available Not available Not available OB ROUTINE 2024 09:45A M Tonja Mayer CNM Not available Not available Not available Lab None recorde d. Referral None recorde d. Procedures None recorde d. Surgeries None recorde d. Imaging US, obstetr ic, 2nd or 3rd trimest er 2024 025 [email or web address] [place], [address], [address], [place], [address], 08/12/2024 22:17:18 Medication Orders None recorde d. Patient TargetsNo targets recorded. Patient InstructionsNo instructions recorded. Reason for Referral None Reported. Results Created Date Observation Date Name Description Value Unit Range Abnormal Flag Note LastModifiedBy Organization Detail LastModifiedTime 06/18/1906/18/2024 CULTU RE: URINE result report SEE RESULT S BELOW Test: Cultu re: Urine Speci men Sourc e: Urine - Clean Catch Speci men Type: Urine Speci men Date: 2024 1502 Resul t Date: 2024 0702 Resul t Statu s: Final resul t Abnor mal: No Resul ting Lab: [facility] [address] [facility] [address] Tel: CULTU RE ----- ----- ----- --- Cultu re resul t (>=3 organ isms prese nt) indic ates possi ble conta minat ion. Repea t cultu re if sympt oms indic ate. Not Available [facility] (Lab) [address] [facility], [place], [address], 06/20/2024 08:08:05 06/18/19 25 06/18/2024 drug scree n, urine Amphetamines : negati ve Not Available [place] [address], [place], [address], 06/18/2024 15:05:47 06/18/19 25 06/18/2024 drug scree n, urine Cannabinoids : positi ve Not Available [place] [address], [place], [address], 06/18/2024 15:05:47 06/18/19 25 06/18/2024 drug scree n, urine Cocaine: negati ve Not Available [place] [address], [place], [address], 06/18/2024 15:05:47 06/18/19 25 06/18/2024 drug scree n, urine Opiates: negati ve Not Available [place] [address], [place], [address], 06/18/2024 15:05:47 06/18/19 25 06/18/2024 drug scree n, urine Phenocyclidi ne: negati ve Not Available [place] [address], [place], [address], 06/18/2024 15:05:47 06/18/19 25 06/18/2024 drug scree n, urine Barbiturates : negati ve Not Available [place] [address], [place], [address], 06/18/2024 15:05:47 06/18/19 25 06/18/2024 drug scree n, urine Benzodiazepi francisco javier: negati ve Not Available [place] [address], [place], [address], 06/18/2024 15:05:47 06/18/19 25 06/18/2024 drug scree n, urine Ethanol: negati ve Not Available [place] [address], [place], [address], 06/18/2024 15:05:47 06/18/19 25 06/18/2024 drug scree n, urine Hallucinogen s: negati ve Not Available [place] [address], [place], [address], 06/18/2024 15:05:47 06/18/19 25 06/18/2024 drug scree n, urine Inhalants: negati ve Not Available [place] [address], [place], [address], 06/18/2024 15:05:47 06/18/19 25 06/18/2024 drug scree n, urine Anabolic Steroids: negati ve Not Available [place] [address], [place], [address], 06/18/2024 15:05:47 08/13/19 25 08/12/2024 US, obste tric, 2nd or 3rd trime ster No observ ation record ed. [email or web address] [place] [address], [place], [address], 08/12/2024 14:44:06 08/13/19 25 08/12/2024 US, obste tric, 2nd or 3rd trime ster No observ ation record ed. [email or web address] [address], [place], [address], 08/14/2024 11:02:10 09/05/19 25 09/04/2024 US, gallb ladde r No observ ation record ed. [email or web address] [facility] [address], [place], [address], 09/08/2024 14:32:13 Result Notes None recorded. Problems Name Problem SNOMED Code Status Onset Date Resolution Date Notes Provider Name and Address Organization Details Recorded Time 55445637 Active 2024 Urmila spaulding, [facility] 12:16:04 Placenta circumval roberto 5094568 Active 2024 32 wk growth Tianna spaulding [facility] 22:55:48 Gallstone 526644356 Active [address] lipscomb office number to schedule post delivery Tonja Mayer CNM [address], [place], [address], [facility] 13:27:29 Gallstone 938984542 Active [address] lipscomb office number to schedule post delivery Tonja Mayer CNM [address], [place], [address], [facility] 05/21/202 5 13:27:29 Problem Notes None recorded. Procedures Surgical History Date Name Laterality Status Provider Name and Address Organization Details Recorded Time 4 extraction of wisdom tooth completed Bhavya Pal [facility] 08/17/2024 10:09:10 9 tonsilectomy/a denoids completed Sophie Abrams [facility] 11/28/2023 14:06:37 Imaging Results None recorded. [...] 5 154.94 cm 31.4 kg/m2 94 % 06762.3 3 g 130 mm[Hg] 78 mm[Hg] ROMAINE aBires [facility] 5 10:21:59 Date Recorded Body weight Body mass index (BMI) [Percentile] Per age and sex Body mass index (BMI) Body height Systolic blood pressure Diastolic blood pressure Provider Name and Address Organization Details Last Updated DateTime 5 78543.5 1816 g 94 % 31.7 kg/m2 154.94 cm 125 mm[Hg] 83 mm[Hg] Bhavya Pal [facility] 5 12:22:12 Date Recorded Body height Body mass index (BMI) [Percentile] Per age and sex Body mass index (BMI) Body weight Systolic blood pressure Diastolic blood pressure Provider Name and Address Organization Details Last Updated DateTime 5 154.94 cm 94 % 31.6 kg/m2 78007.9 3 g 121 mm[Hg] 78 mm[Hg] Bhavya Pal [facility] 5 12:56:59 Date Recorded Body weight Body mass index (BMI) [Percentile] Per age and sex Body mass index (BMI) Body height Systolic blood pressure Diastolic blood pressure Provider Name and Address Organization Details Last Updated DateTime 5 64039.2 9527 g 95 % 32.3 kg/m2 154.94 cm 126 mm[Hg] 82 mm[Hg] Bhavya Pal [facility] 5 10:12:39 Social History Question Answer Notes LastModified by Organizat ion Details LastModified Time Tobacco Smoking Status Former Smoker Bhavya Pal [facility] 08/17/2024 10:08:39 If You Are , What Was Your Level Of Alcohol Consumption Prior To ? None [email or web address] Information not available 08/17/2024 Are You Blind [...] Or The Highest Degree You Have Received? [id number] Information not available 11/28/2023 Are There Any Guns Present In Your Home? No Information not available 11/28/2023 Do You Use Protection During Sex? No Information not available 11/28/2023 Do You Use Your Seat Belt Or Car Seat Routinely? Yes Information not available 11/28/2023 Are You Sexually Active? Yes [email or web address] Information not available 05/21/2024 Do You Have Smoke And Carbon Monoxide Detectors In Your Home? No Information not available 11/28/2023 How Much Tobacco Do You Smoke? No Information not available 11/28/2023 Do You Use Sunscreen Routinely? Yes Information not available 11/28/2023 Have You Used IV Drugs? No Information not available 11/28/2023 Do You Have Difficulty Walking Or Climbing Stairs? No [email or web address] Information not available 08/17/2024 Sex: Unknown Functional Status Question Answer Note LastModified by Organizat ion Details LastModified Time Do you use any illicit or recreational drugs? No Information not available 11/28/2023 Do you or have you ever used any other forms of tobacco or nicotine? No [email or web address] Information not available 08/17/2024 What is your level of alcohol consumption? None Information not available 11/28/2023 Are you able to walk? [email or web address] Information not available 11/28/2023 Are you able to care for yourself? Yes Information n ot available 05/21/2024 Do you have difficulty dressing or bathing? No [email or web address] Information not available 08/17/2024 What is your exercise level? Occasional Information not available 11/28/2023 Mental Status Question Answer Note LastModified by Organization D etails LastModified Time Do you feel stressed (tense, restless, nervous, or anxious, or unable to sleep at night)? [id number] Information not available 11/28/2023 Family History Relationship Description Onset Age of this Age Resolved Age Notes LastModified by Organization Details LastModified Time Maternal Grandfather Heart disease [email or web address] Not available 2023 14:06:18 Maternal Grandfather Diabetes mellitus [email or web address] Not available 2023 14:06:18 Medical History Condition Response Allergies (Food, seasonal, environmental ) N Other N Breast Cancer N Drug/Latex Allergies/Reactions N Blood Transfusion N Dermatologic Disorders N Lung Disease N Defects or Inherited Disease N Breast Problem N Gestational Diabetes N Hematologic disorders N Anesthesia Complications N History of STI N Deep Vein Thrombosis N Polycystic ovary syndrome N Anxiety Disorder N Autoimmune disease N Arthritis N Infertility N Polyps N Acid Reflux (GERD) N History of abnormal pap N Cancer N Stroke N Varicosities N Neurologic/Epilepsy N Endometriosis N High Cholesterol N Headaches N Fibromyalgia N Kidney Disease N Heart Problems N Kidney or Bladder Problems N Thyroid Problems N GI Problems N Eating Disorder [...] SNOMED-CT Code Diagnosis ICD10 Code Diagnosis Note JEREMI LIM MD [place] [address],[place] [address] 11/28/2023 14:01:20 11/28/2023 15:08:05 Nausea and vomiting 98134610 R11.2 - morning sickness 2/2 early - improved s/p zofran and IV fluids in ER yesterday- able to tolerate PO intake today- discussed warning signs- will send refill of zofran to use PRN [id number] Milton Bustamante MD [place] [address],[place] [address] 12/03/2023 15:14:49 12/03/2023 16:20:52 Threatened miscarriage 34569605 O20.0 Z3A.01 [id number] Milton Bustamante MD [place] [address],[place] [address] 12/11/2023 10:01:42 12/11/2023 10:25:41 Threatened miscarriage 75286885 O20.0 Z3A.01 [id number] JEREMI LIM MD [place] [address],[place] [address] 12/18/2023 11:01:18 12/18/2023 12:03:28 [id number] JEREMI LIM MD [place] [address],[place] [address] 12/21/2023 11:54:32 12/21/2023 12:49:37 test positive 641421549 Z32.01 1. Exam today within normal limits.2. [...] screening: desires . Candidiasis of vagina 72 493478 B37.31 - swab sent today- Diflucan sent [id number] Milton Bustamante MD [place] [address],[place] [address] 01/22/2024 15:57:08 01/22/2024 16:26:02 Missed miscarriage 99359578 O02.1 Z3A.00 [id number] JEREMI LIM MD [place] [address],[place] [address] 01/22/2024 16:22:27 01/22/2024 17:09:02 Miscarriage in first trimester 93086001 O03.9 - spontaneou s cramping and heavy [...] to clinic if bleeding or pain worsens [id number] Milton Bustamante MD [place] [address],[place] [address] 05/05/2024 12:00:54 05/05/2024 12:27:43 Uterine size for dates discrepancy 829043410 O26.849 Z3A.01 [id number] Milton Bustamante MD [place] [address],[place] [address] 05/20/2024 17:20:11 05/20/2024 18:04:09 [id number] JEREMI LIM MD [place] [address],[place] [address] 05/21/2024 11:41:39 05/21/2024 14:20:13 test positive 309072758 Z32.01 1. Exam today within normal limits.2. [...] desires at 10 weeks, papers given today. [id number] Milton Bustamante MD [place] [address],[place] [address] 06/11/2024 17:26:18 06/12/2024 08:11:28 screening 799052625 Z36.82 Z3A.11 [id number] JEREMI LIM MD [place] [address],[place] [address] 06/18/2024 11:38:16 06/19/2024 05:42:16 Gestation period, 12 weeks 84614568 Z3A.12 Routine an tenatal care 991685682 Z34.91 [id number] JEREMI LIM MD [place] [address],[place] [address] 07/16/2024 10:16:50 07/16/2024 11:13:27 Intermittent palpitations 463337733 R00.2 - with MSK chest pain, 3 episodes during - will order Holter monitoring (at least 7-14 days) if episode recurs Gestation period, 16 weeks 87314806 Z3A.16 [id number] Milton Bustamante MD [place] [address],[place] [address] 08/12/2024 10:57:55 08/12/2024 12:11:22 Screening status 113422508 Z36.3 Z3A.20 [id number] Tonja Mayer CNM [place] [address] [place] [address] 08/12/2024 10:58:10 08/12/2024 12:32:59 Gestation period, 20 weeks 36252131 Z3A.20 continue vitamin [id number] Tonja Mayer CNM [place] [address] [place] [address] 09/10/2024 12:46:34 09/10/2024 13:33:22 Gestation period, 24 weeks 539109526 Z3A.24 cont pnv [id number] Tonja Mayer CNM [place] [address],[place] [address] 10/08/2024 10:03:38 10/08/2024 10:41:33 Gestation period, 28 weeks 58962578 Z3A.28 cont pnv Health Concerns Section Related Observation LastModified by Organization Detai ls LastModified Time None Recorded Concern Status LastModified by Organization Details LastModified Time None Recorded Advance Directives Directive None Recorded Payers Insurance Date Sequence Insurance Name Policy Number Policy Lara Covered Member ID Lara Member ID Guarantor Name 10/05/2024 1 [facility] (MEDICAID HMO) [id number] Agueda Doty [id number] Agueda Doty OBGyn Episode Ob Episode Information Episode Created Date Number of Fetuses Patient Bloodtype Patient rh Status Prepregnancy Weight lbs Domestic Partner Domestic Partner Phone Father Name Vice President [employer] Sales Status 05/21/19 25 1 CLOSED Fetus Data First Name Last Name Admitted to NICU Weight (g) Sex Living Outcome Pediatric Complications Fetus ID Race Codes Race Delivery Type , Spontane ous [id number] Stu Calculation Initial Stu Date Initial Exam [...] Domestic Partner Domestic Partner Phone Father Name Vice President [employer] Sales Status 06/18/19 25 1 A Negative 168 Greg OPEN Fetus Data First Name Last Name Admitted to NICU Weight (g) Sex Living Outcome Pediatric Complications Fetus ID Race Codes Race Delivery Type [id number] Problems Problem Notes Problem Name Start Date End Date Resolution Snomed Code Not e Placenta circumvallata 08/13/2024 367021 0 32 wk growth us Gallstone 09/10/[id number] giordano office number to schedule post delivery Stu Calculation Initial Stu Date Initial Exam Date Initial Exam Provider Initial Ultrasound Date Last Menstrual Period Date Ultra Sound Weeks Gestation 12/27/2024 05/20/2024 [email or web address] 05/20/2024 03/12/2024 8 Eighteen To Twenty Week Stu Update Ultra Sound Date Fundal Height At Umbil Quickening Date Ultra Sound Latest Weeks Gestation Final Stu Confirmed By Final Stu Confirmed Date Final Stu Date Ultra Sound Latest Days Gestation 0 [email or web address] 06/19/2024 12/28/19 25 0 Pre- Flowsheet Flowsheet Date 06/18/2024 Cuellar Score Blood Edema Fundus Height Fundus Units Glucose Ketones Leukocytes Nitrite Labor Signs Protein Cervic Dilation Cervic Effacement Cervic Station Type Weight in lbs Pre/Post Dialysis Refused Weight 167.417695112232 BP Diastolic BP Location Tested BP Systolic BP Type 68 L arm 144 sitting Fetus Heart Rate Present A Present Fetus Movement Comments Patient presents to [facility] care. Hx of miscarriage in previous , [...] Weight in lbs Pre/Post Dialysis Refused Weight 166.871562688356 BP Diastolic BP Location Tested BP Systolic [...] Type Weight in lbs Pre/Post Dialysis Refused 168.344881841584 BP Diastolic BP Location Tested BP Systolic BP Type 83 125 Fetus Heart Rate Present Fetus Movement A Yes Comments Patient is having some BH co ntraction. 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
--- OUTSIDE RECORDS SUMMARY | 2024-10-08 11:43 | XMS_ITS | Clinical Summary ---
Author Organization [facility] Address [address] [address] Care Team Providers Care Territory Account Executive Name Role Phone Unavailable Primary Care Provider Unavailabl e Source Comments [facility],non-owned Affiliates and Associated Physician Practices is amultiple site organization consisting of ambulatory clinics and hospital sitesin [place], [place], [place] and [place]. This disclosure is being madepursuant to the Care Everywhere program and may not contain all information available regarding this patient. Last updated 18.[facility] [employer] Allergies No known active allergies Medications * [...] on file Legal Sex Female 6:45 AM [employer] Gender Identity Not on file Sexual Orientation [...] patient's age to complete this topic Insurance [facility] [address]
[2024-10-09] MEDS: RHO(D) IMMUNE GLOBULIN 300 MCG/2 ML SYRINGE IM (15:38)
== END 2025-01-06 23:59 | disposition home or self-care (01) ==
LOC: ANHLAB 10:16
PROVIDERS: Visit Provider Advanced Practice Midwife
DX: Z29.13 Encounter for prophylactic Rho(D) immune globulin (principal); O36.0190 Maternal care for anti-D [Rh] antibodies, unspecified trimester, not applicable or unspecified; Z3A.00 Weeks of gestation of pregnancy not specified
CPT/HCPCS: 36415; 85461; 86850; 86900; 86901; 90384; 96372; J2790

== ENCOUNTER 2024-12-25 09:44 | Inpatient (IN) | payer OTHER, SELFPAY ==
[2024-12-25] VITALS (228 sets, daily range): BP systolic 95–145; BP diastolic 42–114; PULSE 54–118; RESP 18; TEMP 36.6–37.2; O2SAT 96–100; BMI 34.9
--- OUTSIDE RECORDS SUMMARY | 2024-12-25 12:00 | XMS_ITS | Clinical Summary ---
Author Organization [facility] Address [address] [place] [address] Care Team Providers Care Box Stamper Name Role Phone Unavailable Primary Care Provider Unavailabl e Source Comments [facility],non-owned Affiliates and Associated Physician Practices is amultiple site organization consisting of ambulatory clinics and hospital sitesin [place], [place], [place] and [place]. This disclosure is being madepursuant to the Care Everywhere program and may not contain all information available regarding this patient. 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 Gender Identity Not on file Sexual Orientation [...] of 3 - 19+ 3-dose series) 11/06/2022 DEPRESSION SCREENING 04/23/2024 PAP SMEAR 11/06/2024 COVID-19 VACCINE (1 - 2023-2 5 season) 2024 INFLUENZA VACCINE (#1) 2024 ZOSTER VACCINE (1 of 2) 11/06/2053 HIB VACCINE Aged Out No longer eligi ble based on patient's age to complete this topic MENINGOCOCCAL GROUPS A/C/Y/W VACCINE Aged Out No longer eligible b ased on patient's age to complete this topic PNEUMOCOCCAL VACCINE Aged Out No long er eligible based on patient's age to complete this topic Insurance [facility] [place] [address]
--- OUTSIDE RECORDS SUMMARY | 2024-12-25 12:00 | XMS_ITS | Clinical Summary ---
Author Organization [facility] Address [address] [facility] [place] [address] Phone Care Team Providers Care Protective Services Officer Name Role Phone Otoniel Noonan MD Primary Care Provider [phone] Harpreet Burch DPM Unavailable [phone] Allergies No known active allergies Medications [...] 19+ 3-dose series) 11/06/2022 Influenza Immunization (#1) 2024 SARS-COV-2 Immunization (1 - season) 2024 Respiratory Syncytial Virus (RSV) Immunization (Adult) (1 - 1-dose 75+ series) 11/06/2078 Meningococcal Immunization (ACWY) Aged Out No longer eligible based on patient's age to complete this topic Pneumococcal Immunization Combined Aged Out No longer eligible based on patient's age to complete this topic Rotavirus Immunization Aged Out No lo nger eligible based on patient's age to complete this topic Insurance MEDICAID [facility] [employer] [facility] MEDICAID [facility] [employer] Care Teams Protective Services Officer Relationship Specialty Start Date End Date Otoniel Noonan MD [address] [place] [address] PCP - General Pediatrics 10/19/16 Harpreet Burch DPM [address] [place] [address] Consulting Physician Podiatry 10/19/16
[2024-12-25 12:09] LABS: Hematocrit 37.4 % (37.0-47.0); Hemoglobin 11.7 g/dL (12.0-15.0); Immature Granulocyte Percent A 0.5 % (0-0.5); Lymphocytes Absolute Auto 1.23 K/mm3 (0.9-3.2); Mean Corpuscular HGB Conc 31.3 g/dl (32-36); Mean Corpuscular Hemoglobin 25.9 pg (26-34); Mean Corpuscular Volume 82.7 fl (80-100); Nucleated Red Blood Cells Absolute Auto 0.000 K/mm3 (0.0-0.012); Nucleated Red Blood Cells Perc 0.0 % (0.0-0.2); Platelet Count Result 227 k/mm3 (150-375); Red Blood Count 4.52 M/mm3 (4.2-5.4); White Blood Count 9.3 K/mm3 (4.5-10.0)
--- NOTE | 2024-12-25 12:12 | LDADM ---
This patient, Agueda Doty, was admitted to Labor/Delivery/Recovery 105 on 12/25/24 at 09:44. Plans for labor, pain management and were discussed with patient. Patient/family oriented to hospital policies and general routines including ID bracelet, bed and alarms, visiting hours, pain management, procedures, bathroom and other care routines, personal items, smoking policy, room service/diet and guest tray routines, infant security routines, and visiting hours. Patient/Family are encouraged to report perceived risks to care and to ask questions if they do not understand what they are told or what they should do. See OBIX for further documentation.
[2024-12-25] MEDS: LACTATED RINGERS 1,000 ML 125 ML IV CONT ×2 (12:24→16:17)
[2024-12-25] MEDS: AMPICILLIN SODIUM 2 GM in SODIUM CHLORIDE 0.9% IV 100 ML 200 ML IVPB (12:25)
[2024-12-25 12:31] LABS: Alanine Aminotransferase 15 U/L (6-35); Albumin Level 3.6 g/dL (3.5-5.1); Alkaline Phosphatase 207 U/L (38-126); Anion Gap 8 mmol/L (4-12); Aspartate Amino Transferase 23 U/L (14-36); Bilirubin,Total 0.5 mg/dL (0.2-1.3); Blood Urea Nitrogen 10 mg/dL (7-17); Calcium 9.3 mg/dL (8.4-10.2); Carbon Dioxide 18 mmol/L (22-30); Chloride 106 mmol/L (98-107); Estimated CRCL calculation 128 ml/min; Estimated Glomerular Filt Rate > 60; Glucose 95 mg/dL (65-110); Potassium 4.1 mmol/L (3.4-5.0); Sodium 132 mmol/L (137-145); Total Protein 6.5 g/dL (6.3-8.2)
[2024-12-25 13:07] LABS: Syphilis IgG/IgM Antibody Non-Reactive (Nonreactive)
--- NOTE | 2024-12-25 13:09 | WPDOBADMIT ---
Obstetrics - Admit Note Admission Note: record reviewed. No pertinent additions to the history and/or any subsequent changes in the physical findings that are not consistent with the expected course of the were found. Additions to the history and/or subsequent changes in the physical findings follow. Admit in labor, AROM small amount of meconium fluid, SVE /-2 anticipate vaginal delivery
--- NOTE | 2024-12-25 13:44 | WPDANESEPPF ---
Anes - Initial Pre Proc Eval Procedure: Labor Epidural Date/Time: 12/25/24 13:44 Surgeon: Milton Bustamante MD Pre Op Diagnosis: labor pain Pre Op Diagnosis: Contractions Patient Data Age: 19 Gender: F Height: 1.55 m Weight: 84 kg Last Vital Signs Pulse 88 12/25/24 13:30 BP 138/73 12/25/24 13:30 Pulse Ox 99 12/25/24 13:39 O2 Del Method Room Air 12/25/24 12:30 Allergies Allergy/AdvReac Type Severity Reaction Status Date / Time No Known Allergies Allergy Verified 12/25/24 12:08 Home Medications ?Medication ?Instructions ?Recorded ?Confirmed ?Type calcium carbonate (Tums) 200 mg PO QID PRN dyspepsia 09/04/24 12/25/24 History vitamins no.144-folic 1 tablet PO DAILY 09/04/24 12/01/24 History acid 400 mcg chewable tablet () Laboratory Tests 12/25/24 12:03 WBC 9.3 K/mm3 (4.5-10.0) RBC 4.52 M/mm3 (4.2-5.4) Hgb 11.7 L g/dL (12.0-15.0) Hct 37.4 % (37.0-47.0) MCV 82.7 fl (80-100) MCH 25.9 L pg (26-34) MCHC 31.3 L g/dl (32-36) RDW 20.4 H % (11.5-14.5) Plt Count 227 k/mm3 (150-375) MPV 12.4 H fl (7.4-10.4) Immature Gran % (Auto) 0.5 % (0-0.5) Neut % (Auto) 78.8 H % (45.5-73.1) Lymph % (Auto) 13.2 L % (18.3-44.2) [place] % (Auto) 6.9 % (2.6-8.5) Eos % (Auto) 0.3 % (0-4.4) Baso % (Auto) 0.3 % (0.2-1.2) Lymph # (Auto) 1.23 K/mm3 (0.9-3.2) [place] # (Auto) 0.6 K/mm3 (0.1-0.6) Eos # (Auto) 0.0 K/mm3 (0-0.3) Baso # (Auto) 0.0 K/mm3 (0.0-0.1) Abs Immat Gran (auto) 0.05 H K/mm3 (0.00-0.031) Absolute Neuts (auto) 7.3 H K/mm3 (1.3-6.7) Absolute Nucleated RBC 0.000 K/mm3 (0.0-0.012) Nucleated RBC % 0.0 % (0.0-0.2) Sodium 132 L mmol/L (137-145) Potassium 4.1 mmol/L (3.4-5.0) Chloride 106 mmol/L (98-107) Carbon Dioxide 18 L mmol/L (22-30) Anion Gap 8 mmol/L (4-12) BUN 10 D mg/dL (7-17) Creatinine 0.58 L mg/dL (0.7-1.0) Estim Creat Clear Calc 128 ml/min Estimated GFR > 60 (59 - ) Glucose 95 mg/dL (65-110) Calcium 9.3 mg/dL (8.4-10.2) Total Bilirubin 0.5 mg/dL (0.2-1.3) AST 23 U/L (14-36) ALT 15 U/L (6-35) Alkaline Phosphatase 207 H U/L (38-126) Total Protein 6.5 g/dL (6.3-8.2) Albumin 3.6 g/dL (3.5-5.1) Syphilis IgG/IgM Ab Non-reactive (Nonreactive) Blood Type A Negative Antibody Screen Positive Antibody Identification Pending Antigen Identification Pending ALVARADO, IgG Interpret Pending ALVARADO, Poly Interpret Pending ALVARADO, Complement Interp Pending : gestational age (VALERIY 12/27/24) Patient hx anesthesia problems: none Family hx anesthesia problems: none Results Review: All pre-operative results and documents have been reviewed as part of the pre-operative evaluation. [facility] Family History Family History Grandparent Diabetes mellitus Congestive heart failure Social History Social History Smoking status: Former smoker Smokeless tobacco user: other Second hand tobacco smoke exposure: No Alcohol intake: never Substance use: never Do You Feel Safe in your Home?: Yes Lack of Transportation: No Lack of Food: Never True Current Housing: I Have Housing Concerned About Future Housing: No Difficulty Paying Gas/Electric Bills: No Difficulty Paying for Meds: No Currently Unemployed: No Education: Trade/Vocational Certificate Difficulty w/ Childcare or Family Care: No Spiritual care concerns: No Anes - Eval Final PreProcedure Day of Procedure 12/25/24 13:44 Patient weight: obese Heart: regular rate and rhythm Lungs: normal air movement Airway: Mallampati scale class II Neurological: alert and oriented Last oral intake: 4 hours ASA classification: II Emergent: no Anesthetic plan: proceed Anesthesia type and monitoring: regional epidural and standard monitoring Results Review: All pre-operative results and documents have been reviewed as part of the pre-operative evaluation. Informed Consent: The patient's anesthetic plan and its attendant risks and benefits were discussed with the patient/family/POA. Questions were solicited and answers provided to the satisfaction of the patient/family/POA.
[2024-12-25] MEDS: AMPICILLIN SODIUM 1 GM in SODIUM CHLORIDE 0.9% IV 50 ML 100 ML IVPB ×3 (16:09→23:33)
[2024-12-25] MEDS: OXYTOCIN 30 UNITS/NS 500 ML 30 UNITS/500 ML BAG IV CONT (16:12)
[2024-12-25] MEDS: SODIUM CHLORIDE 0.9% IV 300 ML 600 ML I-UTERINE (16:36)
[2024-12-25] MEDS: ONDANSETRON INJ 4 MG/2 ML VIAL IV PUSH (23:33)
[2024-12-26] VITALS (170 sets, daily range): BP systolic 105–167; BP diastolic 43–97; PULSE 58–201; RESP 14–19; TEMP 36.4–37.2; O2SAT 94–100
[2024-12-26] MEDS: LACTATED RINGERS 1,000 ML 125 ML IV CONT ×3 (00:39→07:40)
[2024-12-26] MEDS: AMPICILLIN SODIUM 1 GM in SODIUM CHLORIDE 0.9% IV 50 ML 100 ML IVPB (04:52)
--- NOTE | 2024-12-26 07:15 | PM.IMHP ---
H&P: HPI History of Present Illness Date/Time: 12/26/24 07:15 Chief Complaint: labor Narrative: Patient is a 19 year old who presented for normal labor. Her has been uncomplicated. Her labor progressed normally and she progressed to complete dilation and began pushing. During pushing, she became extremely uncomfortable. ROP presentation was confirmed by US however patient could not tolerate manual rotation or position change. She requested to proceed with a c section. Risks benefits and alternatives to the procedure were discussed and patient voices understanding Review of Systems Review of Systems: All systems reviewed & are unremarkable except as noted in HPI and below PMFSH Family History Family History Grandparent Diabetes mellitus Congestive heart failure Social History Social History Smoking status: Former smoker Smokeless tobacco user: other Second hand tobacco smoke exposure: No Alcohol intake: never Substance use: never Do You Feel Safe in your Home?: Yes Lack of Transportation: No Lack of Food: Never True Current Housing: I Have Housing Concerned About Future Housing: No Difficulty Paying Gas/Electric Bills: No Difficulty Paying for Meds: No Currently Unemployed: No Education: Trade/Vocational Certificate Difficulty w/ Childcare or Family Care: No Spiritual care concerns: No Meds Home Medications and Allergies Home Medications ?Medication ?Instructions ?Recorded ?Confirmed ?Type calcium carbonate (Tums) 200 mg PO QID PRN dyspepsia 09/04/24 12/25/24 History vitamins no.144-folic 1 tablet PO DAILY 09/04/24 12/01/24 History acid 400 mcg chewable tablet () Allergies Allergy/AdvReac Type Severity Reaction Status Date / Time No Known Allergies Allergy Verified 12/25/24 12:08 Vital Signs Vital Signs - 24 hr 12/25/24 11:20 12/25/24 11:25 12/25/24 11:30 Temperature Pulse Rate Respiratory Rate Blood Pressure Pulse Oximetry 100 98 99 Oxygen Delivery 12/25/24 11:39 12/25/24 11:40 12/25/24 11:44 Temperature Pulse Rate 85 Respiratory Rate Blood Pressure 129/75 Pulse Oximetry 99 99 Oxygen Delivery 12/25/24 11:45 12/25/24 11:49 12/25/24 11:54 Temperature Pulse Rate 73 Respiratory Rate Blood Pressure 118/77 Pulse Oximetry 99 100 Oxygen Delivery 12/25/24 11:59 12/25/24 12:00 12/25/24 12:04 Temperature Pulse Rate 75 Respiratory Rate Blood Pressure 131/89 Pulse Oximetry 100 100 Oxygen Delivery 12/25/24 12:09 12/25/24 12:12 12/25/24 12:14 Temperature Pulse Rate Respiratory Rate Blood Pressure Pulse Oximetry 99 99 Oxygen Delivery Room Air 12/25/24 12:15 12/25/24 12:19 12/25/24 12:23 Temperature 98.1 F Pulse Rate 71 Respiratory Rate Blood Pressure 129/87 Pulse Oximetry 99 99 Oxygen Delivery 12/25/24 12:28 12/25/24 12:30 12/25/24 12:30 Temperature Pulse Rate 80 Respiratory Rate Blood Pressure 134/83 Pulse Oximetry 99 Oxygen Delivery Room Air 12/25/24 12:33 12/25/24 12:38 12/25/24 12:43 Temperature Pulse Rate Respiratory Rate Blood Pressure Pulse Oximetry 100 100 99 Oxygen Delivery 12/25/24 12:45 12/25/24 12:48 12/25/24 12:53 Temperature Pulse Rate 75 Respiratory Rate Blood Pressure 129/79 Pulse Oximetry 100 100 Oxygen Delivery 12/25/24 12:58 12/25/24 13:00 12/25/24 13:04 Temperature Pulse Rate 94 Respiratory Rate Blood Pressure 145/82 H Pulse Oximetry 100 98 Oxygen Delivery 12/25/24 13:09 12/25/24 13:14 12/25/24 13:19 Temperature Pulse Rate Respiratory Rate Blood Pressure Pulse Oximetry 97 97 98 Oxygen Delivery 12/25/24 13:24 12/25/24 13:29 12/25/24 13:30 Temperature Pulse Rate 88 Respiratory Rate Blood Pressure 138/73 Pulse Oximetry 98 98 Oxygen Delivery 12/25/24 13:34 12/25/24 13:37 12/25/24 13:39 Temperature 98.1 F Pulse Rate Respiratory Rate Blood Pressure Pulse Oximetry 98 99 Oxygen Delivery 12/25/24 13:44 12/25/24 13:49 12/25/24 13:54 Temperature Pulse Rate 89 Respiratory Rate Blood Pressure 144/82 H Pulse Oximetry 99 98 98 Oxygen Delivery 12/25/24 13:59 12/25/24 14:04 12/25/24 14:09 Temperature Pulse Rate Respiratory Rate Blood Pressure Pulse Oximetry 98 97 98 Oxygen Delivery 12/25/24 14:14 12/25/24 14:19 12/25/24 14:22 Temperature Pulse Rate 83 Respiratory Rate Blood Pressure 131/81 Pulse Oximetry 98 97 Oxygen Delivery 12/25/24 14:23 12/25/24 14:24 12/25/24 14:27 Temperature Pulse Rate 80 85 Respiratory Rate Blood Pressure 133/73 127/67 Pulse Oximetry 99 Oxygen Delivery 12/25/24 14:28 12/25/24 14:29 12/25/24 14:30 Temperature 98.1 F Pulse Rate 84 72 Respiratory Rate Blood Pressure 119/68 122/69 Pulse Oximetry 96 Oxygen Delivery 12/25/24 14:33 12/25/24 14:34 12/25/24 14:36 Temperature Pulse Rate 78 99 Respiratory Rate Blood Pressure 110/42 L 120/61 Pulse Oximetry 96 Oxygen Delivery 12/25/24 14:37 12/25/24 14:38 12/25/24 14:39 Temperature Pulse Rate 68 96 Respiratory Rate Blood Pressure 128/67 136/67 Pulse Oximetry 96 Oxygen Delivery 12/25/24 14:40 12/25/24 14:42 12/25/24 14:44 Temperature Pulse Rate 83 66 76 Respiratory Rate Blood Pressure 131/72 129/64 129/70 Pulse Oximetry 97 Oxygen Delivery 12/25/24 14:46 12/25/24 14:48 12/25/24 14:49 Temperature Pulse Rate 82 65 Respiratory Rate Blood Pressure 119/91 H 124/71 Pulse Oximetry 98 Oxygen Delivery 12/25/24 14:50 12/25/24 14:53 12/25/24 14:54 Temperature Pulse Rate 89 88 Respiratory Rate Blood Pressure 132/61 126/69 Pulse Oximetry 98 Oxygen Delivery 12/25/24 14:55 12/25/24 14:56 12/25/24 14:58 Temperature Pulse Rate 63 90 67 Respiratory Rate Blood Pressure 117/49 L 128/69 137/76 Pulse Oximetry Oxygen Delivery 12/25/24 14:59 12/25/24 15:00 12/25/24 15:02 Temperature Pulse Rate 67 93 Respiratory Rate Blood Pressure 132/72 134/73 Pulse Oximetry 98 Oxygen Delivery 12/25/24 15:04 12/25/24 15:06 12/25/24 15:08 Temperature Pulse Rate 67 74 93 Respiratory Rate Blood Pressure 127/82 123/56 L 121/86 Pulse Oximetry 98 Oxygen Delivery 12/25/24 15:09 12/25/24 15:10 12/25/24 15:14 Temperature Pulse Rate 93 Respiratory Rate Blood Pressure 108/68 Pulse Oximetry 98 98 Oxygen Delivery 12/25/24 15:15 12/25/24 15:19 12/25/24 15:24 Temperature Pulse Rate 98 Respiratory Rate Blood Pressure 123/66 Pulse Oximetry 98 99 Oxygen Delivery 12/25/24 15:29 12/25/24 15:30 12/25/24 15:34 Temperature 98 F Pulse Rate 73 Respiratory Rate Blood Pressure 132/83 Pulse Oximetry 99 98 Oxygen Delivery 12/25/24 15:39 12/25/24 15:44 12/25/24 15:45 Temperature Pulse Rate 75 Respiratory Rate Blood Pressure 145/114 H Pulse Oximetry 99 100 Oxygen Delivery 12/25/24 15:49 12/25/24 15:54 12/25/24 15:59 Temperature Pulse Rate Respiratory Rate Blood Pressure Pulse Oximetry 100 98 100 Oxygen Delivery 12/25/24 16:00 12/25/24 16:04 12/25/24 16:09 Temperature 98 F Pulse Rate 83 Respiratory Rate Blood Pressure 144/95 H Pulse Oximetry 98 99 Oxygen Delivery 12/25/24 16:14 12/25/24 16:15 12/25/24 16:19 Temperature Pulse Rate 78 Respiratory Rate Blood Pressure 129/84 Pulse Oximetry 99 99 Oxygen Delivery 12/25/24 16:24 12/25/24 16:29 12/25/24 16:30 Temperature Pulse Rate 77 Respiratory Rate Blood Pressure 120/69 Pulse Oximetry 99 99 Oxygen Delivery 12/25/24 16:34 12/25/24 16:39 12/25/24 16:44 Temperature Pulse Rate Respiratory Rate Blood Pressure Pulse Oximetry 100 100 98 Oxygen Delivery 12/25/24 16:46 12/25/24 16:49 12/25/24 16:54 Temperature Pulse Rate 68 Respiratory Rate Blood Pressure 135/71 Pulse Oximetry 100 100 Oxygen Delivery 12/25/24 16:59 12/25/24 17:00 12/25/24 17:01 Temperature 97.8 F Pulse Rate 70 Respiratory Rate Blood Pressure 107/62 Pulse Oximetry 99 Oxygen Delivery 12/25/24 17:04 12/25/24 17:09 12/25/24 17:14 Temperature Pulse Rate Respiratory Rate Blood Pressure Pulse Oximetry 99 99 98 Oxygen Delivery 12/25/24 17:15 12/25/24 17:19 12/25/24 17:24 Temperature Pulse Rate 74 Respiratory Rate Blood Pressure 118/70 Pulse Oximetry 99 99 Oxygen Delivery 12/25/24 17:29 12/25/24 17:30 12/25/24 17:34 Temperature Pulse Rate 77 Respiratory Rate Blood Pressure 118/59 L Pulse Oximetry 100 99 Oxygen Delivery 12/25/24 17:39 12/25/24 17:44 12/25/24 17:46 Temperature Pulse Rate 62 Respiratory Rate Blood Pressure 127/65 Pulse Oximetry 99 99 Oxygen Delivery 12/25/24 17:49 12/25/24 17:54 12/25/24 17:59 Temperature Pulse Rate Respiratory Rate Blood Pressure Pulse Oximetry 99 99 99 Oxygen Delivery 12/25/24 18:00 12/25/24 18:04 12/25/24 18:09 Temperature 98.9 F Pulse Rate 80 Respiratory Rate Blood Pressure 141/109 H Pulse Oximetry 99 99 Oxygen Delivery 12/25/24 18:14 12/25/24 18:15 12/25/24 18:19 Temperature Pulse Rate 74 Respiratory Rate Blood Pressure 134/88 Pulse Oximetry 99 100 Oxygen Delivery 12/25/24 18:24 12/25/24 18:29 12/25/24 18:30 Temperature 98.2 F Pulse Rate 79 Respiratory Rate 18 Blood Pressure 141/89 H Pulse Oximetry 99 100 Oxygen Delivery 12/25/24 18:34 12/25/24 18:39 12/25/24 18:44 Temperature Pulse Rate Respiratory Rate Blood Pressure Pulse Oximetry 99 100 99 Oxygen Delivery 12/25/24 18:46 12/25/24 18:49 12/25/24 18:54 Temperature Pulse Rate 72 Respiratory Rate Blood Pressure 128/58 L Pulse Oximetry 99 99 Oxygen Delivery 12/25/24 18:59 12/25/24 19:00 12/25/24 19:04 Temperature Pulse Rate 62 Respiratory Rate Blood Pressure 122/61 Pulse Oximetry 99 100 Oxygen Delivery 12/25/24 19:09 12/25/24 19:14 12/25/24 19:15 Temperature Pulse Rate 80 Respiratory Rate Blood Pressure 130/64 Pulse Oximetry 99 100 Oxygen Delivery 12/25/24 19:19 12/25/24 19:24 12/25/24 19:29 Temperature Pulse Rate Respiratory Rate Blood Pressure Pulse Oximetry 100 98 100 Oxygen Delivery 12/25/24 19:31 12/25/24 19:34 12/25/24 19:39 Temperature Pulse Rate 71 Respiratory Rate Blood Pressure 116/64 Pulse Oximetry 98 98 Oxygen Delivery 12/25/24 19:44 12/25/24 19:46 12/25/24 19:49 Temperature Pulse Rate 80 Respiratory Rate Blood Pressure 123/95 H Pulse Oximetry 100 100 Oxygen Delivery 12/25/24 19:54 12/25/24 19:59 12/25/24 20:00 Temperature Pulse Rate 91 Respiratory Rate Blood Pressure 114/80 Pulse Oximetry 99 99 Oxygen Delivery 12/25/24 20:04 12/25/24 20:09 12/25/24 20:13 Temperature Pulse Rate 76 Respiratory Rate Blood Pressure 132/87 Pulse Oximetry 100 100 Oxygen Delivery 12/25/24 20:14 12/25/24 20:15 12/25/24 20:18 Temperature Pulse Rate 98 77 Respiratory Rate Blood Pressure 99/73 L 122/79 Pulse Oximetry 100 Oxygen Delivery 12/25/24 20:19 12/25/24 20:21 12/25/24 20:24 Temperature Pulse Rate 99 110 H 94 Respiratory Rate Blood Pressure 132/67 126/71 142/89 H Pulse Oximetry 100 100 Oxygen Delivery 12/25/24 20:27 12/25/24 20:29 12/25/24 20:30 Temperature Pulse Rate 114 H 84 Respiratory Rate Blood Pressure 127/52 L 125/74 Pulse Oximetry 100 Oxygen Delivery 12/25/24 20:33 12/25/24 20:34 12/25/24 20:37 Temperature Pulse Rate 100 100 Respiratory Rate Blood Pressure 126/75 145/77 H Pulse Oximetry 100 Oxygen Delivery 12/25/24 20:39 12/25/24 20:42 12/25/24 20:44 Temperature Pulse Rate 118 H 91 Respiratory Rate Blood Pressure 125/48 L 124/72 Pulse Oximetry 100 100 Oxygen Delivery 12/25/24 20:45 12/25/24 20:49 12/25/24 20:54 Temperature Pulse Rate 102 H Respiratory Rate Blood Pressure 121/100 H Pulse Oximetry 100 99 Oxygen Delivery 12/25/24 20:59 12/25/24 21:00 12/25/24 21:04 Temperature Pulse Rate 79 Respiratory Rate Blood Pressure 125/69 Pulse Oximetry 99 98 Oxygen Delivery 12/25/24 21:09 12/25/24 21:14 12/25/24 21:15 Temperature Pulse Rate 85 Respiratory Rate Blood Pressure 122/59 L Pulse Oximetry 99 99 Oxygen Delivery 12/25/24 21:19 12/25/24 21:24 12/25/24 21:29 Temperature Pulse Rate Respiratory Rate Blood Pressure Pulse Oximetry 99 100 99 Oxygen Delivery 12/25/24 21:31 12/25/24 21:34 12/25/24 21:39 Temperature Pulse Rate 93 Respiratory Rate Blood Pressure 95/56 L Pulse Oximetry 99 99 Oxygen Delivery 12/25/24 21:44 12/25/24 21:45 12/25/24 21:49 Temperature Pulse Rate 79 Respiratory Rate Blood Pressure 138/72 Pulse Oximetry 99 99 Oxygen Delivery 12/25/24 21:54 12/25/24 21:59 12/25/24 22:00 Temperature Pulse Rate 86 Respiratory Rate Blood Pressure 129/74 Pulse Oximetry 99 99 Oxygen Delivery 12/25/24 22:04 12/25/24 22:09 12/25/24 22:14 Temperature Pulse Rate Respiratory Rate Blood Pressure Pulse Oximetry 100 100 100 Oxygen Delivery 12/25/24 22:15 12/25/24 22:19 12/25/24 22:24 Temperature Pulse Rate 112 H Respiratory Rate Blood Pressure 129/107 H Pulse Oximetry 100 100 Oxygen Delivery 12/25/24 22:29 12/25/24 22:30 12/25/24 22:31 Temperature 98.7 F Pulse Rate 90 Respiratory Rate Blood Pressure 123/54 L Pulse Oximetry 99 Oxygen Delivery 12/25/24 22:34 12/25/24 22:39 12/25/24 22:44 Temperature Pulse Rate Respiratory Rate Blood Pressure Pulse Oximetry 99 100 99 Oxygen Delivery 12/25/24 22:45 12/25/24 22:49 12/25/24 22:54 Temperature Pulse Rate 81 Respiratory Rate Blood Pressure 113/69 Pulse Oximetry 100 100 Oxygen Delivery 12/25/24 22:59 12/25/24 23:00 12/25/24 23:04 Temperature Pulse Rate 75 Respiratory Rate Blood Pressure 117/63 Pulse Oximetry 100 100 Oxygen Delivery 12/25/24 23:09 12/25/24 23:14 12/25/24 23:15 Temperature Pulse Rate 84 Respiratory Rate Blood Pressure 121/62 Pulse Oximetry 99 100 Oxygen Delivery 12/25/24 23:19 12/25/24 23:24 12/25/24 23:29 Temperature Pulse Rate Respiratory Rate Blood Pressure Pulse Oximetry 100 100 100 Oxygen Delivery 12/25/24 23:30 12/25/24 23:34 12/25/24 23:39 Temperature Pulse Rate 89 Respiratory Rate Blood Pressure 133/89 Pulse Oximetry 99 100 Oxygen Delivery 12/25/24 23:44 12/25/24 23:45 12/25/24 23:49 Temperature Pulse Rate 88 Respiratory Rate Blood Pressure 130/84 Pulse Oximetry 100 99 Oxygen Delivery 12/25/24 23:54 12/25/24 23:59 12/26/24 00:00 Temperature Pulse Rate 99 Respiratory Rate Blood Pressure 128/77 Pulse Oximetry 100 100 Oxygen Delivery 12/26/24 00:04 12/26/24 00:09 12/26/24 00:14 Temperature Pulse Rate Respiratory Rate Blood Pressure Pulse Oximetry 100 100 100 Oxygen Delivery 12/26/24 00:15 12/26/24 00:19 12/26/24 00:24 Temperature Pulse Rate 96 Respiratory Rate Blood Pressure 124/75 Pulse Oximetry 100 100 Oxygen Delivery 12/26/24 00:29 12/26/24 00:30 12/26/24 00:34 Temperature 98.6 F Pulse Rate 86 Respiratory Rate Blood Pressure 122/67 Pulse Oximetry 99 99 Oxygen Delivery 12/26/24 00:39 12/26/24 00:44 12/26/24 00:45 Temperature Pulse Rate 97 Respiratory Rate Blood Pressure 139/80 Pulse Oximetry 100 100 Oxygen Delivery 12/26/24 00:49 12/26/24 00:54 12/26/24 00:59 Temperature Pulse Rate Respiratory Rate Blood Pressure Pulse Oximetry 100 100 100 Oxygen Delivery 12/26/24 01:00 12/26/24 01:04 12/26/24 01:09 Temperature Pulse Rate 90 Respiratory Rate Blood Pressure 132/77 Pulse Oximetry 99 99 Oxygen Delivery 12/26/24 01:14 12/26/24 01:15 12/26/24 01:19 Temperature Pulse Rate 97 Respiratory Rate Blood Pressure 130/67 Pulse Oximetry 99 98 Oxygen Delivery 12/26/24 01:24 12/26/24 01:29 12/26/24 01:30 Temperature Pulse Rate 80 Respiratory Rate Blood Pressure 115/70 Pulse Oximetry 99 98 Oxygen Delivery 12/26/24 01:34 12/26/24 01:39 12/26/24 01:44 Temperature Pulse Rate Respiratory Rate Blood Pressure Pulse Oximetry 98 98 98 Oxygen Delivery 12/26/24 01:45 12/26/24 01:49 12/26/24 01:54 Temperature Pulse Rate 96 Respiratory Rate Blood Pressure 140/82 Pulse Oximetry 99 98 Oxygen Delivery 12/26/24 01:59 12/26/24 02:00 12/26/24 02:04 Temperature Pulse Rate 96 Respiratory Rate Blood Pressure 141/71 H Pulse Oximetry 99 99 Oxygen Delivery 12/26/24 02:09 12/26/24 02:14 12/26/24 02:15 Temperature Pulse Rate 88 Respiratory Rate Blood Pressure 135/82 Pulse Oximetry 99 98 Oxygen Delivery 12/26/24 02:19 12/26/24 02:24 12/26/24 02:25 Temperature 98.3 F Pulse Rate Respiratory Rate Blood Pressure Pulse Oximetry 98 98 Oxygen Delivery 12/26/24 02:29 12/26/24 02:30 12/26/24 02:34 Temperature Pulse Rate 92 Respiratory Rate Blood Pressure 131/78 Pulse Oximetry 99 99 Oxygen Delivery 12/26/24 02:39 12/26/24 02:44 12/26/24 02:45 Temperature Pulse Rate 100 Respiratory Rate Blood Pressure 130/81 Pulse Oximetry 98 100 Oxygen Delivery 12/26/24 02:49 12/26/24 02:54 12/26/24 02:59 Temperature Pulse Rate Respiratory Rate Blood Pressure Pulse Oximetry 98 100 100 Oxygen Delivery 12/26/24 03:00 12/26/24 03:04 12/26/24 03:07 Temperature Pulse Rate 131 H 71 Respiratory Rate Blood Pressure 147/97 H 134/76 Pulse Oximetry 100 Oxygen Delivery 12/26/24 03:09 12/26/24 03:14 12/26/24 03:15 Temperature Pulse Rate 78 Respiratory Rate Blood Pressure 116/62 Pulse Oximetry 97 97 Oxygen Delivery 12/26/24 03:19 12/26/24 03:24 12/26/24 03:29 Temperature Pulse Rate Respiratory Rate Blood Pressure Pulse Oximetry 97 97 97 Oxygen Delivery 12/26/24 03:30 12/26/24 03:34 12/26/24 03:39 Temperature Pulse Rate 71 Respiratory Rate Blood Pressure 111/62 Pulse Oximetry 97 97 Oxygen Delivery 12/26/24 03:44 12/26/24 03:45 12/26/24 03:49 Temperature Pulse Rate 70 Respiratory Rate Blood Pressure 111/60 Pulse Oximetry 97 97 Oxygen Delivery 12/26/24 03:54 12/26/24 03:59 12/26/24 04:00 Temperature Pulse Rate 68 Respiratory Rate Blood Pressure 113/43 L Pulse Oximetry 97 98 Oxygen Delivery 12/26/24 04:04 12/26/24 04:09 12/26/24 04:14 Temperature Pulse Rate Respiratory Rate Blood Pressure Pulse Oximetry 96 97 97 Oxygen Delivery 12/26/24 04:15 12/26/24 04:19 12/26/24 04:24 Temperature Pulse Rate 67 Respiratory Rate Blood Pressure 107/46 L Pulse Oximetry 97 97 Oxygen Delivery 12/26/24 04:29 12/26/24 04:30 12/26/24 04:32 Temperature 98.9 F Pulse Rate 64 Respiratory Rate Blood Pressure 108/43 L Pulse Oximetry 97 Oxygen Delivery 12/26/24 04:34 12/26/24 04:39 12/26/24 04:44 Temperature Pulse Rate Respiratory Rate Blood Pressure Pulse Oximetry 97 97 97 Oxygen Delivery 12/26/24 04:46 12/26/24 04:49 12/26/24 04:54 Temperature Pulse Rate 63 Respiratory Rate Blood Pressure 106/43 L Pulse Oximetry 97 97 Oxygen Delivery 12/26/24 04:59 12/26/24 05:00 12/26/24 05:04 Temperature Pulse Rate 61 Respiratory Rate Blood Pressure 113/51 L Pulse Oximetry 97 97 Oxygen Delivery 12/26/24 05:09 12/26/24 05:14 12/26/24 05:15 Temperature Pulse Rate 71 Respiratory Rate Blood Pressure 105/63 Pulse Oximetry 97 97 Oxygen Delivery 12/26/24 05:19 12/26/24 05:24 12/26/24 05:29 Temperature Pulse Rate Respiratory Rate Blood Pressure Pulse Oximetry 97 98 100 Oxygen Delivery 12/26/24 05:34 12/26/24 05:39 12/26/24 05:44 Temperature Pulse Rate Respiratory Rate Blood Pressure Pulse Oximetry 100 99 99 Oxygen Delivery 12/26/24 05:45 12/26/24 05:49 12/26/24 05:54 Temperature Pulse Rate 61 Respiratory Rate Blood Pressure 127/84 Pulse Oximetry 99 99 Oxygen Delivery 12/26/24 05:59 12/26/24 06:01 12/26/24 06:04 Temperature Pulse Rate 69 Respiratory Rate Blood Pressure 131/82 Pulse Oximetry 99 99 Oxygen Delivery 12/26/24 06:09 12/26/24 06:14 12/26/24 06:15 Temperature 98.2 F Pulse Rate 78 Respiratory Rate Blood Pressure 149/91 H Pulse Oximetry 100 100 Oxygen Delivery 12/26/24 06:19 12/26/24 06:24 12/26/24 06:29 Temperature Pulse Rate Respiratory Rate Blood Pressure Pulse Oximetry 100 100 100 Oxygen Delivery 12/26/24 06:31 12/26/24 06:34 12/26/24 06:39 Temperature Pulse Rate 135 H Respiratory Rate Blood Pressure 150/77 H Pulse Oximetry 100 100 Oxygen Delivery 12/26/24 06:40 12/26/24 06:45 12/26/24 06:50 Temperature Pulse Rate Respiratory Rate Blood Pressure Pulse Oximetry 100 100 100 Oxygen Delivery 12/26/24 06:55 12/26/24 07:00 12/26/24 07:05 Temperature Pulse Rate Respiratory Rate Blood Pressure Pulse Oximetry 100 100 98 Oxygen Delivery 12/26/24 07:10 Temperature Pulse Rate Respiratory Rate Blood Pressure Pulse Oximetry 100 Oxygen Delivery Exam Const: General: uncomfortable (increased rectal and pelvic pressure especially with contractions) Eyes: General: appearance normal, both eyes and all related structures Resp: Effort & Inspection: normal respiratory effort Cardio: Rate: regular rate Skin: General skin exam: normal color Extrem: General: normal to inspection Psych: Mental Status: mental status grossly normal H&P: Results Labs Labs: Short CBC 12/25/24 Range/Units 12:03 WBC 9.3 (4.5-10.0) K/mm3 Hgb 11.7 L (12.0-15.0) g/dL Hct 37.4 (37.0-47.0) % Plt Count 227 (150-375) k/mm3 BMP 12/25/24 12:03 Sodium 132 L Potassium 4.1 Chloride 106 Carbon Dioxide 18 L BUN 10 D Creatinine 0.58 L Glucose 95 Calcium 9.3 Liver Function 12/25/24 Range/Units 12:03 Total Bilirubin 0.5 (0.2-1.3) mg/dL AST 23 (14-36) U/L ALT 15 (6-35) U/L Alkaline Phosphatase 207 H (38-126) U/L Albumin 3.6 (3.5-5.1) g/dL Assessment and Plan Assessment and plan (1) Labor abnormality, antepartum: Code(s): O62.9 - Abnormality of forces of labor, unspecified Status: Acute Assessment and Plan: - ROP position of fetus, patient not making progress with pushing and unable to tolerate position changes or manual rotation - risks, benefits, and alternatives of PCS vs continued pushing efforts discussed with patient who voices understanding and would like to proceed with PCS.
[2024-12-26] MEDS: ONDANSETRON INJ 4 MG/2 ML VIAL IV PUSH (07:18)
[2024-12-26] MEDS: FAMOTIDINE 20 MG/2 ML VIAL IV PUSH (07:18)
[2024-12-26] MEDS: ceFAZolin 2 GM in SODIUM CHLORIDE 0.9% IV 50 ML 100 ML IVPB (07:23)
[2024-12-26] MEDS: AZITHROMYCIN IV 500 MG in SODIUM CHLORIDE 0.9% IV 250 ML IVPB (07:23)
--- NOTE | 2024-12-26 07:23 | WPDHPUPDATE1 ---
History and Physical Update Update Date/Time: 12/26/24 07:23 History and Physical has been reviewed, including an updated exam of the patient. There are NO changes in the patient's condition. Risks, benefits, and alternatives have been discussed and questions answered. Patient agrees to proceed with procedure.
[2024-12-26] MEDS: OXYTOCIN 30 UNITS/NS 500 ML 30 UNITS/500 ML BAG 125 UNITS IV CONT (07:45)
[2024-12-26] MEDS: MORPHINE SULFATE INJ (*CRX) 10 MG/ML AMP 2.5 MG IV PUSH ×3 (09:03→09:42)
[2024-12-26] MEDS: LIDOCAINE 5% PATCH 1 PATCH TRANSDERM (09:47)
[2024-12-26] MEDS: HYDROmorphon 0.2MG/ML PCA(*CRX 6 MG/30 ML PCA.VIAL IV CONT (10:30)
[2024-12-26] MEDS: DEXTROSE 5%/0.45% SOD CHL 1,000 ML 125 ML IV CONT ×2 (10:43→23:47)
[2024-12-26] MEDS: KETOROLAC 15 MG/ML VIAL (*BKC) IV PUSH ×3 (12:01→23:30)
[2024-12-26] MEDS: SIMETHICONE 80 MG TAB.CHEW PO ×2 (12:03→17:51)
[2024-12-26] MEDS: ACETAMINOPHEN 500 MG TABLET 1000 MG PO ×3 (12:04→23:30)
--- NOTE | 2024-12-26 12:30 | PC.NURSE ---
Introductions were made, then consulted with patient to assess needs related to . Discussed with mother her plans to feed her and the experience so far. Patient had general anesthesia and has a [employer] pain pump. Her pain has not been well controlled until now and she was unable to breastfeed and gave two bottles. She wants to put baby to breast at the next feeding. Discussed need to pump if infant does not latch and nurse well at the next feeding time. Patient agrees with this plan. Resources provided for inpatient and outpatient services with the feeding sheet, mom/baby guide and name written on the communication board. Mother voiced understanding of information and will call if there is a request for assistance. Reported to the Primary RN.?
--- NOTE | 2024-12-26 13:07 | P.PCNOB_ITS ---
OB - Delivery Note Procedure Delivery date: 12/26/24 Pre-op diagnosis: Gestational Diabetes (A1), Gestational Hypertension and Other (Right Occiput Posterior position) Post-op Diagnosis: Same Delivery augmentation: Rupture of Membranes and Pitocin Delivery monitor: External FHT Prior to decision for section, [facility] labor guidelines were considered and discussed with the patient and staff. Decision made to proceed with the section.: Yes Procedure Performed: Primary Primary branch: low cervical, transverse Surgeon: Guille Sherman MD Anesthesia type: General Description of Procedure/Findings: The patient was taken to the operating room where she was placed in the dorsal supine position with a leftward tilt. The electronic monitor was placed and heart rate was found to be reassuring. She was prepped and draped in the normal sterile fashion, and anesthesia was not adequate. The decision was made to proceed with general endotracheal intubation. At the appropriate time, a Pfannenstiel skin incision was made with the scalpel and carried through to the underlying layer of fascia with the scalpel. The fascia was incised in the midline and the incision extended laterally with the Helton scissors. The superior aspect of the fascial incision was then grasped with Ramon clamps, elevated, and the underlying rectus muscles dissected off bluntly and with Helton scissors. Attention was then turned to the inferior aspect of the fascial incision, which in similar fashion was grasped, elevated, and the rectus muscles dissected off.? The rectus muscles were then in the midline, and the peritoneum entered bluntly. The peritoneal incision was extended superiorly and inferiorly with good visualization of the bladder. With the bladder blade providing retraction and visualization, the lower uterine segment was incised in a transverse fashion with the scalpel. The uterine incision was then extended laterally. The bladder blade was removed and the infant's head was elevated and delivered atraumatically. The remainder of the infant was then delivered without difficulty, and the 's nose and mouth were suctioned with the bulb suction. The umbilical cord was doubly clamped and cut. The was then handed off to the waiting nursing staff. Specimens then obtained as listed below. The placenta was then removed manually and the uterus was exteriorized and cleared of all clots and debris. The uterine incision was repaired with 0- Monocryl in a running, interlocked fashion. The posterior cul-de-sac was manually cleared of all clots and debris. The uterus was returned to the abdomen . The gutters were then manually cleared of all clots and debris.? The uterine incision was visualized to be hemostatic. The fascia was reapproximated with 0- Vicryl in a running fashion. The subcutaneous tissues were irrigated with warmed normal saline, and hemostasis was assured. The skin was closed with 4-0 monocryl in a running subcuticular stitch. Fundal pressure was applied to express remaini ng intrauterine clots and debris. The patient tolerated the procedure well. Sponge, lap, and needle counts were correct times three per nursing. The patient was taken to the recovery room in stable condition. Specimen: No Estimated Blood Loss: 275 Pathology: None sent Complications: No immediate complications Condition: Stable Disposition: Floor Baby Date of : 12/26/24 Gestational Age by Date: 39 Infant gender: Male presentation: vertex position: Right Occiput Posterior Placenta delivery description: Expressed Cord Vessel Description: 3 Vessels, Nuchal Cord, Clamped/Cut and Around Body
--- NOTE | 2024-12-26 16:01 | PC.NURSE ---
1540. Introductions were made, then consulted with patient to assess needs related to . Discussed with mother her plans to feed her and the experience so far. Encouraged mother to express any questions or concerns she has regarding feedings. Advised her to call out for a latch check or if she needs assistance waking or positioning baby. Max assisted mother latching infant to the right breast in football position. was able to maintain an appropriate latch. Mother declines nipple pain/discomfort throughout feeding. Encouraged mother to keep infant awake and nursing at the breast for as long as baby desires. Mother taught to listen for infant swallowing during feedings. Reviewed using the blue feeding sheet to record time and duration of feeding. Reviewed the blue feeding worksheet for required output and feeding at least 8-12 times every 24 hours. Resources provided for inpatient and outpatient services with the feeding sheet, mom/baby guide, and name/number written on the communication board. Mother voiced understanding of information and will call if there is a request for assistance. Reported to the Primary RN?
--- NOTE | 2024-12-26 16:27 | PC.NURSE ---
1627. Mother called out asking for a bottle of formula to feed . RN went in to assess mothers feeding intent. Mom had just latched and fed for 20 min in football hold to the R breast and 10 min to the L breast. Mom confirmed it is her intent to combo feed the . Mom was given a bottle and we reviewed feeding positioning with a bottle and how to chart feedings on the blue feeding sheet. Reported to primary RN.
[2024-12-26] MEDS: DOCUSATE SODIUM 100 MG CAPSULE PO (17:51)
[2024-12-26] MEDS: KCL 20 MEQ/D5/0.45% SOD CHL 1,000 ML 125 ML IV CONT (17:55)
[2024-12-27] VITALS (10 sets, daily range): BP systolic 123–143; BP diastolic 70–91; PULSE 72–93; RESP 18; TEMP 36.4–36.9; O2SAT 97–99
[2024-12-27] MEDS: IBUPROFEN 600 MG TABLET PO ×4 (05:00→23:30)
[2024-12-27] MEDS: ACETAMINOPHEN 500 MG TABLET 1000 MG PO ×4 (05:00→23:30)
[2024-12-27 05:12] LABS: Hematocrit 30.7 % (37.0-47.0); Hemoglobin 9.4 g/dL (12.0-15.0); Immature Granulocyte Percent A 0.4 % (0-0.5); Lymphocytes Absolute Auto 1.49 K/mm3 (0.9-3.2); Mean Corpuscular HGB Conc 30.6 g/dl (32-36); Mean Corpuscular Hemoglobin 26.3 pg (26-34); Mean Corpuscular Volume 85.8 fl (80-100); Nucleated Red Blood Cells Absolute Auto 0.000 K/mm3 (0.0-0.012); Nucleated Red Blood Cells Perc 0.0 % (0.0-0.2); Platelet Count Result 176 k/mm3 (150-375); Red Blood Count 3.58 M/mm3 (4.2-5.4); White Blood Count 10.4 K/mm3 (4.5-10.0)
[2024-12-27] MEDS: DOCUSATE SODIUM 100 MG CAPSULE PO ×2 (08:58→17:27)
[2024-12-27] MEDS: SIMETHICONE 80 MG TAB.CHEW PO ×3 (08:58→17:27)
[2024-12-27] MEDS: MULTIVIT/MIN/PREN/FOL AC/IRON TABLET 1 TAB PO (08:59)
--- NOTE | 2024-12-27 10:20 | PC.NURSE ---
Introductions were made, then consulted with patient to assess needs related to . Discussed with mother her?plans to feed?her and the?experience so far. She had one yesterday and none today. Patient states that she would like to try to put baby to breast but that when she does, baby will suck a few times and then let go of the nipple. Patient was offered a breast pump last night but she did not want to pump at that time. She states that today she will call out for assistance with feeding, will put baby to breast first at each feeding, and will consider pumping if baby does not breastfeed well today. Resources provided for inpatient and outpatient services with the feeding sheet, mom/baby guide and name written on the communication board. Mother voiced understanding of information and will call if there is a request for assistance. Reported to the Primary RN.
[2024-12-27] MEDS: LANOLIN (LANSINOH) 7.5 GM CREAM 1 APPLIC TOPICAL (11:13)
[2024-12-27] MEDS: RHO(D) IMMUNE GLOBULIN 300 MCG/2 ML SYRINGE IM (11:15)
--- NOTE | 2024-12-27 12:19 | PM.OBPNVD ---
OB - PN: Subj Subjective Date/time seen: 12/27/24 12:19 Patient comments: no complaints, pain well controlled, incisional pain, tolerating diet and flatus present OB - PN: Obj Data Labs 12/27/24 04:46 12/25/24 12:03 Labs: Laboratory Results - last 24 hr 12/27/24 04:46 WBC 10.4 H RBC 3.58 L Hgb 9.4 L Hct 30.7 L MCV 85.8 MCH 26.3 MCHC 30.6 L RDW 20.9 H Plt Count 176 MPV 11.8 H Immature Gran % (Auto) 0.4 Neut % (Auto) 75.9 H Lymph % (Auto) 14.4 L Glades % (Auto) 7.5 Eos % (Auto) 1.4 Baso % (Auto) 0.4 Lymph # (Auto) 1.49 Glades # (Auto) 0.8 H Eos # (Auto) 0.2 Baso # (Auto) 0.0 Abs Immat Gran (auto) 0.04 H Absolute Neuts (auto) 7.9 H Absolute Nucleated RBC 0.000 Nucleated RBC % 0.0 Blood Type A Negative Antibody Screen Negative Screen Negative Baby's Blood Type A pos Baby's ALVARADO Negative Doses of RhIg Required 1 OB - PN A/P Plan day: 1 Plan: routine care Comments: No problems, routine care Time Spent With Patient Time: Total time spent is greater than 50% in coordination of care (as documented) at patient's floor/unit and/or counseling patient: Exam Const: General: comfortable, no acute distress and alert Resp: Effort & Inspection: normal respiratory effort Auscultation: no crackles, no rales and no rhonchi Cardio: Rate: regular rate Heart sounds: no click, no murmurs and no rubs GI: Inspection: non-distended GI Palp: No Tenderness to palpation present (GI) Auscultation: normal bowel sounds Other: Incision - CDI Extrem: General: normal to inspection, no pedal edema and no calf tenderness
--- NOTE | 2024-12-27 14:28 | WPDANLDPN2 ---
Anes-Prog Note L&D Date/Time: 12/27/24 14:28 Comfortable throughout: labor and section Neuraxial method: epidural Epidural/Spinal procedure site: clean & non-tender Neuro status: Neuro function grossly intact. Cardiovascular status: normal Respiratory status: normal Airway patency: baseline Mental status: baseline Post-Op hydration status: normal Vital Signs: Last Vital Signs Temp 97.6 F 12/27/24 03:01 Pulse 84 12/27/24 03:01 Resp 18 12/27/24 05:00 BP 126/71 12/27/24 03:01 Pulse Ox 97 12/27/24 05:00 O2 Del Method Room Air 12/26/24 20:00 O2 Flow Rate 1 12/26/24 09:19 Pain score (VAS): 4 I/O: Intake & Output 12/26/24 12/27/24 12/27/24 23:59 07:59 15:59 Intake Total 2956.0 807.6 Output Total 1400 400 Balance 1556.0 407.6 Post-procedural complaints: none Patient feedback: Patient satisfied with anesthetic care. one sided block with first epidural. epidural replaced. pt labored through night. failed to set up adequately for CS and required a general anesthetic.no complaints today
[2024-12-28 03:48] VITALS: BP 136/90; PULSE 78
[2024-12-28] MEDS: ACETAMINOPHEN 500 MG TABLET 1000 MG PO ×2 (05:21→11:54)
[2024-12-28] MEDS: IBUPROFEN 600 MG TABLET PO ×2 (05:21→11:54)
[2024-12-28 08:25] VITALS: BP 142/84; PULSE 72; RESP 18; TEMP 36.8; O2SAT 99
[2024-12-28] MEDS: MULTIVIT/MIN/PREN/FOL AC/IRON TABLET 1 TAB PO (09:13)
[2024-12-28] MEDS: SIMETHICONE 80 MG TAB.CHEW PO ×2 (09:13→11:54)
[2024-12-28] MEDS: DOCUSATE SODIUM 100 MG CAPSULE PO (09:13)
--- NOTE | 2024-12-28 09:58 | P.PNOB_ITS ---
OB - PN: Subj Subjective Date/time seen: 12/28/24 09:58 Patient comments: no complaints, pain well controlled, incisional pain, tolerating diet and flatus present OB - PN: Obj Data Labs 12/27/24 04:46 12/25/24 12:03 Labs: Laboratory Results - last 24 hr 12/27/24 04:46 Blood Type A Negative Antibody Screen Negative Screen Negative Baby's Blood Type A pos Baby's ALVARADO Negative Doses of RhIg Required 1 OB - PN A/P Plan day: 2 Plan: routine care Comments: POD#2 LTCS - no problems, Time Spent With Patient Time: Total time spent is greater than 50% in coordination of care (as documented) at patient's floor/unit and/or counseling patient: Exam 2 Const: General: comfortable, no acute distress and alert Resp: Effort & Inspection: normal respiratory effort Auscultation: no crackles, no rales and no rhonchi Cardio: Rate: regular rate Heart sounds: no click, no murmurs and no rubs GI: Inspection: non-distended Auscultation: normal bowel sounds Other: Incision - CDI Extrem: General: normal to inspection, no pedal edema and no calf tenderness
--- NOTE | 2024-12-28 09:59 | P.DS_ITS ---
DS: Admitting Diagnosis Discharge Date 12/28/24 Admitting Diagnosis term DS: Discharge Diagnosis Discharge Diagnosis (1) Term delivered: Code(s): O80 - Encounter for full-term uncomplicated delivery Status: Acute OB - DS: Summary OB Procedures : None OB Procedures Intrapartum: OB Procedures: : None Peripartum Data Procedures: Procedures Operation Date: 12/26/24 07:05 Actual Procedure Side Surgeon p Section Guille Sherman MD Time Spent with Patient Time attestation: Total time spent providing and/or coordinating discharge services: DS: Data Data Completed and Pending Labs on day of discharge: Labs from last 24 hours 12/27/24 04:46 Blood Type A Negative Antibody Screen Negative Screen Negative Baby's Blood Type A pos Baby's ALVARADO Negative Doses of RhIg Required 1 Discharge Plan Discharge Consulting providers: Tonja Mayer Discharging Clinician: Milton Bustamante Patient Disposition: Home Activity: pelvic rest Diet: regular Patient Instructions: Antibiotic Form Patient Language: Canadian Stand Alone Forms: General Discharge Information Follow-up/Referrals: Milton Bustamante MD [Physician, RESEARCH ANIMAL ATTENDANT] Discharge Medications: New hydrocodone-acetaminophen 5-325 mg tablet 1 - 2 tablet PO Q6H PRN (Reason: pain) Qty: 25 0RF Continued 400 mcg tablet,chewable 1 tablet PO DAILY calcium carbonate [Tums] 200 mg calcium (500 mg) tablet,chewable 200 mg PO QID PRN (Reason: dyspepsia) Patient Comments: .. Date of admission: 12/25/24 09:44 Primary Care Provider: UNKNOWN,DOCTOR Admitting Provider: Milton Bustamante Attending physician on admission: Milton Bustamante Condition: Stable
[2024-12-30 09:32] VITALS: BP 143/88; PULSE 88; RESP 18; TEMP 36.6; O2SAT 100
== END 2024-12-28 12:25 | disposition home or self-care (01) | DRG 540 ==
LOC: ANHLDR 12:07 → ANHOB2 12-26 11:01
PROVIDERS: Advanced Practice Midwife; Obstetrics & Gynecology; Admitting Provider Obstetrics & Gynecology; Visit Provider Obstetrics & Gynecology
PROC: 10D00Z1 Extraction of Products of Conception, Low, Open Approach (ICD-10-PCS; CPT 59514; principal; 2024-12-26 07:05)
DX: O77.0 Labor and delivery complicated by meconium in amniotic fluid (principal); O24.429 Gestational diabetes mellitus in childbirth, unspecified control; O13.4 Gestational [pregnancy-induced] hypertension without significant proteinuria, complicating childbirth; O99.824 Streptococcus B carrier state complicating childbirth; O69.81X0 Labor and delivery complicated by cord around neck, without compression, not applicable or unspecified; O32.8XX0 Maternal care for other malpresentation of fetus, not applicable or unspecified; Z3A.39 39 weeks gestation of pregnancy; Z37.0 Single live birth; Z87.891 Personal history of nicotine dependence
CPT/HCPCS: 36415; 80053; 82948; 85025; 85461; 86593; 86850; 86880; 86900; 86901; 86902; 90384; J0690; A9270; J0290; J0330; J0456; J1171; J1885; J2004; J2270; J2405; J2590; J2704; J2790; J2795; J3480; J7030; J7050; J7120

== ENCOUNTER 2025-03-30 10:35 | Outpatient (CLI) | payer OTHER, SELFPAY ==
[2025-03-30 11:03] LABS: Hematocrit 38.1 % (37.0-47.0); Hemoglobin 12.2 g/dL (12.0-15.0); Immature Granulocyte Percent A 0.2 % (0-0.5); Lymphocytes Absolute Auto 1.96 K/mm3 (0.9-3.2); Mean Corpuscular HGB Conc 32.0 g/dl (32-36); Mean Corpuscular Hemoglobin 28.0 pg (26-34); Mean Corpuscular Volume 87.6 fl (80-100); Nucleated Red Blood Cells Absolute Auto 0.000 K/mm3 (0.0-0.012); Nucleated Red Blood Cells Perc 0.0 % (0.0-0.2); Platelet Count Result 258 k/mm3 (150-375); Red Blood Count 4.35 M/mm3 (4.2-5.4); White Blood Count 5.8 K/mm3 (4.5-10.0)
[2025-03-30 11:31] LABS: Alanine Aminotransferase 44 U/L (6-35); Albumin Level 4.6 g/dL (3.5-5.1); Alkaline Phosphatase 57 U/L (38-126); Amylase 54 U/L (30-110); Aspartate Amino Transferase 30 U/L (14-36); Bilirubin,Total 0.6 mg/dL (0.2-1.3); Lipase 74 U/L (23-300); Total Protein 7.4 g/dL (6.3-8.2)
== END 2025-03-30 10:36 | disposition home or self-care (01) ==
PROVIDERS: PCP Obstetrics & Gynecology; Visit Provider Surgery
DX: Z01.818 Encounter for other preprocedural examination (principal); K80.10 Calculus of gallbladder with chronic cholecystitis without obstruction
CPT/HCPCS: 36415; 80076; 82150; 83690; 85025

== ENCOUNTER 2025-04-01 00:42 | Day surgery (SDC) | payer OTHER, SELFPAY ==
--- NOTE | 2025-03-27 13:05 | PC.NURSE ---
Addendum entered by Kami Escalera RN 03/27/25 13:12: PT WAS INFORMED SURGERY TIME IS 9:30 AM Original Note: [facility] has started construction of its new state of the art ER which will open Spring 2026. With this, we anticipate parking may be a challenge for some our surgical patients and families. Parking spaces are limited but are available for all Surgical, obstetrics, and ER patients sharing this lot. If you arrive and find you are having a hard time finding a parking space, please note that we understand the challenges, please drive around the hospital and park near Hospital Entrance 1. When you enter this entrance, you can ask a volunteer to direct or take you back to the surgical waiting area to check in. We appreciate everyone?s understanding of these expected challenges while we build for your future. Report to the Outpatient Waiting Room, entrance under the green pavilion located off [facility], at time___0730_ on date _04/01/25__. Planned Procedure Time: 0830 __.? Time changes happen often and if your time is changed the preop area will call you the afternoon before. - You and your visitor will be asked to self-screen and do not enter if you have any COVID symptoms. Please call surgeon if you need to reschedule. - A mask is optional within the hospital at this time. Patients may have clear liquids (water, carbonated beverages, clear teas, apple juice) until 3 hours prior to surgery with a maximum of 20 ounces. - No food from midnight until time of surgery and no smoking, or chewing tobacco (or any form of nicotine). No chewing gum, candy or mints. Take only the following medications with a SIP of water on the morning of surgery: NONE DO NOT STOP ANY OF YOUR OTHER PRESCRIPTION MEDICATIONS PRIOR TO SURGERY EXCEPT THE FOLLOWING Hold all vitamins and supplements for 3 days per anesthesiologist. Medications to discontinue per physician Date to take last dose Please no make-up, nail croatian, hairspray, perfume, deodorant, or body powder the day of surgery.? No jewelry (including any body piercings) or valuables the day of surgery, leave them at home.? Please take a shower or bath the night before, or the morning of, surgery with HIBICLENS antibacterial soap.? Wear comfortable, loose fitting clothing.? Children are encouraged to wear pajamas. - Jewelry must be removed prior to entering the operating room.? Rings and piercings that are not removed may be cut off. - The hospital will not accept responsibility for valuables.? - Please leave all valuables, including medications, at home the day of surgery. If you are going home after surgery, a licensed team driver must drive you home.? - NO public transportation without another adult if you receive anesthesia. - We recommend that an adult stay with you for 24 hours following discharge. - We also recommend that you do not drive, make important decision, drink alcoholic beverages, or take any drugs that were not prescribed by your health care provider for at least 24 hours after your discharge time. For Pediatric surgeries, we recommend two adults accompany the child home. Follow any additional instructions given to you from your surgeon. Telephone instructions given to __PATIENT__and asked if any additional questions and then verbalized understanding. Patient advised to call surgeon office or pre surgery nurse liaison [phone] if any additional questions.
[2025-04-01] VITALS (8 sets, daily range): BP systolic 107–137; BP diastolic 46–80; PULSE 57–87; RESP 10–16; TEMP 36.4–36.9; O2SAT 98–100; BMI 30.2
--- OUTSIDE RECORDS SUMMARY | 2025-04-01 00:46 | XMS_ITS | Clinical Summary ---
Author Organization [facility] Address [address] [facility] [place] [address] Phone Care Team Providers Care Aircraft Maintenance Instructor Name Role Phone Otoniel Noonan MD Primary Care Provider [phone] Harpreet Burch DPM Unavailable [phone] Allergies No known active allergies Medications [...] Virus (HCV) Screening 2003 TdaP Immunization 2003 Varicella Immunization (1 of 2 - 13+ 2-dose series) 11/06/2016 Human Papillomavirus (HPV) Immunization (1 - 3-dose series) 11/06/2018 Meningococcal B Immunization (1 of 2 - Standard) 2019 Hepatitis B Immunization (1 of 3 - 19+ 3-dose series) 11/06/2022 Influenza Immunization (#1) 2024 SARS-COV-2 Immunization (1 - 2024- season) 2024 Respiratory Syncytial Virus (RSV) Immunization [...] age to complete this topic Insurance MEDICAID [facility] MEDICAID [facility] [employer] Care Teams Aircraft Maintenance Instructor Relationship Specialty Start Date End Date Otoniel Noonan MD [facility] [place] [address] PCP - General Pediatrics 10/19/16 Harpreet Burch DPM [address] [place] [address] Consulting Physician Podiatry 10/19/16
--- OUTSIDE RECORDS SUMMARY | 2025-04-01 00:46 | XMS_ITS | Data Portability ---
Author Organization [facility] [place] Address [address] [place] [address] [place] [address] Assessment Encounter Date Assessment Date Assessment LastModified by Organization Details LastModified Time 12/24/2024 12/24/2024 Patient is _39__weeks . Discussed plan. Not available 12/24/2024 12:46:56 Plan of Treatment Reminders Order Date Submit Date Provider Last Modified By Organization Details Last Modified Time Details Appointments None recorded. Lab None recorded. Referral general surgeon referral [address] - General Surgery, [address] [place] [address] [address], [place], [address], 14:52:44 Procedures None recorded. Surgeries None recorded. Imaging US, obstetric, follow-up 2024 025 [address], [address], [place], [address], 09:08:47 Medication Orders Xulane 150 mcg-35 mcg/24 hr transdermal patch 2024 025 [facility] #[id number], [address], [place], [address], 13:58:34 Patient TargetsNo targets recorded. Patient InstructionsNo instructions recorded. Reason for Referral General Surgeon Referral for Biliary colic Referring Physician: Jeremi Lim, [employer] OPERATOR, Encounter Date: 02/09/2025 Results Created Date Observation Date Name Description Value Unit Range Abnormal Flag Note LastModifiedBy Organization Detail LastModifiedTime 12/04/1912/03/2024 URIC ACID uric acid 6.0 mg/dL 2.3-6. 6 Not Available [facility] (Lab) [address], [place], [address], 12/04/2024 04:39:11 12/04/1912/03/2024 CBC W/DIF F WBC 8.1 10'3/ uL 3.5-10 .5 Not Available [facility] (Lab) [address], [place], [address], 12/04/2024 04:39:12 12/04/19 25 12/03/2024 CBC W/DIF F RBC 4.42 10'6/ uL (based on docume nted legal sex) 3.80-5 .20 Not Available [facility] (Lab) [address], [place], [address], 12/04/2024 04:39:12 12/04/19 25 12/03/2024 CBC W/DIF F HGB 11.1 g/dL (based on docume nted legal sex) 11.6-1 5.4 low Not Available [facility] (Lab) [address], [place], [address], 12/04/2024 04:39:12 12/04/1912/03/2024 CBC W/DIF F HCT 35.0 % (based on docume nted legal sex) 34.0-4 5.0 Not Available [facility] (Lab) [address], [place], [address], 12/04/2024 04:39:12 12/04/19 25 12/03/2024 CBC W/DIF F MCV 79.2 fL 80.0-9 9.0 low Not Available [facility] (Lab) [address], [place], [address], 12/04/2024 04:39:12 12/04/19 25 12/03/2024 CBC W/DIF F MCH 25.1 pg 27.0-3 4.0 low Not Available [facility] (Lab) [address], [place], [address], 12/04/2024 04:39:12 12/04/19 25 12/03/2024 CBC W/DIF F MCHC 31.7 g/dL 32.0-3 5.5 low Not Available [facility] (Lab) [address], [place], [address], 12/04/2024 04:39:12 12/04/1912/03/2024 CBC W/DIF F RDW 17.3 % 11.0-1 5.0 high Not Available [facility] (Lab) [address], [place], [address], 12/04/2024 04:39:12 12/04/1912/03/2024 CBC W/DIF F plt 268 10'3/ uL 150-40 0 Not Available [facility] (Lab) [address], [place], [address], 12/04/2024 04:39:12 12/04/19 25 12/03/2024 CBC W/DIF F MPV 12.8 fL 8.8-12 .1 high Not Available [facility] (Lab) [address], [place], [address], 12/04/2024 04:39:12 12/04/1912/03/2024 CBC W/DIF F NRBC's 0.0 % 0.0 Not Available [facility] (Lab) [address], [place], [address], 12/04/2024 04:39:12 12/04/19 25 12/03/2024 CBC W/DIF F absolute NRBCs 0.0 10'3/ uL no refere nce range establ ished Not Available [facility] (Lab) [address], [place], [address], 12/04/2024 04:39:12 12/04/19 25 12/03/2024 CBC W/DIF F neutrophils 70.6 % 34.0-7 3.0 Not Available [facility] (Lab) [address] [facility], [place], [address], 12/04/2024 04:39:12 12/04/19 25 12/03/2024 CBC W/DIF F lymphocytes 18.9 % 15.0-5 0.0 Not Available [facility] (Lab) [address] [facility], [place], [address], 12/04/2024 04:39:12 12/04/19 25 12/03/2024 CBC W/DIF F monocytes 9.2 % 1.0-15 .0 Not Available [facility] (Lab) [address] [facility], [place], [address], 12/04/2024 04:39:12 12/04/19 25 12/03/2024 CBC W/DIF F eosinophils 0.9 % 0.0-8. 0 Not Available [facility] (Lab) [address] [facility], [place], [address], 12/04/2024 04:39:12 12/04/19 25 12/03/2024 CBC W/DIF F basophils 0.2 % 0.0-2. 0 Not Available [facility] (Lab) [address] [facility], [place], [address], 12/04/2024 04:39:12 12/04/19 25 12/03/2024 CBC W/DIF F immature granulocytes 0.2 % no define d refere nce range Immat ure Granu locyt es (IG) repre sents autom ated enume ratio n of Metam yeloc ytes, Myelo cytes and Promy elocy prerna when IG is < 5%. Blast s are not inclu ded in IG and repor kristie separ ately if prese nt. Not Available [facility] (Lab) [address] [facility], [place], [address], 12/04/2024 04:39:12 12/04/19 25 12/03/2024 CBC W/DIF F absolute neutrophils 5.7 10'3/ uL 1.5-8. 0 Not Available [facility] (Lab) [address] [facility], [place], [address], 12/04/2024 04:39:12 12/04/19 25 12/03/2024 CBC W/DIF F absolute lymphocytes 1.5 10'3/ uL 1.0-4. 0 Not Available [facility] (Lab) [address] [facility], [place], [address], 12/04/2024 04:39:12 12/04/19 25 12/03/2024 CBC W/DIF F absolute monocytes 0.8 10'3/ uL 0.2-1. 0 Not Available [facility] (Lab) [address] [facility], [place], [address], 12/04/2024 04:39:12 12/04/19 25 12/03/2024 CBC W/DIF F absolute eosinophils 0.1 10'3/ uL 0.0-0. 6 Not Available [facility] (Lab) [address] [facility], [place], [address], 12/04/2024 04:39:12 12/04/19 25 12/03/2024 CBC W/DIF F absolute basophils 0.0 10'3/ uL 0.0-0. 3 Not Available [facility] (Lab) [address] [facility], [place], [address], 12/04/2024 04:39:12 12/04/19 25 12/03/2024 CBC W/DIF F absolute immature granulocytes 0.0 10'3/ uL 0.00-0 .10 Refer ence range s for nonbi nary/ inter sex or unspe cifie d gende r patie nts have not been estab lishe d. Shelbie e refer to the follo wing table for range s estab lishe d for cisge nder patie nts and evalu ate in the clini arjun esther xt of the indiv idual patie nt: https ://kole ortiz book. nm.or g/gen jaramillox Not Available [facility] (Lab) [address] [facility], [place], [address], 12/04/2024 04:39:12 12/04/19 25 12/03/2024 CMP(C OMPRE HENSI VE METAB OLIC PANEL ) sodium 134 mmol/ L 133-14 6 Not Available [facility] (Lab) [address] [facility], [place], [address], 12/04/2024 04:39:12 12/04/19 25 12/03/2024 CMP(C OMPRE HENSI VE METAB OLIC PANEL ) potassium 4.2 mmol/ L 3.5-5. 1 Not Available [facility] (Lab) [address] [facility], [place], [address], 12/04/2024 04:39:12 12/04/19 25 12/03/2024 CMP(C OMPRE HENSI VE METAB OLIC PANEL ) chloride 104 mmol/ L 98-107 Not Available [facility] (Lab) [address] [facility], [place], [address], 12/04/2024 04:39:12 12/04/19 25 12/03/2024 CMP(C OMPRE HENSI VE METAB OLIC PANEL ) carbon dioxide 23 mmol/ L 21-31 Not Available [facility] (Lab) [address] [place], [address], 12/04/2024 04:39:12 12/04/19 25 12/03/2024 CMP(C OMPRE HENSI VE METAB OLIC PANEL ) anion gap 7 mmol/ L 4-13 Not Available [facility] (Lab) [address] [place], [address], 12/04/2024 04:39:12 12/04/19 25 12/03/2024 CMP(C OMPRE HENSI VE METAB OLIC PANEL ) blood urea nitrogen 7 mg/dL 7-25 Not Available [facility] (Lab) [address] [facility], [place], [address], 12/04/2024 04:39:12 12/04/19 25 12/03/2024 CMP(C OMPRE HENSI VE METAB OLIC PANEL ) creatinine 0.60 mg/dL 0.60-1 .30 Not Available [facility] (Lab) [address] [facility], [place], [address], 12/04/2024 04:39:12 12/04/19 25 12/03/2024 CMP(C OMPRE HENSI VE METAB OLIC PANEL ) egfrcr (CKD-epi 2020) >90 mL/mi n/1.7 3_m2 >=60 Not Available [facility] (Lab) [address] [facility], [place], [address], 12/04/2024 04:39:12 12/04/19 25 12/03/2024 CMP(C OMPRE HENSI VE METAB OLIC PANEL ) calcium 9.3 mg/dL 8.3-10 .5 Not Available [facility] (Lab) [address] [facility], [place], [address], 12/04/2024 04:39:12 12/04/19 25 12/03/2024 CMP(C OMPRE HENSI VE METAB OLIC PANEL ) glucose 98 mg/dL 70-100 Not Available [facility] (Lab) [address] [facility], [place], [address], 12/04/2024 04:39:12 12/04/19 25 12/03/2024 CMP(C OMPRE HENSI VE METAB OLIC PANEL ) protein, total 6.0 g/dL 6.4-8. 3 low Not Available [facility] (Lab) [address] [facility], [place], [address], 12/04/2024 04:39:12 12/04/19 25 12/03/2024 CMP(C OMPRE HENSI VE METAB OLIC PANEL ) albumin 3.5 g/dL 3.5-5. 0 Not Available [facility] (Lab) [address] [facility], [place], [address], 12/04/2024 04:39:12 12/04/19 25 12/03/2024 CMP(C OMPRE HENSI VE METAB OLIC PANEL ) ALT 11 units /L 9-43 Not Available [facility] (Lab) [address] [facility], [place], [address], 12/04/2024 04:39:12 12/04/19 25 12/03/2024 CMP(C OMPRE HENSI VE METAB OLIC PANEL ) alkaline phosphatase 204 units /L 34-104 high Not Available [facility] (Lab) [address] [facility], [place], [address], 12/04/2024 04:39:12 12/04/19 25 12/03/2024 CMP(C OMPRE HENSI VE METAB OLIC PANEL ) AST 14 units /L 13-39 Not Available [facility] (Lab) [address] [facility], [place], [address], 12/04/2024 04:39:12 12/04/19 25 12/03/2024 CMP(C OMPRE HENSI VE METAB OLIC PANEL ) bilirubin, total 0.3 mg/dL 0.2-1. 2 Not Available [facility] (Lab) [address] [place], [address], 12/04/2024 04:39:12 12/04/19 25 12/03/2024 PROTE IN/CR EATIN INE RATIO , URINE creatinine, urine 93.6 mg/dL R-No refer ence range estab lishe d for this assay Not Available [facility] (Lab) [address] [place], [address], 12/04/2024 04:39:13 12/04/19 25 12/03/2024 PROTE IN/CR EATIN INE RATIO , URINE protein, urine 14 mg/dL R-No refer ence range estab lishe d for this assay Not Available [facility] (Lab) [address] [facility], [place], [address], 12/04/2024 04:39:13 12/04/19 25 12/03/2024 PROTE IN/CR EATIN INE RATIO , URINE protein/crea tinine ratio, urine 0.15 . No Refer ence Range avail able for Rando m Urine s. A prote in to creat inine ratio of >=0.1 9 is a good predi ctor of signi fican t prote inuri a. A level of <0.14 can rule out signi fican t prote inuri a. Not Available [facility] (Lab) [address] [facility], [place], [address], 12/04/2024 04:39:13 12/04/19 25 12/03/2024 CULTU RE: GROUP B STREP SCREE N, REFLE X SUSCE PTIBI LITY result report SEE RESULT S BELOW abnormal Test: Cultu re: Group B Strep , Refle x Susce ptibi lity ([facility]/ [facility] ) Speci men Sourc e: Vagin a/Rec daryn Speci men Type: Vagin al/Re ctal Speci men Date: 2024 1739 Resul t Date: 2024 1520 Resul t Statu s: Final resul t Abnor mal: Yes Resul ting Lab: [facility] [address] [facility] [address] Tel: CULTU RE ----- ----- ----- --- Posit jessica for Strep tococ cus agala ctiae (Grou p B) (Abno rmal) Clind amyci n = resis tant, eryth romyc in = resis tant. Cefaz moni may be used for intra partu m proph ylaxi s in penic illin -anoop rgic women at low risk, and Vanco mycin is recom jyoti d for women at high risk for anaph ylaxi s. Susce ptibi lity testi ng is not neces pramod for these drugs . Not Available [facility] (Lab) [address], [place], [address], 12/07/2024 16:23:37 12/25/1912/24/2024 CMP/C BC/UR IC ACID WBC 7.7 10'3/ uL 3.5-10 .5 Not Available [facility] (Lab) [address], [place], [address], 12/25/2024 09:20:42 12/25/19 25 12/24/2024 CMP/C BC/UR IC ACID RBC 4.54 10'6/ uL (based on docume nted legal sex) 3.80-5 .20 Not Available [facility] (Lab) [address], [place], [address], 12/25/2024 09:20:42 12/25/1912/24/2024 CMP/C BC/UR IC ACID HGB 11.8 g/dL (based on docume nted legal sex) 11.6-1 5.4 Not Available [facility] (Lab) [address] [facility], [place], [address], 12/25/2024 09:20:42 12/25/1912/24/2024 CMP/C BC/UR IC ACID HCT 38.0 % (based on docume nted legal sex) 34.0-4 5.0 Not Available [facility] (Lab) [address], [place], [address], 12/25/2024 09:20:42 12/25/1912/24/2024 CMP/C BC/UR IC ACID MCV 83.7 fL 80.0-9 9.0 Not Available [facility] (Lab) [address], [place], [address], 12/25/2024 09:20:42 12/25/19 25 12/24/2024 CMP/C BC/UR IC ACID MCH 26.0 pg 27.0-3 4.0 low Not Available [facility] (Lab) [address] [facility], [place], [address], 12/25/2024 09:20:42 12/25/1912/24/2024 CMP/C BC/UR IC ACID MCHC 31.1 g/dL 32.0-3 5.5 low Not Available [facility] (Lab) [address] [facility], [place], [address], 12/25/2024 09:20:42 12/25/19 25 12/24/2024 CMP/C BC/UR IC ACID RDW 21.2 % 11.0-1 5.0 high Not Available [facility] (Lab) [address] [facility], [place], [address], 12/25/2024 09:20:42 12/25/19 25 12/24/2024 CMP/C BC/UR IC ACID plt 218 10'3/ uL 150-40 0 Not Available [facility] (Lab) [address] [facility], [place], [address], 12/25/2024 09:20:42 12/25/19 25 12/24/2024 CMP/C BC/UR IC ACID MPV 14.0 fL 8.8-12 .1 high Not Available [facility] (Lab) [address] [facility], [place], [address], 12/25/2024 09:20:42 12/25/1912/24/2024 CMP/C BC/UR IC ACID NRBC's 0.0 % 0.0 Not Available [facility] (Lab) [address] [facility], [place], [address], 12/25/2024 09:20:42 12/25/1912/24/2024 CMP/C BC/UR IC ACID absolute NRBCs 0.0 10'3/ uL no refere nce range establ ished Not Available [facility] (Lab) [address] [place], [address], 12/25/2024 09:20:42 12/25/19 25 12/24/2024 CMP/C BC/UR IC ACID neutrophils 78.6 % 34.0-7 3.0 high Not Available [facility] (Lab) [address] [facility], [place], [address], 12/25/2024 09:20:42 12/25/19 25 12/24/2024 CMP/C BC/UR IC ACID lymphocytes 15.0 % 15.0-5 0.0 Not Available [facility] (Lab) [address] [facility], [place], [address], 12/25/2024 09:20:42 12/25/19 25 12/24/2024 CMP/C BC/UR IC ACID monocytes 5.6 % 1.0-15 .0 Not Available [facility] (Lab) [address] [facility], [place], [address], 12/25/2024 09:20:42 12/25/19 25 12/24/2024 CMP/C BC/UR IC ACID eosinophils 0.4 % 0.0-8. 0 Not Available [facility] (Lab) [address] [facility], [place], [address], 12/25/2024 09:20:42 12/25/19 25 12/24/2024 CMP/C BC/UR IC ACID basophils 0.3 % 0.0-2. 0 Not Available [facility] (Lab) [address] [facility], [place], [address], 12/25/2024 09:20:42 12/25/19 25 12/24/2024 CMP/C BC/UR IC ACID immature granulocytes 0.1 % no define d refere nce range Immat ure Granu locyt es (IG) repre sents autom ated enume ratio n of Metam yeloc ytes, Myelo cytes and Promy elocy prerna when IG is < 5%. Blast s are not inclu ded in IG and repor kristie separ ately if prese nt. Not Available [facility] (Lab) [address] [facility], [place], [address], 12/25/2024 09:20:42 12/25/19 25 12/24/2024 CMP/C BC/UR IC ACID absolute neutrophils 6.1 10'3/ uL 1.5-8. 0 Not Available [facility] (Lab) [address] [facility], [place], [address], 12/25/2024 09:20:42 12/25/1912/24/2024 CMP/C BC/UR IC ACID absolute lymphocytes 1.2 10'3/ uL 1.0-4. 0 Not Available [facility] (Lab) [address] [facility], [place], [address], 12/25/2024 09:20:42 12/25/1912/24/2024 CMP/C BC/UR IC ACID absolute monocytes 0.4 10'3/ uL 0.2-1. 0 Not Available [facility] (Lab) [address] [facility], [place], [address], 12/25/2024 09:20:42 12/25/1912/24/2024 CMP/C BC/UR IC ACID absolute eosinophils 0.0 10'3/ uL 0.0-0. 6 Not Available [facility] (Lab) [address] [facility], [place], [address], 12/25/2024 09:20:42 12/25/1912/24/2024 CMP/C BC/UR IC ACID absolute basophils 0.0 10'3/ uL 0.0-0. 3 Not Available [facility] (Lab) [address] [facility], [place], [address], 12/25/2024 09:20:42 12/25/1912/24/2024 CMP/C BC/UR IC ACID absolute immature granulocytes 0.0 10'3/ uL 0.00-0 .10 Refer ence range s for nonbi nary/ inter sex or unspe cifie d gende r patie nts have not been estab lishe d. Pleas e refer [facility] for range s estab kyra d for cisge nder patie nts and evalu ate in the clini arjun esther xt of the indiv idual patie nt: https ://kole ortiz book. nm.or g/gen derx Not Available [facility] (Lab) [address], [place], [address], 12/25/2024 09:20:42 12/25/19 25 12/24/2024 CMP/C BC/UR IC ACID sodium 135 mmol/ L 133-14 6 Not Available [facility] (Lab) [address], [place], [address], 12/25/2024 09:20:42 12/25/19 25 12/24/2024 CMP/C BC/UR IC ACID potassium 4.2 mmol/ L 3.5-5. 1 Not Available [facility] (Lab) [address], [place], [address], 12/25/2024 09:20:42 12/25/19 25 12/24/2024 CMP/C BC/UR IC ACID chloride 103 mmol/ L 98-107 Not Available [facility] (Lab) [address] [facility], [place], [address], 12/25/2024 09:20:42 12/25/19 25 12/24/2024 CMP/C BC/UR IC ACID carbon dioxide 21 mmol/ L 21-31 Not Available [facility] (Lab) [address] [place], [address], 12/25/2024 09:20:42 12/25/19 25 12/24/2024 CMP/C BC/UR IC ACID anion gap 11 mmol/ L 4-13 Not Available [facility] (Lab) [address], [place], [address], 12/25/2024 09:20:42 12/25/19 25 12/24/2024 CMP/C BC/UR IC ACID blood urea nitrogen 12 mg/dL 7-25 Not Available [facility] (Lab) [address], [place], [address], 12/25/2024 09:20:42 12/25/1912/24/2024 CMP/C BC/UR IC ACID creatinine 0.75 mg/dL 0.60-1 .30 Not Available [facility] (Lab) [address], [place], [address], 12/25/2024 09:20:42 12/25/19 25 12/24/2024 CMP/C BC/UR IC ACID egfrcr (CKD-epi 2020) >90 mL/mi n/1.7 3_m2 >=60 Not Available [facility] (Lab) [address], [place], [address], 12/25/2024 09:20:42 12/25/19 25 12/24/2024 CMP/C BC/UR IC ACID calcium 9.5 mg/dL 8.3-10 .5 Not Available [facility] (Lab) [address], [place], [address], 12/25/2024 09:20:42 12/25/1912/24/2024 CMP/C BC/UR IC ACID glucose 83 mg/dL 70-100 Not Available [facility] (Lab) [address] [facility], [place], [address], 12/25/2024 09:20:42 12/25/1912/24/2024 CMP/C BC/UR IC ACID protein, total 5.9 g/dL 6.4-8. 3 low Not Available [facility] (Lab) [address] [facility], [place], [address], 12/25/2024 09:20:42 12/25/19 25 12/24/2024 CMP/C BC/UR IC ACID albumin 3.4 g/dL 3.5-5. 0 low Not Available [facility] (Lab) [address] [facility], [place], [address], 12/25/2024 09:20:42 12/25/19 25 12/24/2024 CMP/C BC/UR IC ACID ALT 10 units /L 9-43 Not Available [facility] (Lab) [address] [facility], [place], [address], 12/25/2024 09:20:42 12/25/19 25 12/24/2024 CMP/C BC/UR IC ACID alkaline phosphatase 228 units /L 34-104 high Not Available [facility] (Lab) [address] [facility], [place], [address], 12/25/2024 09:20:42 12/25/19 25 12/24/2024 CMP/C BC/UR IC ACID AST 14 units /L 13-39 Not Available [facility] (Lab) [address] [facility], [place], [address], 12/25/2024 09:20:42 12/25/19 25 12/24/2024 CMP/C BC/UR IC ACID bilirubin, total 0.5 mg/dL 0.2-1. 2 Not Available [facility] (Lab) [address] [facility], [place], [address], 12/25/2024 09:20:42 12/25/19 25 12/24/2024 CMP/C BC/UR IC ACID uric acid 7.4 mg/dL 2.3-6. 6 high Not Available [facility] (Lab) [address] [place], [address], 12/25/2024 09:20:42 12/25/19 25 12/24/2024 PROTE IN/CR EATIN INE RATIO , URINE creatinine, urine 156.2 mg/dL R-No refer ence range estab lishe d for this assay Not Available [facility] (Lab) [address] [facility], [place], [address], 12/25/2024 09:20:43 12/25/19 25 12/24/2024 PROTE IN/CR EATIN INE RATIO , URINE protein, urine 23 mg/dL R-No refer ence range estab lishe d for this assay Not Available [facility] (Lab) [address] [facility], [place], [address], 12/25/2024 09:20:43 12/25/19 25 12/24/2024 PROTE IN/CR EATIN INE RATIO , URINE protein/crea tinine ratio, urine 0.15 . No Refer ence Range avail able for Rando m Urine s. A prote in to creat inine ratio of >=0.1 9 is a good predi ctor of signi fican t prote inuri a. A level of <0.14 can rule out signi fican t prote inuri a. Not Available [facility] (Lab) [address] [facility], [place], [address], 12/25/2024 09:20:43 11/06/19 25 11/05/2024 US, obste tric, follo w-up No observ ation record ed. [email or web address] [place] [address], [place], [address], 11/05/2024 16:49:36 11/06/1911/05/2024 US, obste tric, follo w-up No observ ation record ed. Etta [id number], [place], [address], 11/11/2024 08:39:31 12/04/19 25 12/03/2024 US, obste tric, follo w-up No observ ation record ed. [email or web address] [place] [address], [place], [address], 12/03/2024 18:52:18 12/04/1912/03/2024 US, obste tric, follo w-up No observ ation record ed. Etta [address], [place], [address], 12/09/2024 12:27:48 Result Notes None recorded. Problems Name Problem SNOMED Code Status Onset Date Resolution Date Notes Provider Name and Address Organization Details Recorded Time Pregnanc y 28617324 Completed 202401/02/2025 Lucillesebastian Galvandorota [facility], [facility] 5 15:54:04 Placenta circumva llata [id number] Completed 2024 32 wk growth Tianna Rosen [facility] 5 22:55:48 Ashu alanis [id number] Active [address] lipscomb office number to schedule post delivery Tnoja Mayer CNM [address], [place], [address], [facility] 5 13:27:29 Ashu alanis [id number] Completed [address] lipscomb office number to schedule post delivery Tonja Mayer CNM [address], [place], [address], [facility] 5 13:27:29 Administ ration of human anti-D immunogl obulin needed Completed 2024 rhogam received 10/08/24 Bhavya Pal [facility] 5 07:51:34 Administ ration of human anti-D immunogl obulin needed Active 2024 rhogam received 10/08/24 Bhavya Pal [facility] 5 07:51:34 Gestatio nal diabetes mellitus [id number] Completed 2024 Checking bs QID , serial growth us, DT referral faxed to [facility] 10/15 Tianna Rosen [facility] 12:49:02 Anemia of pregnanc y [id number] Completed 2024 Iron infusion s weekly x 4 doses order faxed 10/15 Tianna Rosen [facility] 5 12:49:18 Problem Notes None recorded. Procedures Surgical History Date Name Laterality Status Provider Name and Address Organization Details Recorded Time 4 extraction of wisdom tooth completed Bhavya Pal [facility] 08/17/2024 10:09:10 9 tonsilectomy/a denoids completed Sophie Abrams [facility] 11/28/2023 14:06:37 Imaging Results None recorded. [...] Available Not Available Not Available hydrocodone 5 mg-acetamin ophen 325 mg tablet TAKE 1 - 2 TABLET ORALLY EVERY 6 HOURS NEEDED FOR PAIN 02/09 completed Not Available Not Available Not Available ondansetron HCl 4 mg tablet 12/20 completed Not Available Not Available Not Available terconazole 0.8 % vaginal cream Insert 1 applicato rful every day by vaginal route for 3 days. 11/29 completed Not Available Not Available Not Available metronidazo le 500 mg tablet TAKE 1 TABLET BY MOUTH TWICE A DAY FOR 7 DAYS 01/21 completed Not Available Not Available Not Available acetaminoph en 300 mg-codeine 30 mg tablet TAKE 1 TABLET BY MOUTH EVERY 8 HOURS NEEDED FOR PAIN 11/27 completed Not Available Not Available Not Available ondansetron 8 mg disintegrat ing tablet Place 1 tablet twice a day by transling ual route. 05/21 completed Not Available Not Available Not Available cephalexin 500 mg capsule 12/20 completed Not Available Not Available Not Available Microlet Lancet USE TO TEST BLOOD SUGAR 4 TIMES A DAY, ONCE FASTING AND 1 HOUR POST-MEAL S 02/09 completed Not Available Not Available Not Available 02/09 completed Not Available Not Available Not Available Xulane 150 mcg-35 mcg/24 hr transdermal patch Apply 1 patch every week by transderm al route. 2024 active Not Available Not Available Not Avai lable Contour Plus Test Strip USE TO TEST BLOOD SUGAR 4 TIMES A DAY, ONCE FASTING AND 1 HOUR POST-MEAL S 02/09 completed Not Available Not Available Not Available Contour Plus Blue Meter USE TO TEST BLOOD SUGAR 4 TIMES A DAY *FASTING & 1 HOUR POST MEALS 02/09 completed Not Available Not Available Not Available Vitals Date Recorded Body weight Body mass index (BMI) Body height Systolic And Diastolic Provider Name and Address Organization Details Last Updated DateTime 12/03/2024 62517.403 71 g 34.6 kg/m2 154.94 cm 138/84 mm[Hg] Saritha [facility] 12/03/2024 18:13:07 Date Recorded Body height Body mass index (BMI) Body weight Systolic And Diastolic Provider Name and Address Organization Details Last Updated DateTime 12/17/2024 154.94 cm 35 kg/m2 51657.03 g 124/85 mm[Hg] Elysia Simin [facility] 12/17/2024 12:38:56 Date Recorded Body height Body mass index (BMI) Body weight Systolic And Diastolic Provider Name and Address Organization Details Last Updated DateTime 12/24/2024 154.94 cm 35.1 kg/m2 34603.18 g 144/87 mm[Hg] Saritha [facility] 12/24/2024 12:32:20 Date Recorded Body height Body mass index (BMI) Body weight Systolic And Diastolic Provider Name and Address Organization Details Last Updated DateTime 01/02/2025 154.94 cm 31.7 kg/m2 33861.52 g 150/95 mm[Hg] Lucille Arreola [facility] 01/02/2025 15:52:24 Date Recorded Body height Body mass index (BMI) Body weight Systolic And Diastolic Provider Name and Address Organization Details Last Updated DateTime 02/09/2025 154.94 cm 31 kg/m2 16599.15 g 118/78 mm[Hg] Ingrid Walker [facility] 02/09/2025 12:13:35 Social History Question Answer Notes LastModified by Organizat ion Details LastModified Time Tobacco Smoking Status Former Smoker Bhavya Pal chelly, [facility] 08/17/2024 10:08:39 If You Are , What Was Your Level Of Alcohol Consumption Prior To ? None [email or web address] Information not available 08/17/2024 Are You Blind [...] Or The Highest Degree You Have Received? [id number] Information not available 11/28/2023 Are There Any Guns Present In Your Home? No Information not available 11/28/2023 Do You Use Protection During Sex? No Information not available 11/28/2023 Do You Use Your Seat Belt Or Car Seat Routinely? Yes Information not available 11/28/2023 Are You Sexually Active? Yes Information not available 05/21/2024 Do You Have Smoke And Carbon Monoxide Detectors In Your Home? No Information not available 11/28/2023 How Much Tobacco Do You Smoke? No Information not available 11/28/2023 Do You Use Sunscreen Routinely? Yes Information not available 11/28/2023 Have You Used IV Drugs? No Information not available 11/28/2023 Do You Have Difficulty Walking Or Climbing Stairs? No [email or web address] Information not available 08/17/2024 Sex: Unknown Functional Status Question Answer Note LastModified by Organizat ion Details LastModified Time Do you use any illicit or recreational drugs? No Information not available 11/28/2023 Do you or have you ever used any other forms of tobacco or nicotine? No [email or web address] Information not available 08/17/2024 What is your level of alcohol consumption? None Information not available 11/28/2023 Are you able to walk independently without assistance or assistive devices? [email or web address] Information not available 11/28/2023 Are you able to care for yourself independently? Yes [email or web address] Information not available 05/21/2024 Do you have difficulty dressing, bathing, grooming, or toileting? No [email or web address] Information not available 08/17/2024 What is your exercise level? Occasional Information not available 11/28/2023 Mental Status Question Answer Note LastModified by Organization D etails LastModified Time Do you feel stressed (tense, restless, nervous, or anxious, or unable to sleep at night)? [id number] Information not available 11/28/2023 Family History Relationship [...] N Thrombophilias N Gynecological History Statement/Question Response Date of Last Mammogram Flow Moderate Date of LMP 02/09/2025 On BCP's at Conception? N Was last menstrual period normal Y STIs/STDs Y HPV Vaccine Y Duration of Flow (days) 4 Current Control Method None Are cycles usually normal Y Date of Last Colonoscopy Frequency of Cycle (Q days) 35 Sexually Active? Y Date of DEXA bone scan Age of first menstrual cycle 9 Date of Last Pap Smear Sexual Problems? N Desired Control Method Patch LMP Definite Obstetrics History GPAL:G 2 P 1 0 1 1 Type Value Full Term 1 Spontaneous 1 Living 1 Total 2 Past Encounters Encounter ID Performer Location Encounter Start Date Encounter Closed Date Diagnosis/Indication Diagnosis SNOMED-CT Code Diagnosis ICD10 Code Diagnosis IMO Codes Diagnosis Note JEREMI LIM MD [facility] [address],[place] [address] 11/28/2023 14:01:20 11/28/2023 15:08:05 Nausea and vomiting 44246386 R11.2 - morning sickness 2/2 early - improved s/p zofran and IV fluids in ER yesterday- able to tolerate PO intake today- discussed warning signs- will send refill of zofran to use PRN [id number] Milton Bustamante MD [facility] [address],[place] [address] 12/03/2023 15:14:49 12/03/2023 16:20:52 Threatened miscarriage 83888110 O20.0 Z3A.01 [id number] Milton Bustamante MD [facility] [address],[place] [address] 12/11/2023 10:01:42 12/11/2023 10:25:41 Threatened miscarriage 20118621 O20.0 Z3A.01 [id number] JEREMI LIM MD [facility] [address],[place] [address] 12/18/2023 11:01:18 12/18/2023 12:03:28 [id number] JEREMI LIM MD [facility] [address],[place] [address] 12/21/2023 11:54:32 12/21/2023 12:49:37 test positive 882362151 Z32.01 1. Exam today within normal limits.2. [...] screening: desires . Candidiasis of vagina 72 974091 B37.31 - swab sent today- Diflucan sent [id number] Milton Bustamante MD [facility] [address],[place] [address] 01/22/2024 15:57:08 01/22/2024 16:26:02 Missed miscarriage 40927237 O02.1 Z3A.00 [id number] JEREMI LIM MD [facility] [address],[place] [address] 01/22/2024 16:22:27 01/22/2024 17:09:02 Miscarriage in first trimester 56665590 O03.9 - spontaneou s cramping and heavy [...] to clinic if bleeding or pain worsens [id number] Milton Bustamante MD [facility] [address],[place] [address] 05/05/2024 12:00:54 05/05/2024 12:27:43 Uterine size for dates discrepancy 654183336 O26.849 Z3A.01 [id number] Milton Bustamante MD [facility] [address],[place] [address] 05/20/2024 17:20:11 05/20/2024 18:04:09 [id number] JEREMI LIM MD [facility] [address],[place] [address] 05/21/2024 11:41:39 05/21/2024 14:20:13 test positive 006938602 Z32.01 1. Exam today within normal limits.2. [...] desires at 10 weeks, papers given today. [id number] Milton Bustamante MD [facility] [address],[place] [address] 06/11/2024 17:26:18 06/12/2024 08:11:28 screening 222423259 Z36.82 Z3A.11 [id number] JEREMI LIM MD [facility] [address],[place] [address] 06/18/2024 11:38:16 06/19/2024 05:42:16 Gestation period, 12 weeks 72263302 Z3A.12 Routine an tenatal care 509668554 Z34.91 [id number] JEREMI LIM MD [facility] [address],[place] [address] 07/16/2024 10:16:50 07/16/2024 11:13:27 Intermittent palpitations 724221061 R00.2 - with MSK chest pain, 3 episodes during - will order Holter monitoring (at least 7-14 days) if episode recurs Gestation period, 16 weeks 25481418 Z3A.16 [id number] Milton Bustamante MD [facility] [address],[place] [address] 08/12/2024 10:57:55 08/12/2024 12:11:22 Screening status 309072691 Z36.3 Z3A.20 3396116484 [id number] Tonja Mayer [facility] [address],[place] [address] 08/12/2024 10:58:10 08/12/2024 12:32:59 Gestation period, 20 weeks 66116514 Z3A.20 8380046 continue vitamin [id number] Tonja Mayer [facility] [address],[place] [address] 09/10/2024 12:46:34 09/10/2024 13:33:22 Gestation period, 24 weeks 704597721 Z3A.24 3315447 cont pnv [id number] Tonja Mayer [facility] [address],[place] [address] 10/08/2024 10:03:38 10/08/2024 10:41:33 Gestation period, 28 weeks 33732231 Z3A.28 8687014 cont pnv [id number] JEREMI LIM MD [facility] [address],[place] [address] 10/22/2024 09:58:18 10/22/2024 10:27:41 Gestational diabetes mellitus 88203241 O24.410 94107241 - well controlled with diet- q4 week growth US Anemia of 2734 2003 O99.019 31544157 - Hgb 9.5 at 28 weeks- weekly Fe infusions scheduled x4 Gestation period, 30 weeks 05885786 Z3A.30 7742998 - continue PNV [id number] Milton Bustamante MD [facility] [address] [place] [address] 11/05/2024 10:06:13 11/05/2024 10:45:02 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 Z3A.32 8830752 [id number] [facility] [address] [place] [address] 11/05/2024 10:06:23 11/05/2024 10:57:06 Gestation period, 32 weeks 7565781 Z3A.32 6108338 [id number] [facility] [address],[place] [address] 11/19/2024 09:58:54 11/19/2024 10:38:32 Gestation period, 34 weeks 75604367 Z3A.34 1297897 cont pnv Candidiasis of vagina 72 072065 B37.31 83051 [id number] Milton Bustamante MD [facility] [address],[place] [address] 12/03/2024 17:23:53 12/04/2024 09:08:47 Gestational diabetes mellitus 08426885 O24.410 O43.113 Z3A.36 94499667 [id number] [facility] [address],[place] [address] 12/03/2024 17:24:11 12/04/2024 01:23:19 Gestation period, 36 weeks 35276839 Z3A.36 3901909 cont pnv [id number] JEREMI LIM MD [facility] [address],[place] [address] 12/17/2024 12:19:09 12/17/2024 15:57:07 Anemia of 25332629 O99.019 76361734 - Hgb 9.5 at 28 weeks, improved to 11.1 on 12/03 Gestationa l diabetes mellitus 86162889 O24.410 25098632 - well controlled with diet- q4 week growth US Gestation period, 38 weeks 87372856 Z3A.38 8432231 - continue PNV [id number] [facility] [address],[place] [address] 12/24/2024 12:22:54 12/24/2024 12:59:40 Gestation period, 39 weeks 37448751 Z3A.39 0879771 cont pnv [id number] JEREMI LIM MD [facility] [address],[place] [address] 01/02/2025 15:43:01 01/02/2025 16:29:07 care status 639201313 Z39.2 4175548 S/p c section on . Incision well-heale d without any signs of infection2 . Family planning options discussed. She will continue to abstain from intercours e until her 6wk visit.3. RTC 4wks for post-partu m check Hypertensi on AND/OR vomiting complicating childbirth AND/OR puerperium 638666767 O13.9 82773878 - asymptomat ic- BP elevated today, will start home BP monitoring - will call next week to review BP [id number] JEREMI LIM MD [facility] [address] [address] 02/09/2025 11:54:01 02/09/2025 14:52:44 care status 915479694 Z39.2 51122 S/p PLTCS 6 weeks ago here today for a visit.1. Patient recovering well2. Plans to continue formula feeding3. Interested in patch for contracept ion at this time. Risks, benefits, and alternativ es reviewed with the patient4. Patient instructed to follow up in 3-6 months for well woman exam unless need arises prior Biliary colic 14129252 K 80.50 9496 - issues with biliary colic since - trying to keep low fat diet however still having attacks- recommend general surgery referral Health Concerns Section Related Observation LastModified by Organization Detai ls LastModified Time None Recorded Concern Status LastModified by Organization Details LastModified Time None Recorded Advance Directives Directive None Recorded Payers Insurance Date Sequence Insurance Name Policy Number Policy Lara Covered Member ID Lara Member ID Guarantor Name 02/13/2025 1 [facility] (MEDICAID HMO) [id number] Agueda Doty [id number] Agueda Doty Notes Date Note Type Note Provider Name and Address Organization Details Recorded Time 12/03/2024 text/html Generic HPI TemplateReported by Patient Tonja Mayer CNM [address], [place], [address], [facility] 12/03/2024 18:25:31 12/17/2024 text/html Generic HPI TemplateReported by Patient JEREMI LIM MD [address], [place], [address], [facility] 12/17/2024 15:52:42 12/24/2024 text/html Generic HPI TemplateReported by Patient Tonja MayerASHANTI [address], [place], [address], [facility] 12/24/2024 12:47:32 01/02/2025 text/html ROS as noted in the HPI s/p C/S 12/24. She presents today for her incision check. Her postop course has been unremarkable. She has minimal spotting, denies pain, fever or any other concerning symptoms. She is formula feeding and her baby is doing well. Her mood is good. JEREMI LIM MD [address], [place], [address], [facility] 01/02/2025 16:13:37 02/09/2025 text/html ROS as noted in the HPI S/P PLTCS on 12/26/24 at 39 weeks gestation for failure to descend. was complicated by gestational diabetes and biliary colic. Has been having gallbladder attacks since delivery, sticking with low fat diet. Needs general surgery referral, will send to [facility]. Patient overall feeling well. Patient is formula feeding without problems. Has had a period, started today. Bowel and bladder function are normal. Pap due 2025. Denies any signs or symptoms of depression. Is coping with parenting well. Patient has not been sexually active since delivery. Patient is interested in contraception at this time, would like BC patch. JEREMI LIM MD [address], [place], [address], [facility] 02/09/2025 14:51:14 OBGyn Episode Ob Episode Information Episode Created Date Number of Fetuses Patient Bloodtype Patient rh Status Prepregnancy Weight lbs Domestic Partner Domestic Partner Phone Father Name Can Solderer Status 05/21/19 25 1 CLOSED Fetus Data First Name Last Name Admitted to NICU Weight (g) Sex Living Outcome Pediatric Complications Fetus ID Race Codes Race Delivery Type , Spontane ous [id number] Stu Calculation Initial Stu Date Initial Exam [...] Domestic Partner Domestic Partner Phone Father Name Can Solderer Status 06/18/19 1 A Negative 168 Greg CLOSED Fetus Data First Name Last Name Admitted to NICU Weight (g) Sex Living Outcome Pediatric Complications Fetus ID Race Codes Race Delivery Type Valent deloris 3203.49 35 M true Full Term [id number] Problems Problem Notes Problem Name Start Date End Date Resolution Snomed Code Not e Anemia of 10/14/2024 85722764 Iron infusions weekly x 4 doses order faxed 10/15 Placenta circumvallata 08/13/2024 769110 0 32 wk growth us Gallstone 09/10/[id number] giordano office number to schedule post delivery Administration of human anti-D immunoglobulin needed 10/11/2024 [id number] rhogam received 10/08/24 Gestational diabetes mellitus 10/14/2024 77155216 Checking bs QID , serial growth us, DT referral faxed to [facility] 10/15 Stu Calculation Initial Stu Date Initial Exam Date Initial Exam Provider Initial Ultrasound Date Last Menstrual Period Date Ultra Sound Weeks Gestation 12/27/2024 05/20/2024 [email or web address] 05/20/2024 03/12/2024 8 Eighteen To Twenty Week Stu Update Ultra Sound Date Fundal Height At Umbil Quickening Date Ultra Sound Latest Weeks Gestation Final Stu Confirmed By Final Stu Confirmed Date Final Stu Date Ultra Sound Latest Days Gestation 0 06/19/2024 12/28/19 25 0 Pre- Flowsheet Flowsheet Date 06/18/2024 Cuellar Score Blood Edema Fundus Height Fundus Units Glucose Ketones Leukocytes Nitrite Labor Signs Protein Cervic Dilation Cervic Effacement Cervic Station Type Weight in lbs Pre/Post Dialysis Refused Weight 167.742548483981 BP Diastolic BP Location Tested BP Systolic BP Type 68 L arm 144 sitting Fetus Heart Rate Present A Present Fetus Movement Comments [facility]. Hx of miscarriage in previous [...] Weight in lbs Pre/Post Dialysis Refused Weight 166.305696034764 BP Diastolic BP Location Tested BP Systolic [...] Type Weight in lbs Pre/Post Dialysis Refused 168.955284702537 BP Diastolic BP Location Tested BP Systolic BP Type 83 125 Fetus Heart Rate Present Fetus Movement A Yes Comments Patient is having some BH co ntraction. 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 watching diet, +FM, baby shower last week order for rhogam and gct given Flowsheet Date 10/22/2024 Cuellar Score Blood Edema Fundus Height Fundus Units Glucose Ketones Leukocytes Nitrite Labor Signs Protein Cervic Dilation Cervic Effacement Cervic Station Type Weight in lbs Pre/Post Dialysis Refused Weight 173.294042055296 BP Diastolic BP Location Tested BP Systolic BP Type 76 L arm 119 sitting Fetus Heart Rate Present A 145 Fetus Movement A Yes Comments Doing well, good movem ent. No cramping or bleeding. Blood glucose log reviewed, overall within goal. No issues with gallbladder. Has been compliant wth Fe supplementation, has infusions scheduled weekly x4 weeks. Growth US scheduled for 32 weeks. RTC 2 weeks. Flowsheet Date 11/05/2024 Cuellar Score Blood Edema Fundus Height Fundus Units Glucose Ketones Leukocytes Nitrite Labor Signs Protein Cervic Dilation Cervic Effacement Cervic Station Type Weight in lbs Pre/Post Dialysis Refused BP Diastolic BP Location Tested BP Systolic BP Type Fetus Heart Rate Present Fetus Movement Comments Flowsheet Date 11/05/2024 Cuellar Score Blood Edema Fundus Height Fundus Units Glucose Ketones Leukocytes Nitrite Labor Signs Protein Cervic Dilation Cervic Effacement Cervic Station Type Weight in lbs Pre/Post Dialysis Refused 176.393649293438 BP Diastolic BP Location Tested BP Systolic BP Type 81 L arm 127 sitting Fetus Heart Rate Present Fetus Movement A Yes Comments doing well, +FM, reviewed bl ood sugars, 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, call for preadmit f/u 2 weeks AC 92%, AC 78% Flowsheet Date 11/19/2024 Cuellar Score Blood Edema Fundus Height Fundus Units Glucose Ketones Leukocytes Nitrite Labor Signs Protein Cervic Dilation Cervic Effacement Cervic Station Type Weight in lbs Pre/Post Dialysis Refused Weight 179.529524061009 BP Diastolic BP Location Tested BP Systolic BP Type 78 L arm 125 sitting Fetus Heart Rate Present Fetus Movement A Yes Comments +FM doing well, terconazole to pharmacy, reviewed blood sugars, had one day that was elevated otherwise wnl, call for preadmit f/u 2 weeks, started iron ifusions Flowsheet Date 12/03/2024 Cuellar Score Blood Edema Fundus Height Fundus Units Glucose Ketones Leukocytes Nitrite Labor Signs Protein Cervic Dilation Cervic Effacement Cervic Station Type Weight in lbs Pre/Post Dialysis Refused BP Diastolic BP Location Tested BP Systolic BP Type Fetus Heart Rate Present Fetus Movement Comments Flowsheet Date 12/03/2024 Cuellar Score Blood Edema Fundus Height Fundus Units Glucose Ketones Leukocytes Nitrite Labor Signs Protein Cervic Dilation Cervic Effacement Cervic Station Type Weight in lbs Pre/Post Dialysis Refused 183.573357401876 BP Diastolic BP Location Tested BP Systolic BP Type 84 L arm 138 sitting Fetus Heart Rate Present Fetus Movement A Yes Comments per pt blood sugars wnl exce pt occasional breakfasts, efw 59% +FM, AC 70%, education and precautions f/u one week Flowsheet Date 12/17/2024 Cuellar Score Blood Edema Fundus Height Fundus Units Glucose Ketones Leukocytes Nitrite Labor Signs Protein Cervic Dilation Cervic Effacement Cervic Station Type Weight in lbs Pre/Post Dialysis Refused Weight 185.937071256521 BP Diastolic BP Location Tested BP Systolic BP Type 85 L arm 124 sitting Fetus Heart Rate Present A 140 Fetus Movement A Yes Comments doing well, good movem ent. Some BH contractions. No bleeding or LOF. Blood sugar within goal overall. Induction 12/29, scheduled. SVE 0.5cm. RTC 1 week. Flowsheet Date 12/24/2024 Cuellar Score Blood Edema Fundus Height Fundus Units Glucose Ketones Leukocytes Nitrite Labor Signs Protein Cervic Dilation Cervic Effacement Cervic Station 1cm 90% -2 Type Weight in lbs Pre/Post Dialysis Refused Weight 186.364053098304 BP Diastolic BP Location Tested BP Systolic BP Type 87 L arm 144 sitting Fetus Heart Rate Present A 146 Fetus Movement A Yes Comments +FM, education and precautio ns, IOL next week f/u IOL, reviewed blood sugars all wnl Flowsheet Date 01/02/2025 Cuellar Score Blood Edema Fundus Height Fundus Units Glucose Ketones Leukocytes Nitrite Labor Signs Protein Cervic Dilation Cervic Effacement Cervic Station Type Weight in lbs Pre/Post Dialysis Refused Weight 168.525041099631 BP Diastolic BP Location Tested BP Systolic BP Type 95 L arm 150 sitting Fetus Heart Rate Present Fetus Movement Comments Menstrual History Last Menstrual Date Menses Monthly On Bcp Conception Prior Menses Frequency Hcg Plus Date Menarche Onset Age 1103/12/2024 Delivery Information Delivery Date Delivery Type Labor Anesthesia Weeks Gestation Incision Type Labor Labor Length Hrs Delivered By Post Complications Tubal Sterilization Discharge Date Comments 5 Sponta neous 39.6 false Discharge Information Feeding Method Contraceptive Method Maternal HG B and HCT Levels Bottle
--- OUTSIDE RECORDS SUMMARY | 2025-04-01 00:46 | XMS_ITS | Clinical Summary ---
Author Organization [facility] Address [address] [place] [address] Care Team Providers Care Manager Systems Name Role Phone Unavailable Primary Care Provider Unavailabl e Source Comments [facility],non-owned Affiliates and Associated Physician Practices is amultiple site organization consisting of ambulatory clinics and hospital sitesin [place], [place], [place] and [place]. This disclosure is being madepursuant to the Care Everywhere program and may not contain all information available regarding this patient. 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
--- OUTSIDE RECORDS SUMMARY | 2025-04-01 00:47 | XMS_ITS | Continuity of Care Document ---
Author Organization [facility], [facility] Address [address] [place] [address] Assessment No assessment recorded. Plan of Treatment Reminders Order Date Submit Date Provider Last Modified By Organization Details Last Modified Time Details Appointments None record ed. Lab None record ed. Referral None record ed. Procedures None record ed. Surgeries None record ed. Imaging None record ed. Medication Orders None record ed. Patient TargetsNo [...] t Abnor mal: No Resul ting Lab: [facility] [address] [facility] [address] Tel: [phone] CULTU RE ----- ----- ----- --- Cultu re resul t (>=3 organ isms prese nt) indic ates possi ble conta minat ion. Repea t cultu re if sympt oms indic ate. Not Available [facility] (Lab) [address] [facility], [place], [address], 06/20/2024 08:08:05 06/18/1906/18/2024 drug scree n, urine Amphetamines : negati ve Not Available [facility] [address], [place], [address], 06/18/2024 15:05:47 06/18/19 25 06/18/2024 drug scree n, urine Cannabinoids : positi ve Not Available [facility] [address], [place], [address], 06/18/2024 15:05:47 06/18/19 25 06/18/2024 drug scree n, urine Cocaine: negati ve Not Available [facility] [address], [place], [address], 06/18/2024 15:05:47 06/18/19 25 06/18/2024 drug scree n, urine Opiates: negati ve Not Available [facility] [address], [place], [address], 06/18/2024 15:05:47 06/18/19 25 06/18/2024 drug scree n, urine Phenocyclidi ne: negati ve Not Available [facility] [address], [place], [address], 06/18/2024 15:05:47 06/18/19 25 06/18/2024 drug scree n, urine Barbiturates : negati ve Not Available [facility] [address], [place], [address], 06/18/2024 15:05:47 06/18/19 25 06/18/2024 drug scree n, urine Benzodiazepi francisco javier: negati ve Not Available [facility] [address], [place], [address], 06/18/2024 15:05:47 06/18/19 25 06/18/2024 drug scree n, urine Ethanol: negati ve Not Available [facility] [address], [place], [address], 06/18/2024 15:05:47 06/18/19 25 06/18/2024 drug scree n, urine Hallucinogen s: negati ve Not Available [facility] [address], [place], [address], 06/18/2024 15:05:47 06/18/19 25 06/18/2024 drug scree n, urine Inhalants: negati ve Not Available [facility] [address], [place], [address], 06/18/2024 15:05:47 06/18/19 25 06/18/2024 drug scree n, urine Anabolic Steroids: negati ve Not Available [facility] [address], [place], [address], 06/18/2024 15:05:47 10/09/19 25 10/08/2024 GTT - GESTA JUAN CARLOS L SCREE N, ACOG OB glucose, 1 hour screen 145 mg/dL 70-135 high Not Available [facility] (Lab) [address], [place], [address], 10/09/2024 09:14:33 10/09/19 25 10/08/2024 HIV 1/2 ANTIG EN/AN TIBOD Y, REFLE X CONFI RMATI ON HIV antigen/anti body Nonrea ctive nonrea ctive HIV-1 antig en and HIV-1 /HIV- 2 antib odies were not detec kristie. No labor atory evide nce of HIV infec tion. Not Available [facility] (Lab) [address], [place], [address], 10/09/2024 09:14:34 10/09/19 25 10/08/2024 HEMOG LOBIN (HGB) HGB 9.7 g/dL (based on docume nted legal sex) 11.6-1 5.4 low Not Available [facility] (Lab) [address], [place], [address], 10/09/2024 09:14:34 10/09/1910/08/2024 HEMAT OCRIT (HCT) HCT 31.7 % (based on docume nted legal sex) 34.0-4 5.0 low Not Available [facility] (Lab) [address] [facility], [place], [address], 10/09/2024 09:14:34 10/09/1910/08/2024 RPR SCREE N, REFLE X TITER /CONF IRMAT ION RPR qualitative Nonrea ctive nonrea ctive Not Available [facility] (Lab) [address] [facility], [place], [address], 10/09/2024 09:14:35 10/14/1910/13/2024 RETIC ULOCY TE COUNT reticulocyte count percent 1.70 % 0.50-2 .50 Not Available [facility] (Lab) [address] [facility], [place], [address], 10/14/2024 03:54:56 10/14/1910/13/2024 RETIC ULOCY TE COUNT reticulocyte count absolute 64.90 10'3/ uL no define d refere nce range Refer ence range s for nonbi nary/ inter sex or unspe cifie d gende r patie nts have not been estab lishe d. Pleas e refer to the [facility] wing table for range s estab lishe d for cisge nder patie nts and evalu ate in the clini arjun esther xt of the indiv idual patie nt: https ://kole ortiz book. nm.or g/gen derx Not Available [facility] (Lab) [address] [place], [address], 10/14/2024 03:54:56 10/14/1910/13/2024 GTT - GESTA JUAN CARLOS L, 3 HOUR, ACOG glucose, fasting acog 83 mg/dL 70-94 Not Available [facility] (Lab) [address] [facility], [place], [address], 10/14/2024 03:54:59 10/14/19 25 10/13/2024 GTT - GESTA JUAN CARLOS L, 3 HOUR, ACOG glucose, 1 hour acog 183 mg/dL 70-179 high Not Available [facility] (Lab) [address] [place], [address], 10/14/2024 03:54:59 10/14/19 25 10/13/2024 GTT - GESTA JUAN CARLOS L, 3 HOUR, ACOG glucose, 2 hour acog 185 mg/dL 70-154 high Not Available [facility] (Lab) [address] [place], [address], 10/14/2024 03:54:59 10/14/19 25 10/13/2024 GTT - GESTA JUAN CARLOS L, 3 HOUR, ACOG glucose, 3 hour acog 138 mg/dL 70-139 Not Available [facility] (Lab) [address] [place], [address], 10/14/2024 03:54:59 10/14/19 25 10/13/2024 ILANA TIN / IRON / TRANS ILANA N / TIBC iron 23 ug/dL 40-170 low Not Available [facility] (Lab) [address] [place], [address], 10/14/2024 03:54:59 10/14/19 25 10/13/2024 ILANA TIN / IRON / TRANS ILANA N / TIBC transferrin 554 mg/dL 200-36 0 high Not Available [facility] (Lab) [address] [place], [address], 10/14/2024 03:54:59 10/14/19 25 10/13/2024 ILANA TIN / IRON / TRANS ILANA N / TIBC ferritin 2.8 NG/mL 8.0-25 2.0 low Not Available [facility] (Lab) [address] [place], [address], 10/14/2024 03:54:59 10/14/19 25 10/13/2024 ILANA TIN / IRON / TRANS ILANA N / TIBC TIBC 776 ug/dL 250-45 0 high Not Available [facility] (Lab) [address] [facility], [place], [address], 10/14/2024 03:54:59 10/14/19 25 10/13/2024 ILANA TIN / IRON / TRANS ILANA N / TIBC iron saturation 3 % 20-55 low Not Available [facility] (Lab) [address] [place], [address], 10/14/2024 03:54:59 10/14/19 25 10/13/2024 VITAM IN B12 / FOLAT E PANEL vitamin B12 164 pg/mL 180-91 4 low Radha l Range : 180-9 14 pg/mL . Indet ermin ate Range : 145-1 80 pg/mL . Defic ient Range : <=145 pg/mL . Not Available [facility] (Lab) [address] [facility], [place], [address], 10/14/2024 03:55:00 10/14/1910/13/2024 VITAM IN B12 / FOLAT E PANEL folate, serum 6.6 NG/mL 6.0-20 .0 Not Available [facility] (Lab) [address] [place], [address], 10/14/2024 03:55:00 12/04/1912/03/2024 URIC ACID uric acid 6.0 mg/dL 2.3-6. 6 Not Available [facility] (Lab) [address] [place], [address], 12/04/2024 04:39:11 12/04/1912/03/2024 CBC W/DIF F WBC 8.1 10'3/ uL 3.5-10 .5 Not Available [facility] (Lab) [address] [place], [address], 12/04/2024 04:39:12 12/04/1912/03/2024 CBC W/DIF F RBC 4.42 10'6/ uL (based on docume nted legal sex) 3.80-5 .20 Not Available [facility] (Lab) [address], [place], [address], 12/04/2024 04:39:12 12/04/1912/03/2024 CBC W/DIF F HGB 11.1 g/dL (based on docume nted legal sex) 11.6-1 5.4 low Not Available [facility] (Lab) [address], [place], [address], 12/04/2024 04:39:12 12/04/1912/03/2024 CBC W/DIF F HCT 35.0 % (based on docume nted legal sex) 34.0-4 5.0 Not Available [facility] (Lab) [address], [place], [address], 12/04/2024 04:39:12 12/04/1912/03/2024 CBC W/DIF F MCV 79.2 fL 80.0-9 9.0 low Not Available [facility] (Lab) [address], [place], [address], 12/04/2024 04:39:12 12/04/1912/03/2024 CBC W/DIF F MCH 25.1 pg 27.0-3 4.0 low Not Available [facility] (Lab) [address] [facility], [place], [address], 12/04/2024 04:39:12 12/04/1912/03/2024 CBC W/DIF F MCHC 31.7 g/dL 32.0-3 5.5 low Not Available [facility] (Lab) [address] [facility], [place], [address], 12/04/2024 04:39:12 12/04/1912/03/2024 CBC W/DIF F RDW 17.3 % 11.0-1 5.0 high Not Available [facility] (Lab) [address], [place], [address], 12/04/2024 04:39:12 12/04/19 25 12/03/2024 CBC W/DIF F plt 268 10'3/ uL 150-40 0 Not Available [facility] (Lab) [address], [place], [address], 12/04/2024 04:39:12 12/04/19 25 12/03/2024 CBC W/DIF F MPV 12.8 fL 8.8-12 .1 high Not Available [facility] (Lab) [address], [place], [address], 12/04/2024 04:39:12 12/04/1912/03/2024 CBC W/DIF F NRBC's 0.0 % 0.0 Not Available [facility] (Lab) [address], [place], [address], 12/04/2024 04:39:12 12/04/19 25 12/03/2024 CBC W/DIF F absolute NRBCs 0.0 10'3/ uL no refere nce range establ ished Not Available [facility] (Lab) [address], [place], [address], 12/04/2024 04:39:12 12/04/1912/03/2024 CBC W/DIF F neutrophils 70.6 % 34.0-7 3.0 Not Available [facility] (Lab) [address], [place], [address], 12/04/2024 04:39:12 12/04/19 25 12/03/2024 CBC W/DIF F lymphocytes 18.9 % 15.0-5 0.0 Not Available [facility] (Lab) [address], [place], [address], 12/04/2024 04:39:12 12/04/19 25 12/03/2024 CBC W/DIF F monocytes 9.2 % 1.0-15 .0 Not Available [facility] (Lab) [address], [place], [address], 12/04/2024 04:39:12 12/04/19 25 12/03/2024 CBC W/DIF F eosinophils 0.9 % 0.0-8. 0 Not Available [facility] (Lab) [address] [facility], [place], [address], 12/04/2024 04:39:12 12/04/19 25 12/03/2024 CBC W/DIF F basophils 0.2 % 0.0-2. 0 Not Available [facility] (Lab) [address] [facility], [place], [address], 12/04/2024 04:39:12 12/04/19 25 12/03/2024 CBC W/DIF [...] separ ately if prese nt. Not Available [facility] (Lab) [address] , [place], [address], 12/04/2024 04:39:12 12/04/19 25 12/03/2024 CBC W/DIF F absolute neutrophils 5.7 10'3/ uL 1.5-8. 0 Not Available [facility] (Lab) [address] [place], [address], 12/04/2024 04:39:12 12/04/19 25 12/03/2024 CBC W/DIF F absolute lymphocytes 1.5 10'3/ uL 1.0-4. 0 Not Available [facility] (Lab) [address], [place], [address], 12/04/2024 04:39:12 12/04/1912/03/2024 CBC W/DIF F absolute monocytes 0.8 10'3/ uL 0.2-1. 0 Not Available [facility] (Lab) [address], [place], [address], 12/04/2024 04:39:12 12/04/19 25 12/03/2024 CBC W/DIF F absolute eosinophils 0.1 10'3/ uL 0.0-0. 6 Not Available [facility] (Lab) [address], [place], [address], 12/04/2024 04:39:12 12/04/19 25 12/03/2024 CBC W/DIF F absolute basophils 0.0 10'3/ uL 0.0-0. 3 Not Available [facility] (Lab) [address], [place], [address], 12/04/2024 04:39:12 12/04/1912/03/2024 CBC W/DIF F absolute immature granulocytes 0.0 10'3/ uL 0.00-0 .10 Refer ence range s for nonbi nary/ inter sex or unspe cifie d gende r patie nts have not been estab lishe d. Pleas e refer to the cristiano wing table for range s estab lishe d for cisge nder patie nts and evalu ate in the clini arjun esther xt of the indiv idual patie nt: https ://kole ortiz book. nm.or g/gen derx Not Available [facility] (Lab) [address], [place], [address], 12/04/2024 04:39:12 12/04/1912/03/2024 CMP(C OMPRE HENSI VE METAB OLIC PANEL ) sodium 134 mmol/ L 133-14 6 Not Available [facility] (Lab) [address], [place], [address], 12/04/2024 04:39:12 12/04/19 25 12/03/2024 CMP(C OMPRE HENSI VE METAB OLIC PANEL ) potassium 4.2 mmol/ L 3.5-5. 1 Not Available [facility] (Lab) [address] [facility], [place], [address], 12/04/2024 04:39:12 12/04/19 25 12/03/2024 CMP(C OMPRE HENSI VE METAB OLIC PANEL ) chloride 104 mmol/ L 98-107 Not Available [facility] (Lab) [address] [facility], [place], [address], 12/04/2024 04:39:12 12/04/19 25 12/03/2024 CMP(C OMPRE HENSI VE METAB OLIC PANEL ) carbon dioxide 23 mmol/ L 21-31 Not Available [facility] (Lab) [address] [facility], [place], [address], 12/04/2024 04:39:12 12/04/19 25 12/03/2024 CMP(C OMPRE HENSI VE METAB OLIC PANEL ) anion gap 7 mmol/ L 4-13 Not Available [facility] (Lab) [address] [facility], [place], [address], 12/04/2024 04:39:12 12/04/19 25 12/03/2024 CMP(C OMPRE HENSI VE METAB OLIC PANEL ) blood urea nitrogen 7 mg/dL 7-25 Not Available [facility] (Lab) [address] [facility], [place], [address], 12/04/2024 04:39:12 12/04/19 25 12/03/2024 CMP(C OMPRE HENSI VE METAB OLIC PANEL ) creatinine 0.60 mg/dL 0.60-1 .30 Not Available [facility] (Lab) [address] [facility], [place], [address], 12/04/2024 04:39:12 12/04/19 25 12/03/2024 CMP(C OMPRE HENSI VE METAB OLIC PANEL ) egfrcr (CKD-epi 2020) >90 mL/mi n/1.7 3_m2 >=60 Not Available [facility] (Lab) [address] [facility], [place], [address], 12/04/2024 04:39:12 12/04/19 25 12/03/2024 CMP(C OMPRE HENSI VE METAB OLIC PANEL ) calcium 9.3 mg/dL 8.3-10 .5 Not Available [facility] (Lab) [address] [facility], [place], [address], 12/04/2024 04:39:12 12/04/19 25 12/03/2024 CMP(C OMPRE HENSI VE METAB OLIC PANEL ) glucose 98 mg/dL 70-100 Not Available [facility] (Lab) [address] [facility], [place], [address], 12/04/2024 04:39:12 12/04/19 25 12/03/2024 CMP(C OMPRE HENSI VE METAB OLIC PANEL ) protein, total 6.0 g/dL 6.4-8. 3 low Not Available [facility] (Lab) [address] [facility], [place], [address], 12/04/2024 04:39:12 12/04/19 25 12/03/2024 CMP(C OMPRE HENSI VE METAB OLIC PANEL ) albumin 3.5 g/dL 3.5-5. 0 Not Available [facility] (Lab) [address] [facility], [place], [address], 12/04/2024 04:39:12 12/04/19 25 12/03/2024 CMP(C OMPRE HENSI VE METAB OLIC PANEL ) ALT 11 units /L 9-43 Not Available [facility] (Lab) [address] [facility], [place], [address], 12/04/2024 04:39:12 12/04/19 25 12/03/2024 CMP(C OMPRE HENSI VE METAB OLIC PANEL ) alkaline phosphatase 204 units /L 34-104 high Not Available [facility] (Lab) [address] [facility], [place], [address], 12/04/2024 04:39:12 12/04/19 25 12/03/2024 CMP(C OMPRE HENSI VE METAB OLIC PANEL ) AST 14 units /L 13-39 Not Available [facility] (Lab) [address] [facility], [place], [address], 12/04/2024 04:39:12 12/04/19 25 12/03/2024 CMP(C OMPRE HENSI VE METAB OLIC PANEL ) bilirubin, total 0.3 mg/dL 0.2-1. 2 Not Available [facility] (Lab) [address] [facility], [place], [address], 12/04/2024 04:39:12 12/04/19 25 12/03/2024 PROTE IN/CR EATIN INE RATIO , URINE creatinine, urine 93.6 mg/dL R-No refer ence range estab lishe d for this assay Not Available [facility] (Lab) [address] [facility], [place], [address], 12/04/2024 04:39:13 12/04/19 25 12/03/2024 PROTE IN/CR EATIN INE RATIO , URINE protein, urine 14 mg/dL R-No refer ence range estab lishe d for this assay Not Available [facility] (Lab) [address] [place], [address], 12/04/2024 04:39:13 12/04/19 25 12/03/2024 PROTE IN/CR [...] fican t prote inuri a. Not Available [facility] (Lab) [address], [place], [address], 12/04/2024 04:39:13 12/04/1912/03/2024 CULTU RE: GROUP B STREP SCREE N, REFLE X SUSCE PTIBI LITY result report SEE RESULT S BELOW abnormal Test: Cultu re: Group B Strep , Refle x Susce ptibi lity ([facility]/ [facility] ) Speci men Sourc e: Vagin a/Rec daryn Speci men Type: Vagin al/Re ctal Speci men Date: 2024 1739 Resul t Date: 2024 1520 Resul t Statu s: Final resul t Abnor mal: Yes Teja hubbard Lab: [facility] [address] [facility] [address] Tel: CULTU RE ----- ----- ----- --- [...] pramod for these drugs . Not Available [facility] (Lab) [address], [place], [address], 12/07/2024 16:23:37 12/25/1912/24/2024 CMP/C BC/UR IC ACID WBC 7.7 10'3/ uL 3.5-10 .5 Not Available [facility] (Lab) [address], [place], [address], 12/25/2024 09:20:42 12/25/1912/24/2024 CMP/C BC/UR IC ACID RBC 4.54 10'6/ uL (based on docume nted legal sex) 3.80-5 .20 Not Available [facility] (Lab) [address], [place], [address], 12/25/2024 09:20:42 12/25/19 25 12/24/2024 CMP/C BC/UR IC ACID HGB 11.8 g/dL (based on docume nted legal sex) 11.6-1 5.4 Not Available [facility] (Lab) [address], [place], [address], 12/25/2024 09:20:42 12/25/19 25 12/24/2024 CMP/C BC/UR IC ACID HCT 38.0 % (based on docume nted legal sex) 34.0-4 5.0 Not Available [facility] (Lab) [address], [place], [address], 12/25/2024 09:20:42 12/25/19 25 12/24/2024 CMP/C BC/UR IC ACID MCV 83.7 fL 80.0-9 9.0 Not Available [facility] (Lab) [address] [facility], [place], [address], 12/25/2024 09:20:42 12/25/19 25 12/24/2024 CMP/C BC/UR IC ACID MCH 26.0 pg 27.0-3 4.0 low Not Available [facility] (Lab) [address] [place], [address], 12/25/2024 09:20:42 12/25/19 25 12/24/2024 CMP/C BC/UR IC ACID MCHC 31.1 g/dL 32.0-3 5.5 low Not Available [facility] (Lab) [address] [facility], [place], [address], 12/25/2024 09:20:42 12/25/19 25 12/24/2024 CMP/C BC/UR IC ACID RDW 21.2 % 11.0-1 5.0 high Not Available [facility] (Lab) [address] [facility], [place], [address], 12/25/2024 09:20:42 12/25/19 25 12/24/2024 CMP/C BC/UR IC ACID plt 218 10'3/ uL 150-40 0 Not Available [facility] (Lab) [address] [facility], [place], [address], 12/25/2024 09:20:42 12/25/19 25 12/24/2024 CMP/C BC/UR IC ACID MPV 14.0 fL 8.8-12 .1 high Not Available [facility] (Lab) [address] [facility], [place], [address], 12/25/2024 09:20:42 12/25/19 25 12/24/2024 CMP/C BC/UR IC ACID NRBC's 0.0 % 0.0 Not Available [facility] (Lab) [address] [facility], [place], [address], 12/25/2024 09:20:42 12/25/19 25 12/24/2024 CMP/C BC/UR IC ACID absolute NRBCs 0.0 10'3/ uL no refere nce range establ ished Not Available [facility] (Lab) [address] [facility], [place], [address], 12/25/2024 09:20:42 12/25/1912/24/2024 CMP/C BC/UR IC ACID neutrophils 78.6 % 34.0-7 3.0 high Not Available [facility] (Lab) [address] [place], [address], 12/25/2024 09:20:42 12/25/1912/24/2024 CMP/C BC/UR IC ACID lymphocytes 15.0 % 15.0-5 0.0 Not Available [facility] (Lab) [address] [place], [address], 12/25/2024 09:20:42 12/25/19 25 12/24/2024 CMP/C BC/UR IC ACID monocytes 5.6 % 1.0-15 .0 Not Available [facility] (Lab) [address] [facility], [place], [address], 12/25/2024 09:20:42 12/25/19 25 12/24/2024 CMP/C BC/UR IC ACID eosinophils 0.4 % 0.0-8. 0 Not Available [facility] (Lab) [address] [facility], [place], [address], 12/25/2024 09:20:42 12/25/19 25 12/24/2024 CMP/C BC/UR IC ACID basophils 0.3 % 0.0-2. 0 Not Available [facility] (Lab) [address] [facility], [place], [address], 12/25/2024 09:20:42 12/25/19 25 12/24/2024 CMP/C BC/UR [...] separ ately if prese nt. Not Available [facility] (Lab) [address] [facility], [place], [address], 12/25/2024 09:20:42 12/25/19 25 12/24/2024 CMP/C BC/UR IC ACID absolute neutrophils 6.1 10'3/ uL 1.5-8. 0 Not Available [facility] (Lab) [address] [facility], [place], [address], 12/25/2024 09:20:42 12/25/19 25 12/24/2024 CMP/C BC/UR IC ACID absolute lymphocytes 1.2 10'3/ uL 1.0-4. 0 Not Available [facility] (Lab) [address] [facility], [place], [address], 12/25/2024 09:20:42 12/25/1912/24/2024 CMP/C BC/UR IC ACID absolute monocytes 0.4 10'3/ uL 0.2-1. 0 Not Available [facility] (Lab) [address] [facility], [place], [address], 12/25/2024 09:20:42 12/25/19 25 12/24/2024 CMP/C BC/UR IC ACID absolute eosinophils 0.0 10'3/ uL 0.0-0. 6 Not Available [facility] (Lab) [address] [facility], [place], [address], 12/25/2024 09:20:42 12/25/1912/24/2024 CMP/C BC/UR IC ACID absolute basophils 0.0 10'3/ uL 0.0-0. 3 Not Available [facility] (Lab) [address] [facility], [place], [address], 12/25/2024 09:20:42 12/25/1912/24/2024 CMP/C BC/UR IC ACID absolute immature granulocytes 0.0 10'3/ uL 0.00-0 .10 Refer ence range s for nonbi nary/ inter sex or unspe cifie d gende r patie nts have not been estab lishe d. Shelbie e refer to the [facility] table for range s estab lishe d for cisge nder patie nts and evalu ate in the clini arjun esther xt of the indiv idual patie nt: https ://kole ortiz book. nm.or g/gen derx Not Available [facility] (Lab) [address] [facility] [address], [place], [address], 12/25/2024 09:20:42 12/25/1912/24/2024 CMP/C BC/UR IC ACID sodium 135 mmol/ L 133-14 6 Not Available [facility] (Lab) [address] [place], [address], 12/25/2024 09:20:42 12/25/19 25 12/24/2024 CMP/C BC/UR IC ACID potassium 4.2 mmol/ L 3.5-5. 1 Not Available [facility] (Lab) [address] [facility], [place], [address], 12/25/2024 09:20:42 12/25/19 25 12/24/2024 CMP/C BC/UR IC ACID chloride 103 mmol/ L 98-107 Not Available [facility] (Lab) [address] [facility], [place], [address], 12/25/2024 09:20:42 12/25/19 25 12/24/2024 CMP/C BC/UR IC ACID carbon dioxide 21 mmol/ L 21-31 Not Available [facility] (Lab) [address], [place], [address], 12/25/2024 09:20:42 12/25/19 25 12/24/2024 CMP/C BC/UR IC ACID anion gap 11 mmol/ L 4-13 Not Available [facility] (Lab) [address], [place], [address], 12/25/2024 09:20:42 12/25/19 25 12/24/2024 CMP/C BC/UR IC ACID blood urea nitrogen 12 mg/dL 7-25 Not Available [facility] (Lab) [address], [place], [address], 12/25/2024 09:20:42 12/25/19 25 12/24/2024 CMP/C BC/UR IC ACID creatinine 0.75 mg/dL 0.60-1 .30 Not Available [facility] (Lab) [address], [place], [address], 12/25/2024 09:20:42 12/25/19 25 12/24/2024 CMP/C BC/UR IC ACID egfrcr (CKD-epi 2020) >90 mL/mi n/1.7 3_m2 >=60 Not Available [facility] (Lab) [address], [place], [address], 12/25/2024 09:20:42 12/25/19 25 12/24/2024 CMP/C BC/UR IC ACID calcium 9.5 mg/dL 8.3-10 .5 Not Available [facility] (Lab) [address] [place], [address], 12/25/2024 09:20:42 12/25/19 25 12/24/2024 CMP/C BC/UR IC ACID glucose 83 mg/dL 70-100 Not Available [facility] (Lab) [address], [place], [address], 12/25/2024 09:20:42 12/25/19 25 12/24/2024 CMP/C BC/UR IC ACID protein, total 5.9 g/dL 6.4-8. 3 low Not Available [facility] (Lab) [address], [place], [address], 12/25/2024 09:20:42 12/25/1912/24/2024 CMP/C BC/UR IC ACID albumin 3.4 g/dL 3.5-5. 0 low Not Available [facility] (Lab) [address] [place], [address], 12/25/2024 09:20:42 12/25/19 25 12/24/2024 CMP/C BC/UR IC ACID ALT 10 units /L 9-43 Not Available [facility] (Lab) [address] [place], [address], 12/25/2024 09:20:42 12/25/19 25 12/24/2024 CMP/C BC/UR IC ACID alkaline phosphatase 228 units /L 34-104 high Not Available [facility] (Lab) [address] [place], [address], 12/25/2024 09:20:42 12/25/19 25 12/24/2024 CMP/C BC/UR IC ACID AST 14 units /L 13-39 Not Available [facility] (Lab) [address] [facility], [place], [address], 12/25/2024 09:20:42 12/25/19 25 12/24/2024 CMP/C BC/UR IC ACID bilirubin, total 0.5 mg/dL 0.2-1. 2 Not Available [facility] (Lab) [address] [facility], [place], [address], 12/25/2024 09:20:42 12/25/19 25 12/24/2024 CMP/C BC/UR IC ACID uric acid 7.4 mg/dL 2.3-6. 6 high Not Available [facility] (Lab) [address] [facility], [place], [address], 12/25/2024 09:20:42 12/25/19 25 12/24/2024 PROTE IN/CR EATIN INE RATIO , URINE creatinine, urine 156.2 mg/dL R-No refer ence range estab lishe d for this assay Not Available [facility] (Lab) [address] [facility], [place], [address], 12/25/2024 09:20:43 12/25/19 25 12/24/2024 PROTE IN/CR EATIN INE RATIO , URINE protein, urine 23 mg/dL R-No refer ence range estab lishe d for this assay Not Available [facility] (Lab) [address] [place], [address], 12/25/2024 09:20:43 12/25/19 25 12/24/2024 PROTE IN/CR EATIN INE RATIO , URINE protein/crea tinine ratio, urine 0.15 . No Refer ence Range avail able for Rando m Urine s. A prote in to creat inine ratio of >=0.1 9 is a good predi ctor of sultanai toby t prote inuri a. A level of <0.14 can rule out sultanai toby orantes a. Not Available [facility] (Lab) [address], [place], [address], 12/25/2024 09:20:43 08/13/19 25 08/12/2024 US, obste tric, 2nd or 3rd trime ster No observ ation record ed. [email or web address] [facility] [address], [place], [address], 08/12/2024 14:44:06 08/13/19 25 08/12/2024 US, obste tric, 2nd or 3rd trime ster No observ ation record ed. Etta [address], [place], [address], 08/14/2024 11:02:10 09/05/19 25 09/04/2024 US, robyn yates r No observ ation record ed. [address] [facility] [address], [place], [address], 09/08/2024 14:32:13 11/06/19 25 11/05/2024 US, obste tric, follo w-up No observ ation record ed. [email or web address] [place] [address], [place], [address], 11/05/2024 16:49:36 11/06/19 25 11/05/2024 US, obste tric, follo w-up No observ ation record ed. Etta [address], [place], [address], 11/11/2024 08:39:31 12/04/19 25 12/03/2024 US, obste tric, follo w-up No observ ation record ed. [email or web address] [facility] [address], [place], [address], 12/03/2024 18:52:18 12/04/1912/03/2024 US, obste tric, follo w-up No observ ation record ed. [email or web address] [address] [address], [place], [address], 12/09/2024 12:27:48 Result Notes None recorded. Problems Name Problem SNOMED Code Status Onset Date Resolution Date Notes Provider Name and Address Organization Details Recorded Time Pregnanc y 70617728 Completed 202401/02/2025 Lucille Arreola [facility], [facility] 5 15:54:04 Placenta circumva llata 7666535 Completed 2024 32 wk [facility] 22:55:48 Ashu alanis 753562701 Active [address] lipscomb office number to schedule post delivery Tonja Mayer CNM [address], [place], [address], [facility] 5 13:27:29 Ashu alanis [id number] Completed [address] lipscomb office number to schedule post delivery Tonja Mayer CNM [address], [place], [address], [facility] 5 13:27:29 Administ ration of human anti-D immunogl obulin needed Completed 2024 rhogam received 10/08/24 Bhavya Pal [facility] 5 07:51:34 Administ ration of human anti-D immunogl obulin needed Active 2024 rhogam received 10/08/24 Bhavya spaulding [facility] 5 07:51:34 Gestatio nal diabetes mellitus 25446204 Completed 2024 Checking bs QID , serial growth us, DT referral faxed to [facility] 10/15 Tianna Rosen [facility] 5 12:49:02 Anemia of pregnanc y 57179676 Completed 2024 Iron infusion s weekly x 4 doses order faxed 10/15 Tianna Rosen [facility] 5 12:49:18 Problem Notes None recorded. Procedures Surgical History Date Name Laterality Status Provider Name and Address Organization Details Recorded Time 4 extraction of wisdom tooth completed Bhavya Pal [facility] 08/17/2024 10:09:10 9 tonsilectomy/a denoids completed Sophie Abrams [facility] 11/28/2023 14:06:37 Imaging Results None [...] Updated DateTime 01/02/2025 154.94 cm 31.7 kg/m2 53216.52 g 150/95 mm[Hg] Lucille Arreola [facility] 01/02/2025 15:52:24 Social History Question Answer Notes LastModified by Organizat ion Details LastModified Time Tobacco Smoking Status Former Smoker Bhavya spaulding, [facility] 08/17/2024 10:08:39 If You Are , What Was Your Level Of Alcohol Consumption Prior To ? None [email or web address] Information not available 08/17/2024 Are You Blind [...] Or The Highest Degree You Have Received? [id number] Information not available 11/28/2023 Are There Any [...] Have Difficulty Walking Or Climbing Stairs? No [email or web address] Information not available 08/17/2024 Sex: Unknown Functional Status Question Answer Note LastModified by Organizat ion Details LastModified Time Do you use any illicit or recreational drugs? No Information not available 11/28/2023 Do you or have you ever used any other forms of tobacco or nicotine? No [email or web address] Information not available 08/17/2024 What is your level of alcohol consumption? None Information not available 11/28/2023 Are you able to walk independently without assistance or assistive devices? [email or web address] Information not available 11/28/2023 Are you able to care for yourself independently? Yes [email or web address] Information not available 05/21/2024 Do you have difficulty dressing, bathing, grooming, or toileting? No [email or web address] Information not available 08/17/2024 What is your exercise level? Occasional Information not available 11/28/2023 Mental Status Question Answer Note LastModified by Organization D etails LastModified Time Do you feel stressed (tense, restless, nervous, or anxious, or unable to sleep at night)? [id number] Information not available 11/28/2023 Family History Relationship Description Onset Age of this Age Resolved Age Notes LastModified by Organization Details LastModified Time Maternal Grandfather Heart disease [email or web address] Not available 2023 14:06:18 Maternal Grandfather Diabetes mellitus [email or web address] Not available 2023 14:06:18 Medical History Condition Response Allergies (Food, seasonal, environmental ) N Other N Drug/Latex Allergies/Reactions N Breast Cancer N Blood Transfusion N Lung Disease N Dermatologic Disorders N Defects or Inherited Disease N Breast Problem N Gestational Diabetes N Hematologic disorders N Anesthesia Complications N History of STI N Deep Vein Thrombosis N Polycystic ovary syndrome N Anxiety Disorder N Autoimmune disease N Arthritis N Polyps N Infertility N History of abnormal pap N Acid Reflux (GERD) N Cancer N Varicosities N Stroke N [...] ICD10 Code Diagnosis IMO Codes Diagnosis Note [id number] Milton Bustamante MD [address],[place] [address] 12/03/2024 17:23:53 12/04/2024 09:08:47 Gestational diabetes mellitus 49735298 O24.410 O43.113 Z3A.36 54605982 443048 Tonja Mayer [facility] [address],[place] [address] 12/03/2024 17:24:11 12/04/2024 01:23:19 Gestation period, 36 weeks 81986260 Z3A.36 5304809 cont pnv [id number] JEREMI LIM MD [facility] [address],[place] [address] 12/17/2024 12:19:09 12/17/2024 15:57:07 Anemia of 65928138 O99.019 02161829 - Hgb 9.5 at 28 weeks, improved to 11.1 on 12/03 Gestationa l diabetes mellitus 09677370 O24.410 63603003 - well controlled with diet- q4 week growth US Gestation period, 38 weeks 79441298 Z3A.38 4575955 - continue PNV [id number] Tonja Mayer [facility] [address],[place] [address] 12/24/2024 12:22:54 12/24/2024 12:59:40 Gestation period, 39 weeks 58779687 Z3A.39 6192985 cont pnv [id number] JEREMI LIM MD [facility] [address],[place] [address] 01/02/2025 15:43:01 01/02/2025 16:29:07 care status 309998310 Z39.2 0789117 S/p c section on . Incision well-heale d without any signs of infection2 . Family planning options discussed. She will continue to abstain from intercours e until her 6wk visit.3. RTC 4wks for post-partu m check Hypertensi on AND/OR vomiting complicating childbirth AND/OR puerperium 336840639 O13.9 59303281 - asymptomat ic- BP elevated today, will start home BP monitoring - will call next week to review BP Health Concerns Section Related Observation LastModified by Organization Detai ls LastModified Time None Recorded Concern Status LastModified by Organization Details LastModified Time None Recorded Payers Encounter Date Sequence Insurance Name Policy Number Policy Lara Covered Member ID Lara Member ID Guarantor Name 01/02/2025 1 [facility] (MEDICAID HMO) [id number] Agueda Doty [id number] Agueda Doty Notes Date Note Type Note Provider Name and Address Organization Details Recorded Time 01/02/2025 text/html ROS as noted in the HPI s/p C/S 12/24. She presents today for her incision check. Her postop course has been unremarkable. She has minimal spotting, denies pain, fever or any other concerning symptoms. She is formula feeding and her baby is doing well. Her mood is good. JEREMI LIM MD [address], [place], [address], [facility] 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 Status 06/18/19 25 1 A Negative 168 Greg CLOSED Fetus Data First Name Last Name Admitted to NICU Weight (g) Sex Living Outcome Pediatric Complications Fetus ID Race Codes Race Delivery Type Valent deloris 3203.49 35 M true Full Term [id number] Problems Problem Notes Problem Name Start Date End Date Resolution Snomed Code Not e Anemia of 10/14/2024 82558883 Iron infusions weekly x 4 doses order faxed 10/15 Placenta circumvallata 08/13/2024 498759 0 32 wk growth us Gallstone 09/10/[address] giordano office number to schedule post delivery Administration of human anti-D immunoglobulin needed 10/11/2024 0133299163 rhogam received 10/08/24 Gestational diabetes mellitus 10/14/2024 38140393 Checking bs QID , serial growth us, DT referral faxed to [facility] 10/15 Stu Calculation Initial Stu Date Initial Exam Date Initial Exam Provider Initial Ultrasound Date Last Menstrual Period Date Ultra Sound Weeks Gestation 12/27/2024 05/20/2024 [email or web address] 05/20/2024 03/12/2024 8 Eighteen To Twenty Week Stu Update Ultra Sound Date Fundal Height At Umbil Quickening Date Ultra Sound Latest Weeks Gestation Final Stu Confirmed By Final Stu Confirmed Date Final Stu Date Ultra Sound Latest Days Gestation 0 [email or web address] 06/19/2024 12/28/19 25 0 Pre- Flowsheet Flowsheet Date 06/18/2024 Cuellar Score Blood Edema Fundus Height Fundus Units Glucose Ketones Leukocytes Nitrite Labor Signs Protein Cervic Dilation Cervic Effacement Cervic Station Type Weight in lbs Pre/Post Dialysis Refused Weight 167.929800561164 BP Diastolic BP Location Tested BP Systolic BP Type 68 L arm 144 sitting Fetus Heart Rate Present A Present Fetus Movement Comments Patient presents to [facility] care. Hx of miscarriage in [...] Weight in lbs Pre/Post Dialysis Refused Weight 166.007013742146 BP Diastolic BP Location Tested BP Systolic [...] Type Weight in lbs Pre/Post Dialysis Refused 168.260536435726 BP Diastolic BP Location Tested BP Systolic BP Type 83 125 Fetus Heart Rate Present Fetus Movement A Yes Comments Patient is having some BH co ntraction. 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 Flowsheet Date 09/10/2024 Cuellar Score Blood Edema Fundus Height Fundus Units Glucose Ketones Leukocytes Nitrite Labor Signs Protein Cervic Dilation Cervic Effacement Cervic Station neg none Type Weight in lbs Pre/Post Dialysis Refused Weight 167.315893464817 BP Diastolic BP Location Tested BP Systolic [...] Type Weight in lbs Pre/Post Dialysis Refused 171.383832335863 BP Diastolic BP Location Tested BP Systolic [...] Weight in lbs Pre/Post Dialysis Refused Weight 173.989988080638 BP Diastolic BP Location Tested BP Systolic [...] Type Weight in lbs Pre/Post Dialysis Refused 176.613670762029 BP Diastolic BP Location Tested BP Systolic BP Type 81 L arm 127 sitting Fetus Heart Rate Present Fetus Movement A Yes Comments doing well, +FM, reviewed bl ood sugars, 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, call for preadmit f/u 2 weeks AC 92%, AC 78% Flowsheet Date 11/19/2024 Cuellar Score Blood Edema Fundus Height Fundus Units Glucose Ketones Leukocytes Nitrite Labor Signs Protein Cervic Dilation Cervic Effacement Cervic Station Type Weight in lbs Pre/Post Dialysis Refused Weight 179.592479123039 BP Diastolic BP Location Tested BP Systolic [...] Type Weight in lbs Pre/Post Dialysis Refused 183.616360149530 BP Diastolic BP Location Tested BP Systolic [...] Weight in lbs Pre/Post Dialysis Refused Weight 185.814813087776 BP Diastolic BP Location Tested BP Systolic [...] Weight in lbs Pre/Post Dialysis Refused Weight 186.531787838323 BP Diastolic BP Location Tested BP Systolic [...] Weight in lbs Pre/Post Dialysis Refused Weight 168.716198218647 BP Diastolic BP Location Tested BP Systolic [...]
--- OUTSIDE RECORDS SUMMARY | 2025-04-01 00:47 | XMS_ITS | Data Portability ---
Author Organization [place] - [facility] [employer], Main Office Address [address] [place] [address] Assessment Encounter Date Assessment Date Assessment LastModified [...] was taken to the emergency room in [place]. X-rays of the elbow and the wrist [...] or more view 024 05/17/19 24 [email or web address] [facility]_[address], [address], [address], 16:34:01 Medication Orders None record ed. Patient TargetsNo targets recorded. Patient InstructionsNo instructions recorded. Reason for Referral None Reported. Results Created Date Observation Date Name Description Value Unit Range Abnormal Flag Note LastModifiedBy Organization Detail LastModifiedTime 04/18/20 23 XR, wrist No observ ation record ed. [email or web address] Not Available 2022 15:11:41 05/17/19 24 XR, wrist , 3 or more view No observ ation record ed. [email or web address] [facility] [address], [address], [address], 05/17/2023 12:22:37 Result Notes None recorded. Problems Name Problem SNOMED Code Status Onset Date Resolution Date Notes Provider Name and Address Organization Details Recorded Time History of depression 245737009 Active Not Available [facility] 3 18:21:02 Ingrowing toenail 422153370 Active Not Available [facility] 3 18:21:02 Pain of left wrist 5217509301516 02 Active 2022 [employer] [facility] [employer] [facility] 3 09:55:13 Problem Notes None recorded. Procedures Surgical History Date Name Laterality Status Provider Name and Address Organization Details Recorded Time procedure on tonsils completed [employer] [facility] [employer] [facility] 04/19/2023 09:54:28 Imaging Results None recorded. Procedure Notes None [...] Not Available Vitals Date Recorded Body height Provider Name an d Address Organization Details Last Updated DateTime 05/17/2023 154.94 cm Adelaida Carver CMA [facility] I L [employer] [facility] 05/17/2023 11:58:15 Date Recorded Body height Body mass index (BMI) [Percentile] Per age and sex Body mass index (BMI) Body weight Provider Name and Address Organization Details Last Updated DateTime 04/19/2023 154.94 cm 96.01 % 33.3 kg/m2 03981.26 g [employer] [place] [facility] 04/19/2023 10:00:09 Social History None recorded. Functional Status Question Answer Note LastModified by Organizat ion Details LastModified Time What is your level of alcohol consumption? None [email or web address] Information not available 04/19/2023 What is your occupation? Other [id number] Information not available 06/21/2022 Mental Status None recorded. Family History Nothing Reported. Medical History No medical history recorded. Gynecological HistoryNo gynecological history recorded. Obstetrics History GPAL:G 0 P 0 0 0 0 Past Encounters Encounter ID Performer Location Encounter Start Date Encounter Closed Date Diagnosis/Indication Diagnosis SNOMED-CT Code Diagnosis ICD10 Code Diagnosis IMO Codes Diagnosis Note [id number] Alexander Casanova MD [facility]_[address] [address] 04/19/2023 09:40:09 04/19/2023 10:23:10 Pain of left wrist 5446753094 97528 M25.411 [id number] Alexander Casanova MD [facility]_[address] [address] 05/17/2023 11:25:18 05/17/2023 12:38:38 Pain of left wrist 7637268910 19481 M25.532 Health Concerns Section Related Observation LastModified by Organization Detai ls LastModified Time None Recorded Concern Status LastModified by Organization Details LastModified Time None Recorded Advance Directives Directive None Recorded Payers Insurance Date Sequence Insurance Name Policy Number Policy Lara Covered Member ID Lara Member ID Guarantor Name 06/11/2023 [place] DURABLE MEDICAL EQUIPMENT Agueda Doty [id number] Claire Doty 06/11/2023 1 [facility] (MEDICAID HMO) [id number] Agueda Doty [id number] Claire Doty 06/11/2023 1 [place] [facility] OF PUBLIC AID Agueda Doty [id number] Claire Doty 03/10/2024 2 [facility] (MEDICAID HMO) [id number] Agueda Doty [id number] Claire Doty 06/11/2023 2 [facility] - DOS PRIOR TO 2020 (MEDICAID REPLACEMENT - HMO) Agueda Doty [id number] Claire Doty OBGyn Episode No OBEpisode recorded.
--- OUTSIDE RECORDS SUMMARY | 2025-04-01 00:47 | XMS_ITS | Continuity of Care Document ---
Author Organization [facility], [facility] Address [address] [place] [address] Assessment No assessment recorded. Plan of Treatment Reminders Order Date Submit Date Provider Last Modified By Organization Details Last Modified Time Details Appointments None recorded. Lab None recorded. Referral general surgeon referral [address] - General Surgery, [address] [place] [address] [address], [place], [address], 14:52:44 Procedures None recorded. Surgeries None recorded. Imaging None recorded. Medication Orders Xulane 150 mcg-35 mcg/24 hr transdermal patch 2024 [facility]acy #[id number], [address] , [place], [address], 13:58:34 Patient TargetsNo targets recorded. Patient InstructionsNo instructions recorded. Reason for Referral General Surgeon Referral for Biliary colic Referring Physician: Jeremi Lim, [employer], Encounter Date: 02/09/2025 Results Created Date Observation [...] Resul ting Lab: [facility] [address] [place] [address] Tel: CULTU RE ----- ----- ----- --- Cultu re resul t (>=3 organ isms prese nt) indic ates possi ble conta minat ion. Repea t cultu re if sympt oms indic ate. Not Available [facility] (Lab) [address], [place], [address], 06/20/2024 08:08:05 06/18/19 25 06/18/2024 drug scree n, urine Amphetamines : negati ve Not Available [facility] [address], [place], [address], 06/18/2024 15:05:47 06/18/19 25 06/18/2024 drug scree n, urine Cannabinoids : positi ve Not Available [facility] [address], [place], [address], 06/18/2024 15:05:47 06/18/19 25 06/18/2024 drug scree n, urine Cocaine: negati ve Not Available [facility] [address], [place], [address], 06/18/2024 15:05:47 06/18/19 25 06/18/2024 drug scree n, urine Opiates: negati ve Not Available [facility] [address], [place], [address], 06/18/2024 15:05:47 06/18/19 25 06/18/2024 drug scree n, urine Phenocyclidi ne: negati ve Not Available [facility] [address], [place], [address], 06/18/2024 15:05:47 06/18/19 25 06/18/2024 drug scree n, urine Barbiturates : negati ve Not Available [facility] [address], [place], [address], 06/18/2024 15:05:47 06/18/19 25 06/18/2024 drug scree n, urine Benzodiazepi francisco javier: negati ve Not Available [facility] [address], [place], [address], 06/18/2024 15:05:47 06/18/19 25 06/18/2024 drug scree n, urine Ethanol: negati ve Not Available [facility] [address], [place], [address], 06/18/2024 15:05:47 06/18/19 25 06/18/2024 drug scree n, urine Hallucinogen s: negati ve Not Available [facility] [address], [place], [address], 06/18/2024 15:05:47 06/18/19 25 06/18/2024 drug scree n, urine Inhalants: negati ve Not Available [facility] [address], [place], [address], 06/18/2024 15:05:47 06/18/19 25 06/18/2024 drug scree n, urine Anabolic Steroids: negati ve Not Available [facility] [address], [place], [address], 06/18/2024 15:05:47 10/09/19 25 10/08/2024 GTT - GESTA JUAN CARLOS L SCREE N, ACOG OB glucose, 1 hour screen 145 mg/dL 70-135 high Not Available [facility] (Lab) [address], [place], [address], 10/09/2024 09:14:33 10/09/19 25 10/08/2024 HIV 1/2 ANTIG EN/AN TIBOD Y, REFLE X CONFI RMATI ON HIV antigen/anti body Nonrea ctive nonrea ctive HIV-1 antig en and HIV-1 /HIV- 2 antib odies were not detec kristie. No labor atory evide nce of HIV infec tion. Not Available [facility] (Lab) [address], [place], [address], 10/09/2024 09:14:34 10/09/1910/08/2024 HEMOG LOBIN (HGB) HGB 9.7 g/dL (based on docume nted legal sex) 11.6-1 5.4 low Not Available [facility] (Lab) [address], [place], [address], 10/09/2024 09:14:34 10/09/1910/08/2024 HEMAT OCRIT (HCT) HCT 31.7 % (based on docume nted legal sex) 34.0-4 5.0 low Not Available [facility] (Lab) [address], [place], [address], 10/09/2024 09:14:34 10/09/1910/08/2024 RPR SCREE N, REFLE X TITER /CONF IRMAT ION RPR qualitative Nonrea ctive nonrea ctive Not Available [facility] (Lab) [address], [place], [address], 10/09/2024 09:14:35 10/14/1910/13/2024 RETIC ULOCY TE COUNT reticulocyte count percent 1.70 % 0.50-2 .50 Not Available [facility] (Lab) [address], [place], [address], 10/14/2024 03:54:56 10/14/1910/13/2024 RETIC ULOCY TE COUNT reticulocyte count absolute 64.90 10'3/ uL no define d refere nce range Refer ence range s for nonbi nary/ inter sex or unspe cifie d gende r patie nts have not been estab lishe chacho Pleas e refer to the follo wing table for range s estab lishe d for cisge nder patie nts and evalu ate in the clini arjun esther xt of the indiv idual patizeke nt: https ://kole ortiz book. nm.or g/gen derx Not Available [facility] (Lab) [address], [place], [address], 10/14/2024 03:54:56 10/14/19 25 10/13/2024 GTT - GESTA JUAN CARLOS L, 3 HOUR, ACOG glucose, fasting acog 83 mg/dL 70-94 Not Available [facility] (Lab) [address], [place], [address], 10/14/2024 03:54:59 10/14/19 25 10/13/2024 GTT - GESTA JUAN CARLOS L, 3 HOUR, ACOG glucose, 1 hour acog 183 mg/dL 70-179 high Not Available [facility] (Lab) [address], [place], [address], 10/14/2024 03:54:59 10/14/19 25 10/13/2024 GTT - GESTA JUAN CARLOS L, 3 HOUR, ACOG glucose, 2 hour acog 185 mg/dL 70-154 high Not Available [facility] (Lab) [address] [place], [address], 10/14/2024 03:54:59 10/14/19 25 10/13/2024 GTT - GESTA JUAN CARLOS L, 3 HOUR, ACOG glucose, 3 hour acog 138 mg/dL 70-139 Not Available [facility] (Lab) [address] [place], [address], 10/14/2024 03:54:59 10/14/19 25 10/13/2024 ILANA TIN / IRON / TRANS ILANA N / TIBC iron 23 ug/dL 40-170 low Not Available [facility] (Lab) [address] [place], [address], 10/14/2024 03:54:59 10/14/19 25 10/13/2024 ILANA TIN / IRON / TRANS ILANA N / TIBC transferrin 554 mg/dL 200-36 0 high Not Available [facility] (Lab) [address] [place], [address], 10/14/2024 03:54:59 10/14/19 25 10/13/2024 ILANA TIN / IRON / TRANS ILANA N / TIBC ferritin 2.8 NG/mL 8.0-25 2.0 low Not Available [facility] (Lab) [address], [place], [address], 10/14/2024 03:54:59 10/14/19 25 10/13/2024 ILANA TIN / IRON / TRANS ILANA N / TIBC TIBC 776 ug/dL 250-45 0 high Not Available [facility] (Lab) [address] [place], [address], 10/14/2024 03:54:59 10/14/19 25 10/13/2024 ILANA TIN / IRON / TRANS ILANA N / TIBC iron saturation 3 % 20-55 low Not Available [facility] (Lab) [address] [place], [address], 10/14/2024 03:54:59 10/14/19 25 10/13/2024 VITAM IN B12 / FOLAT E PANEL vitamin B12 164 pg/mL 180-91 4 low Radha l Range : 180-9 14 pg/mL . Indet ermin ate Range : 145-1 80 pg/mL . Defic ient Range : <=145 pg/mL . Not Available [facility] (Lab) [address] [place], [address], 10/14/2024 03:55:00 10/14/19 25 10/13/2024 VITAM IN B12 / FOLAT E PANEL folate, serum 6.6 NG/mL 6.0-20 .0 Not Available [facility] (Lab) [address] [place], [address], 10/14/2024 03:55:00 12/04/1912/03/2024 URIC ACID uric acid 6.0 mg/dL 2.3-6. 6 Not Available [facility] (Lab) [address], [place], [address], 12/04/2024 04:39:11 12/04/1912/03/2024 CBC W/DIF F WBC 8.1 10'3/ uL 3.5-10 .5 Not Available [facility] (Lab) [address] [facility] [address], [place], [address], 12/04/2024 04:39:12 12/04/19 25 12/03/2024 CBC W/DIF F RBC 4.42 10'6/ uL (based on docume nted legal sex) 3.80-5 .20 Not Available [facility] (Lab) [address] [facility] [address], [place], [address], 12/04/2024 04:39:12 12/04/19 25 12/03/2024 CBC W/DIF F HGB 11.1 g/dL (based on docume nted legal sex) 11.6-1 5.4 low Not Available [facility] (Lab) [address], [place], [address], 12/04/2024 04:39:12 12/04/1912/03/2024 CBC W/DIF F HCT 35.0 % (based on docume nted legal sex) 34.0-4 5.0 Not Available [facility] (Lab) [address], [place], [address], 12/04/2024 04:39:12 12/04/1912/03/2024 CBC W/DIF F MCV 79.2 fL 80.0-9 9.0 low Not Available [facility] (Lab) [address], [place], [address], 12/04/2024 04:39:12 12/04/19 25 12/03/2024 CBC W/DIF F MCH 25.1 pg 27.0-3 4.0 low Not Available [facility] (Lab) [address], [place], [address], 12/04/2024 04:39:12 12/04/19 25 12/03/2024 CBC W/DIF F MCHC 31.7 g/dL 32.0-3 5.5 low Not Available [facility] (Lab) [address], [place], [address], 12/04/2024 04:39:12 12/04/1912/03/2024 CBC W/DIF F RDW 17.3 % 11.0-1 5.0 high Not Available [facility] (Lab) [address], [place], [address], 12/04/2024 04:39:12 12/04/1912/03/2024 CBC W/DIF F plt 268 10'3/ uL 150-40 0 Not Available [facility] (Lab) [address], [place], [address], 12/04/2024 04:39:12 12/04/19 25 12/03/2024 CBC W/DIF F MPV 12.8 fL 8.8-12 .1 high Not Available [facility] (Lab) [address], [place], [address], 12/04/2024 04:39:12 12/04/1912/03/2024 CBC W/DIF F NRBC's 0.0 % 0.0 Not Available [facility] (Lab) [address], [place], [address], 12/04/2024 04:39:12 12/04/19 25 12/03/2024 CBC W/DIF F absolute NRBCs 0.0 10'3/ uL no refere nce range establ ished Not Available [facility] (Lab) [address], [place], [address], 12/04/2024 04:39:12 12/04/19 25 12/03/2024 CBC W/DIF F neutrophils 70.6 % 34.0-7 3.0 Not Available [facility] (Lab) [address], [place], [address], 12/04/2024 04:39:12 12/04/19 25 12/03/2024 CBC W/DIF F lymphocytes 18.9 % 15.0-5 0.0 Not Available [facility] (Lab) [address], [place], [address], 12/04/2024 04:39:12 12/04/19 25 12/03/2024 CBC W/DIF F monocytes 9.2 % 1.0-15 .0 Not Available [facility] (Lab) [address] [place], [address], 12/04/2024 04:39:12 12/04/19 25 12/03/2024 CBC W/DIF F eosinophils 0.9 % 0.0-8. 0 Not Available [facility] (Lab) [address], [place], [address], 12/04/2024 04:39:12 12/04/19 25 12/03/2024 CBC W/DIF F basophils 0.2 % 0.0-2. 0 Not Available [facility] (Lab) [address], [place], [address], 12/04/2024 04:39:12 12/04/19 25 12/03/2024 CBC W/DIF [...] separ ately if prese nt. Not Available [facility] (Lab) [address], [place], [address], 12/04/2024 04:39:12 12/04/1912/03/2024 CBC W/DIF F absolute neutrophils 5.7 10'3/ uL 1.5-8. 0 Not Available [facility] (Lab) [address], [place], [address], 12/04/2024 04:39:12 12/04/19 25 12/03/2024 CBC W/DIF F absolute lymphocytes 1.5 10'3/ uL 1.0-4. 0 Not Available [facility] (Lab) [address], [place], [address], 12/04/2024 04:39:12 12/04/19 25 12/03/2024 CBC W/DIF F absolute monocytes 0.8 10'3/ uL 0.2-1. 0 Not Available [facility] (Lab) [address], [place], [address], 12/04/2024 04:39:12 12/04/19 25 12/03/2024 CBC W/DIF F absolute eosinophils 0.1 10'3/ uL 0.0-0. 6 Not Available [facility] (Lab) [address], [place], [address], 12/04/2024 04:39:12 12/04/19 25 12/03/2024 CBC W/DIF F absolute basophils 0.0 10'3/ uL 0.0-0. 3 Not Available [facility] (Lab) [address], [place], [address], 12/04/2024 04:39:12 12/04/1912/03/2024 CBC W/DIF F absolute immature granulocytes 0.0 10'3/ uL 0.00-0 .10 Refer ence range s for nonbi nary/ inter sex or unspe cifie d gende r patie nts have not been estab lishe d. Plenatalya e refer to the follo wing table for range s estab lishe d for cisge nder patie nts and evalu ate in the clini arjun esther xt of the indiv idual patizeke nt: https ://kole ortiz book. nm.or g/gen derx Not Available [facility] (Lab) [address], [place], [address], 12/04/2024 04:39:12 12/04/19 25 12/03/2024 CMP(C OMPRE HENSI VE METAB OLIC PANEL ) sodium 134 mmol/ L 133-14 6 Not Available [facility] (Lab) [address], [place], [address], 12/04/2024 04:39:12 12/04/19 25 12/03/2024 CMP(C OMPRE HENSI VE METAB OLIC PANEL ) potassium 4.2 mmol/ L 3.5-5. 1 Not Available [facility] (Lab) [address], [place], [address], 12/04/2024 04:39:12 12/04/19 25 12/03/2024 CMP(C OMPRE HENSI VE METAB OLIC PANEL ) chloride 104 mmol/ L 98-107 Not Available [facility] (Lab) [address], [place], [address], 12/04/2024 04:39:12 12/04/19 25 12/03/2024 CMP(C OMPRE HENSI VE METAB OLIC PANEL ) carbon dioxide 23 mmol/ L 21-31 Not Available [facility] (Lab) [address], [place], [address], 12/04/2024 04:39:12 12/04/19 25 12/03/2024 CMP(C OMPRE HENSI VE METAB OLIC PANEL ) anion gap 7 mmol/ L 4-13 Not Available [facility] (Lab) [address] [place], [address], 12/04/2024 04:39:12 12/04/19 25 12/03/2024 CMP(C OMPRE HENSI VE METAB OLIC PANEL ) blood urea nitrogen 7 mg/dL 7-25 Not Available [facility] (Lab) [address], [place], [address], 12/04/2024 04:39:12 12/04/19 25 12/03/2024 CMP(C OMPRE HENSI VE METAB OLIC PANEL ) creatinine 0.60 mg/dL 0.60-1 .30 Not Available [facility] (Lab) [address], [place], [address], 12/04/2024 04:39:12 12/04/19 25 12/03/2024 CMP(C OMPRE HENSI VE METAB OLIC PANEL ) egfrcr (CKD-epi 2020) >90 mL/mi n/1.7 3_m2 >=60 Not Available [facility] (Lab) [address], [place], [address], 12/04/2024 04:39:12 12/04/19 25 12/03/2024 CMP(C OMPRE HENSI VE METAB OLIC PANEL ) calcium 9.3 mg/dL 8.3-10 .5 Not Available [facility] (Lab) [address], [place], [address], 12/04/2024 04:39:12 12/04/19 25 12/03/2024 CMP(C OMPRE HENSI VE METAB OLIC PANEL ) glucose 98 mg/dL 70-100 Not Available [facility] (Lab) [address], [place], [address], 12/04/2024 04:39:12 12/04/19 25 12/03/2024 CMP(C OMPRE HENSI VE METAB OLIC PANEL ) protein, total 6.0 g/dL 6.4-8. 3 low Not Available [facility] (Lab) [address], [place], [address], 12/04/2024 04:39:12 12/04/19 25 12/03/2024 CMP(C OMPRE HENSI VE METAB OLIC PANEL ) albumin 3.5 g/dL 3.5-5. 0 Not Available [facility] (Lab) [address], [place], [address], 12/04/2024 04:39:12 12/04/19 25 12/03/2024 CMP(C OMPRE HENSI VE METAB OLIC PANEL ) ALT 11 units /L 9-43 Not Available [facility] (Lab) [address], [place], [address], 12/04/2024 04:39:12 12/04/19 25 12/03/2024 CMP(C OMPRE HENSI VE METAB OLIC PANEL ) alkaline phosphatase 204 units /L 34-104 high Not Available [facility] (Lab) [address], [place], [address], 12/04/2024 04:39:12 12/04/19 25 12/03/2024 CMP(C OMPRE HENSI VE METAB OLIC PANEL ) AST 14 units /L 13-39 Not Available [facility] (Lab) [address], [place], [address], 12/04/2024 04:39:12 12/04/19 25 12/03/2024 CMP(C OMPRE HENSI VE METAB OLIC PANEL ) bilirubin, total 0.3 mg/dL 0.2-1. 2 Not Available [facility] (Lab) [address], [place], [address], 12/04/2024 04:39:12 12/04/19 25 12/03/2024 PROTE IN/CR EATIN INE RATIO , URINE creatinine, urine 93.6 mg/dL R-No refer ence range estab lishe d for this assay Not Available [facility] (Lab) [address], [place], [address], 12/04/2024 04:39:13 12/04/19 25 12/03/2024 PROTE IN/CR EATIN INE RATIO , URINE protein, urine 14 mg/dL R-No refer ence range estab lishe d for this assay Not Available [facility] (Lab) [address], [place], [address], 12/04/2024 04:39:13 12/04/1912/03/2024 PROTE IN/CR EATIN INE RATIO , URINE protein/crea tinine ratio, urine 0.15 . No Refer ence Range avail able for Rando m Urine s. A prote in to creat inine ratio of >=0.1 9 is a good predi ctor of signi fican t prote inuri a. A level of <0.14 can rule out signi fican t prote inuri a. Not Available [facility] (Lab) [address], [place], [address], 12/04/2024 04:39:13 12/04/1912/03/2024 CULTU RE: GROUP B STREP SCREE N, REFLE X SUSCE PTIBI LITY result report SEE RESULT S BELOW abnormal Test: Cultu re: Group B Strep , Refle x Susce ptibi lity ([facility] ) Speci men Sourc e: Vagin a/Rec daryn Speci men Type: Vagin al/Re ctal Speci men Date: 2024 1739 Resul t Date: 2024 1520 Resul t Statu s: Final resul t Abnor mal: Yes Resul ting Lab: [facility] [address] [facility] [address] Tel: CULTU RE ----- ----- ----- --- [...] pramod for these drugs . Not Available [facility] (Lab) [address], [place], [address], 12/07/2024 16:23:37 12/25/1912/24/2024 CMP/C BC/UR IC ACID WBC 7.7 10'3/ uL 3.5-10 .5 Not Available [facility] (Lab) [address], [place], [address], 12/25/2024 09:20:42 12/25/1912/24/2024 CMP/C BC/UR IC ACID RBC 4.54 10'6/ uL (based on docume nted legal sex) 3.80-5 .20 Not Available [facility] (Lab) [address], [place], [address], 12/25/2024 09:20:42 12/25/19 25 12/24/2024 CMP/C BC/UR IC ACID HGB 11.8 g/dL (based on docume nted legal sex) 11.6-1 5.4 Not Available [facility] (Lab) [address], [place], [address], 12/25/2024 09:20:42 12/25/19 25 12/24/2024 CMP/C BC/UR IC ACID HCT 38.0 % (based on docume nted legal sex) 34.0-4 5.0 Not Available [facility] (Lab) [address], [place], [address], 12/25/2024 09:20:42 12/25/19 25 12/24/2024 CMP/C BC/UR IC ACID MCV 83.7 fL 80.0-9 9.0 Not Available [facility] (Lab) [address], [place], [address], 12/25/2024 09:20:42 12/25/19 25 12/24/2024 CMP/C BC/UR IC ACID MCH 26.0 pg 27.0-3 4.0 low Not Available [facility] (Lab) [address], [place], [address], 12/25/2024 09:20:42 12/25/1912/24/2024 CMP/C BC/UR IC ACID MCHC 31.1 g/dL 32.0-3 5.5 low Not Available [facility] (Lab) [address], [place], [address], 12/25/2024 09:20:42 12/25/19 25 12/24/2024 CMP/C BC/UR IC ACID RDW 21.2 % 11.0-1 5.0 high Not Available [facility] (Lab) [address], [place], [address], 12/25/2024 09:20:42 12/25/19 25 12/24/2024 CMP/C BC/UR IC ACID plt 218 10'3/ uL 150-40 0 Not Available [facility] (Lab) [address], [place], [address], 12/25/2024 09:20:42 12/25/1912/24/2024 CMP/C BC/UR IC ACID MPV 14.0 fL 8.8-12 .1 high Not Available [facility] (Lab) [address], [place], [address], 12/25/2024 09:20:42 12/25/1912/24/2024 CMP/C BC/UR IC ACID NRBC's 0.0 % 0.0 Not Available [facility] (Lab) [address], [place], [address], 12/25/2024 09:20:42 12/25/1912/24/2024 CMP/C BC/UR IC ACID absolute NRBCs 0.0 10'3/ uL no refere nce range establ ished Not Available [facility] (Lab) [address], [place], [address], 12/25/2024 09:20:42 12/25/19 25 12/24/2024 CMP/C BC/UR IC ACID neutrophils 78.6 % 34.0-7 3.0 high Not Available [facility] (Lab) [address], [place], [address], 12/25/2024 09:20:42 12/25/19 25 12/24/2024 CMP/C BC/UR IC ACID lymphocytes 15.0 % 15.0-5 0.0 Not Available [facility] (Lab) [address], [place], [address], 12/25/2024 09:20:42 12/25/19 25 12/24/2024 CMP/C BC/UR IC ACID monocytes 5.6 % 1.0-15 .0 Not Available [facility] (Lab) [address], [place], [address], 12/25/2024 09:20:42 12/25/19 25 12/24/2024 CMP/C BC/UR IC ACID eosinophils 0.4 % 0.0-8. 0 Not Available [facility] (Lab) [address], [place], [address], 12/25/2024 09:20:42 12/25/19 25 12/24/2024 CMP/C BC/UR IC ACID basophils 0.3 % 0.0-2. 0 Not Available [facility] (Lab) [address] [place], [address], 12/25/2024 09:20:42 12/25/19 25 12/24/2024 CMP/C BC/UR [...] separ ately if prese nt. Not Available [facility] (Lab) [address], [place], [address], 12/25/2024 09:20:42 12/25/19 25 12/24/2024 CMP/C BC/UR IC ACID absolute neutrophils 6.1 10'3/ uL 1.5-8. 0 Not Available [facility] (Lab) [address], [place], [address], 12/25/2024 09:20:42 12/25/19 25 12/24/2024 CMP/C BC/UR IC ACID absolute lymphocytes 1.2 10'3/ uL 1.0-4. 0 Not Available [facility] (Lab) [address], [place], [address], 12/25/2024 09:20:42 12/25/19 25 12/24/2024 CMP/C BC/UR IC ACID absolute monocytes 0.4 10'3/ uL 0.2-1. 0 Not Available [facility] (Lab) [address], [place], [address], 12/25/2024 09:20:42 12/25/19 25 12/24/2024 CMP/C BC/UR IC ACID absolute eosinophils 0.0 10'3/ uL 0.0-0. 6 Not Available [facility] (Lab) [address], [place], [address], 12/25/2024 09:20:42 12/25/1912/24/2024 CMP/C BC/UR IC ACID absolute basophils 0.0 10'3/ uL 0.0-0. 3 Not Available [facility] (Lab) [address] [place], [address], 12/25/2024 09:20:42 12/25/19 25 12/24/2024 CMP/C BC/UR IC ACID absolute immature granulocytes [...] ortiz book. nm.or g/gen derx Not Available [facility] (Lab) [address], [place], [address], 12/25/2024 09:20:42 12/25/19 25 12/24/2024 CMP/C BC/UR IC ACID sodium 135 mmol/ L 133-14 6 Not Available [facility] (Lab) [address], [place], [address], 12/25/2024 09:20:42 12/25/19 25 12/24/2024 CMP/C BC/UR IC ACID potassium 4.2 mmol/ L 3.5-5. 1 Not Available [facility] (Lab) [address], [place], [address], 12/25/2024 09:20:42 12/25/19 25 12/24/2024 CMP/C BC/UR IC ACID chloride 103 mmol/ L 98-107 Not Available [facility] (Lab) [address] [place], [address], 12/25/2024 09:20:42 12/25/19 25 12/24/2024 CMP/C BC/UR IC ACID carbon dioxide 21 mmol/ L 21-31 Not Available [facility] (Lab) [address], [place], [address], 12/25/2024 09:20:42 12/25/19 25 12/24/2024 CMP/C BC/UR IC ACID anion gap 11 mmol/ L 4-13 Not Available [facility] (Lab) [address] [place], [address], 12/25/2024 09:20:42 12/25/19 25 12/24/2024 CMP/C BC/UR IC ACID blood urea nitrogen 12 mg/dL 7-25 Not Available [facility] (Lab) [address], [place], [address], 12/25/2024 09:20:42 12/25/19 25 12/24/2024 CMP/C BC/UR IC ACID creatinine 0.75 mg/dL 0.60-1 .30 Not Available [facility] (Lab) [address], [place], [address], 12/25/2024 09:20:42 12/25/19 25 12/24/2024 CMP/C BC/UR IC ACID egfrcr (CKD-epi 2020) >90 mL/mi n/1.7 3_m2 >=60 Not Available [facility] (Lab) [address], [place], [address], 12/25/2024 09:20:42 12/25/19 25 12/24/2024 CMP/C BC/UR IC ACID calcium 9.5 mg/dL 8.3-10 .5 Not Available [facility] (Lab) [address], [place], [address], 12/25/2024 09:20:42 12/25/19 25 12/24/2024 CMP/C BC/UR IC ACID glucose 83 mg/dL 70-100 Not Available [facility] (Lab) [address], [place], [address], 12/25/2024 09:20:42 12/25/19 25 12/24/2024 CMP/C BC/UR IC ACID protein, total 5.9 g/dL 6.4-8. 3 low Not Available [facility] (Lab) [address] [place], [address], 12/25/2024 09:20:42 12/25/19 25 12/24/2024 CMP/C BC/UR IC ACID albumin 3.4 g/dL 3.5-5. 0 low Not Available [facility] (Lab) [address] [place], [address], 12/25/2024 09:20:42 12/25/19 25 12/24/2024 CMP/C BC/UR IC ACID ALT 10 units /L 9-43 Not Available [facility] (Lab) [address] [facility], [place], [address], 12/25/2024 09:20:42 12/25/19 25 12/24/2024 CMP/C BC/UR IC ACID alkaline phosphatase 228 units /L 34-104 high Not Available [facility] (Lab) [address] [facility], [place], [address], 12/25/2024 09:20:42 12/25/19 25 12/24/2024 CMP/C BC/UR IC ACID AST 14 units /L 13-39 Not Available [facility] (Lab) [address] [facility], [place], [address], 12/25/2024 09:20:42 12/25/19 25 12/24/2024 CMP/C BC/UR IC ACID bilirubin, total 0.5 mg/dL 0.2-1. 2 Not Available [facility] (Lab) [address] [facility], [place], [address], 12/25/2024 09:20:42 12/25/19 25 12/24/2024 CMP/C BC/UR IC ACID uric acid 7.4 mg/dL 2.3-6. 6 high Not Available [facility] (Lab) [address] [place], [address], 12/25/2024 09:20:42 12/25/19 25 12/24/2024 PROTE IN/CR EATIN INE RATIO , URINE creatinine, urine 156.2 mg/dL R-No refer ence range estab lishe d for this assay Not Available [facility] (Lab) [address] [place], [address], 12/25/2024 09:20:43 12/25/19 25 12/24/2024 PROTE IN/CR EATIN INE RATIO , URINE protein, urine 23 mg/dL R-No refer ence range estab lishe d for this assay Not Available [facility] (Lab) [address] [facility], [place], [address], 12/25/2024 09:20:43 12/25/19 25 12/24/2024 PROTE IN/CR [...] fican t prote inuri a. Not Available [facility] (Lab) [address] [facility], [place], [address], 12/25/2024 09:20:43 08/13/19 25 08/12/2024 US, obste tric, 2nd or 3rd trime ster No observ ation record ed. [email or web address] [facility] [address], [place], [address], 08/12/2024 14:44:06 08/13/19 25 08/12/2024 US, nikia tric, 2nd or 3rd trime ster No observ ation record ed. [email or web address] [address], [place], [address], 08/14/2024 11:02:10 09/05/19 25 09/04/2024 US, robyn yates r No observ ation record ed. [address], [place], [address], 09/08/2024 14:32:13 11/06/19 25 11/05/2024 US, nikia posada follo w-up No observ ation record ed. [email or web address] [facility] [address], [place], [address], 11/05/2024 16:49:36 11/06/19 25 11/05/2024 US, obste tric, follo w-up No observ ation record ed. [email or web address] [address], [place], [address], 11/11/2024 08:39:31 12/04/19 25 12/03/2024 US, obste tric, follo w-up No observ ation record ed. [facility] [address], [place], [address], 12/03/2024 18:52:18 12/04/1912/03/2024 US, obste tric, follo w-up No observ ation record ed. [email or web address] [address], [place], [address], 12/09/2024 12:27:48 Result Notes None recorded. Problems Name Problem SNOMED Code Status Onset Date Resolution Date Notes Provider Name and Address Organization Details Recorded Time Pregnanc y 22634525 Completed 202401/02/2025 Lucille spaulding, [facility] 15:54:04 Placenta circumva llata 4809232 Completed 2024 32 wk growth Tianna spaulding, [facility] 22:55:48 Ashu alanis 333037674 Active [address] lipscomb office number to schedule post delivery Tonja Mayer CNM [address], [place], [address], [facility] 13:27:29 Ashu alanis [id number] Completed [address] lipscomb office number to schedule post delivery Tonja Mayer CNM [address], [place], [address], [facility] 05/21/202 5 13:27:29 Administ ration of human anti-D immunogl obulin needed Completed 2024 rhogam received 10/08/24 Bhavya spaulding [facility] 5 07:51:34 Administ ration of human anti-D immunogl obulin needed Active 2024 rhogam received 10/08/24 Bhavya spaulding [facility] 5 07:51:34 Gestatio nal diabetes mellitus 37104983 Completed 2024 Checking bs QID , serial growth us, DT referral faxed to [facility] 10/15 Tianna spaulding [facility] 5 12:49:02 Anemia of pregnanc y 80358223 Completed 2024 Iron infusion s weekly x 4 doses order faxed 10/15 Tianna spaulding [facility] 5 12:49:18 Problem Notes None recorded. Procedures Surgical History Date Name Laterality Status Provider Name and Address Organization Details Recorded Time 4 extraction of wisdom tooth completed Bhavya Pal [facility] 08/17/2024 10:09:10 9 tonsilectomy/a denoids completed Sophie Abrams [facility] 11/28/2023 14:06:37 Imaging Results None recorded. [...] Updated DateTime 02/09/2025 154.94 cm 31 kg/m2 64909.15 g 118/78 mm[Hg] Ingrid Cardoso [facility] 02/09/2025 12:13:35 Social History Question Answer Notes LastModified by Organizat ion Details LastModified Time Tobacco Smoking Status Former Smoker Bhavya spaulding, [facility] 08/17/2024 10:08:39 If You Are , What Was Your Level Of Alcohol Consumption Prior To ? None [email or web address] Information not available 08/17/2024 Are You Blind [...] Or The Highest Degree You Have Received? [id number] Information not available 11/28/2023 Are There Any Guns Present In Your Home? No Information not available 11/28/2023 Do You Use Protection During Sex? No Information not available 11/28/2023 Do You Use Your Seat Belt Or Car Seat Routinely? Yes Information not available 11/28/2023 Are You Sexually Active? Yes [email or web address] Information not available 05/21/2024 Do You Have Smoke And Carbon Monoxide Detectors In Your Home? No Information not available 11/28/2023 How Much Tobacco Do You Smoke? No Information not available 11/28/2023 Do You Use Sunscreen Routinely? Yes Information not available 11/28/2023 Have You Used IV Drugs? No Information not available 11/28/2023 Do You Have Difficulty Walking Or Climbing Stairs? No [email or web address] Information not available 08/17/2024 Sex: Unknown Functional [...] able to care for yourself independently? Yes [email or web address] Information not available 05/21/2024 Do you have difficulty dressing, bathing, grooming, or toileting? No Information not available 08/17/2024 What is your exercise level? Occasional Information not available 11/28/2023 Mental Status Question Answer Note LastModified by Organization D etails LastModified Time Do you feel stressed (tense, restless, nervous, or anxious, or unable to sleep at night)? [id number] Information not available 11/28/2023 Family History Relationship [...] ICD10 Code Diagnosis IMO Codes Diagnosis Note [id number] JEREMI LIM MD [facility] [address] [address] 02/09/2025 11:54:01 02/09/2025 14:52:44 care status 126995206 Z39.2 07659 S/p PLTCS 6 weeks ago here today for a visit.1. Patient recovering well2. Plans to continue formula feeding3. Interested in patch for contracept ion at this time. Risks, benefits, and alternativ es reviewed with the patient4. Patient instructed to follow up in 3-6 months for well woman exam unless need arises prior Biliary colic [id number] K 80.50 9496 - issues with biliary [...] Member ID Lara Member ID Guarantor Name 02/09/2025 1 [facility] (MEDICAID HMO) [id number] Agueda Doty [id number] Agueda Doty Notes Date Note Type Note Provider Name and Address Organization Details Recorded Time 02/09/2025 text/html ROS as noted in the [...] patch. JEREMI LIM MD [address], [place], [address], [place] [facility] 02/09/2025 14:51:14 OBGyn Episode Ob Episode Information Episode Created Date Number of Fetuses Patient Bloodtype Patient rh Status Prepregnancy Weight lbs Domestic Partner Domestic Partner Phone Father Name Physician Practice Coordinator Status 06/18/19 1 A Negative 168 Greg CLOSED Fetus Data First Name Last Name Admitted to NICU Weight (g) Sex Living Outcome Pediatric Complications Fetus ID Race Codes Race Delivery Type Valent deloris 3203.49 35 M true Full Term [id number] Problems Problem Notes Problem Name Start Date End Date Resolution Snomed Code Not e Anemia of 10/14/2024 [id number] Iron infusions weekly x 4 doses order faxed 10/15 Placenta circumvallata 08/13/2024 502438 0 32 wk growth us Gallstone 09/10/[id number] giordano office number to schedule post delivery Administration of human anti-D immunoglobulin needed 10/11/2024 [id number] rhogam received 10/08/24 Gestational diabetes mellitus 10/14/2024 82012072 Checking bs QID , serial growth us, DT referral faxed to [facility] 10/15 Stu Calculation Initial Stu Date Initial Exam Date Initial Exam Provider Initial Ultrasound Date Last Menstrual Period Date Ultra Sound Weeks Gestation 12/27/2024 05/20/2024 [email or web address] 05/20/2024 03/12/2024 8 Eighteen To Twenty Week Stu Update Ultra Sound Date Fundal Height At Umbil Quickening Date Ultra Sound Latest Weeks Gestation Final Stu Confirmed By Final Stu Confirmed Date Final Stu Date Ultra Sound Latest Days Gestation 0 06/19/2024 12/28/19 25 0 Pre-srinivasan Flowsheet Flowsheet Date 06/18/2024 Cuellar Score Blood Edema Fundus Height Fundus Units Glucose Ketones Leukocytes Nitrite Labor Signs Protein Cervic Dilation Cervic Effacement Cervic Station Type Weight in lbs Pre/Post Dialysis Refused Weight 167.930056475144 BP Diastolic BP Location Tested BP Systolic BP Type 68 L arm 144 sitting Fetus Heart Rate Present A Present Fetus Movement Comments Patient presents to [facility] care. Hx of miscarriage in previous [...] Weight in lbs Pre/Post Dialysis Refused Weight 166.689813104845 BP Diastolic BP Location Tested BP Systolic [...] Type Weight in lbs Pre/Post Dialysis Refused 168.410269836775 BP Diastolic BP Location Tested BP Systolic BP Type 83 125 Fetus Heart Rate Present Fetus Movement A Yes Comments Patient is having some BH co ntraction. reviewed precautions, anatomy complete, partial CV placenta growth at 32 weeks, +FM, doing well discussed classes and button tacker Flowsheet Date 09/10/2024 Cuellar Score Blood Edema Fundus Height Fundus Units Glucose Ketones Leukocytes Nitrite Labor Signs Protein Cervic Dilation Cervic Effacement Cervic Station neg none Type Weight in lbs Pre/Post Dialysis Refused Weight 167.250995836278 BP Diastolic BP Location Tested BP Systolic [...] Type Weight in lbs Pre/Post Dialysis Refused 171.283072626330 BP Diastolic BP Location Tested BP Systolic [...] Weight in lbs Pre/Post Dialysis Refused Weight 173.671926735734 BP Diastolic BP Location Tested BP Systolic [...] Type Weight in lbs Pre/Post Dialysis Refused 176.666178240616 BP Diastolic BP Location Tested BP Systolic BP Type 81 L arm 127 sitting Fetus Heart Rate Present Fetus Movement A Yes Comments doing well, +FM, reviewed bl ood sugars, discussed button tacker, call for preadmit f/u 2 weeks AC 92%, AC 78% Flowsheet Date 11/19/2024 Cuellar Score Blood Edema Fundus Height Fundus Units Glucose Ketones Leukocytes Nitrite Labor Signs Protein Cervic Dilation Cervic Effacement Cervic Station Type Weight in lbs Pre/Post Dialysis Refused Weight 179.471349092121 BP Diastolic BP Location Tested BP Systolic [...] Type Weight in lbs Pre/Post Dialysis Refused 183.917015263553 BP Diastolic BP Location Tested BP Systolic [...] Weight in lbs Pre/Post Dialysis Refused Weight 185.732008640916 BP Diastolic BP Location Tested BP Systolic [...] Weight in lbs Pre/Post Dialysis Refused Weight 186.411107888526 BP Diastolic BP Location Tested BP Systolic [...] Weight in lbs Pre/Post Dialysis Refused Weight 168.606127899396 BP Diastolic BP Location Tested BP Systolic [...]
[2025-04-01] MEDS: LACTATED RINGERS 1,000 ML 30 ML IV CONT ×2 (07:10→10:13)
[2025-04-01] MEDS: ACETAMINOPHEN 500 MG TABLET 1000 MG PO (07:10)
[2025-04-01] MEDS: KETOROLAC 15 MG/ML VIAL (*BKC) IV PUSH (07:10)
[2025-04-01 07:52] LABS: BEDSIDEPREGUCG Negative (Negative)
--- NOTE | 2025-04-01 08:25 | P.PNAN_ITS ---
Anes - Initial Pre Proc Eval Procedure: Operation Date: 04/01/25 08:30 Proposed Procedures p Laparoscopic Cholecystectomy - Jonnathan Mae MD Date/Time: 04/01/25 08:25 Surgeon: Jonnathan Mae MD Pre Op Diagnosis: Chr Cholecystitis with stones Patient Data Age: 19 Gender: F Height: 1.56 m Weight: 73.6 kg Last Vital Signs Temp 36.9 C 04/01/25 07:10 Pulse 58 L 04/01/25 07:10 Resp 16 04/01/25 07:10 BP 130/73 04/01/25 07:10 Pulse Ox 99 04/01/25 07:10 O2 Del Method Room Air 04/01/25 07:10 Allergies Allergy/AdvReac Type Severity Reaction Status Date / Time No Known Allergies Allergy Verified 04/01/25 07:50 Home Medications ?Medication ?Instructions ?Recorded ?Confirmed ?Type No Home Medications 03/27/25 03/27/25 H istory Laboratory Tests 04/01/25 07:10 POC Urine HCG, Qual Negative (Negative) Patient hx anesthesia problems: none Family hx anesthesia problems: none Results Review: All pre-operative results and documents have been reviewed as part of the pre- operative evaluation. [facility] Past Medical History Medical History Chronic calculous cholecystitis Surgical History Surgical History History of 2024 Family History Family History Grandparent Diabetes mellitus Congestive heart failure Social History Social History Smoking status: Never smoker Smokeless tobacco user: other Second hand tobacco smoke exposure: No Alcohol intake: current Alcohol use details: RARE USE Substance use: current Substance use type: marijuana Other substance usage details: 1-2X DAILY Lack of Transportation: No Lack of Food: Never True Current Housing: I Have Housing Concerned About Future Housing: No Difficulty Paying Gas/Electric Bills: No Difficulty Paying for Meds: No Currently Unemployed: No Education: Trade/Vocational Certificate Difficulty w/ Childcare or Family Care: No Living arrangements: with family Spiritual care concerns: No Anes - Eval Final PreProcedure Day of Procedure 04/01/25 08:25 Patient weight: obese Heart: regular rate and rhythm Lungs: clear to auscultation Airway: Mallampati scale class II Neurological: alert and oriented Last oral intake: >/= 8 hours ASA classification: II Emergent: no Anesthetic plan: proceed Anesthesia type and monitoring: general ETT and standard monitoring Results Review: All pre-operative results and documents have been reviewed as part of the pre- operative evaluation. Informed Consent: The patient's anesthetic plan and its attendant risks and benefits were discussed with the patient/family/POA. Questions were solicited and answers provided to the satisfaction of the patient/family/POA.
--- NOTE | 2025-04-01 08:39 | WPDHPUPDATE1 ---
History and Physical Update Update Date/Time: 04/01/25 08:39 History and Physical has been reviewed, including an updated exam of the patient. There are NO changes in the patient's condition. Risks, benefits, and alternatives have been discussed and questions answered. Patient agrees to proceed with procedure.
[2025-04-01] MEDS: ceFAZolin 2 GM in SODIUM CHLORIDE 0.9% IV 50 ML 100 ML IVPB (08:47)
[2025-04-01] MEDS: BUPIVACAINE/EPINEPHRINE 0.5% 50 ML VIAL 30 ML INFILTRATE (09:16)
--- NOTE | 2025-04-01 09:30 | S_PTH ---
PATIENT: Agueda Doty LOC: [facility] U#:[id number] AGE/SX: 19/F ROOM: RE04/01/[address]: Jonnathan Mae MD : 2005 BED: DIS: 04/01/2025 SPEC #: [id number] RECD: 04/01/25 11:23 STATUS: SOFIA REQ #: [id number] PJ: 04/01/25 09:[address]: Jonnathan Mae DEPT: [facility] Surgical RECD BY: Arabella Gillette MLT, ([facility]) ENTERED: 04/01/25 11:23 SP TYPE: Surgical OTHR DR: Guille Sherman MD Tissues: A - Gallbladder Procedures: Hematoxylin and Eosin Stain Gross and Microscopic Level 3
--- NOTE | 2025-04-01 09:52 | P.OP_ITS ---
Procedure Note - Detailed Date of Procedure 04/01/25 Pre-op Diagnosis Chronic cholecystitis, cholelithiasis Post-op Diagnosis Same Procedure Performed Laparoscopic cholecystectomy Surgeon Jonnathan Mae MD Load Out Worker Corinne Skaggs [facility] Anesthesia General and Local Indications Patient is a 19-year-old woman who is about 3 months . During her she started noticing right upper quadrant abdominal pain and was noted to have gallbladder sludge and stones. After delivery, she has continued to have postprandial right upper quadrant pain, particularly after fatty meals. She is taken to surgery now for laparoscopic cholecystectomy. Findings Chronic inflammation, no biliary ductal dilatation, no large stones appreciated, normal liver Description of Procedure Patient was taken to surgery and induced into general anesthesia. The abdomen is prepped and draped. Trocars were placed in usual fashion using [employer] optical trocars and a 5 mm camera. Patient was placed in reverse Trendelenburg. The gallbladder was found easily. It was decompressed with a laparoscopic aspirator. The cholecystotomy was closed with a Vicryl endoloop. Placing traction on the fundus and infundibulum of the gallbladder, the cholecystohepatic triangle was exposed. Careful dissection there delineated the cystic duct and cystic artery. We also dissected the gallbladder off the liver at its lower 3rd. Critical view was achieved. I then securely clipped and divided the cystic duct and cystic artery. The gallbladder was then further freed from its remaining attachments to the liver. Cautery was used for hemostasis. The gallbladder was extricated after being placed in Endo-Catch bag. It was brought out through the 10 11 epigastric trocar site. I then replaced the epigastric trocar. We reviewed the right upper quadrant as well as the cystic duct and cystic artery stumps. All looked good. There was no evidence of bleeding or bile leakage. We then evacuated CO2 and removed the trocar sleeves. Skin wounds were closed with subcuticular 4-0 Monocryl skin suture. Wounds were dressed with Exofin surgical adhesive. Patient was awakened and taken to recovery in good condition. Sponge needle counts were correct x2. Estimated Blood Loss -5 Drains No Packing No Pathology Yes (Gallbladder) Complications None Condition Stable Disposition PACU [facility] Billing Surgery - Charge Forward: Surgery Billing (Laparoscopic cholecystectomy)
[2025-04-01] MEDS: SUGAMMADEX SODIUM 200 MG/2 ML VIAL IV PUSH (09:53)
[2025-04-01] MEDS: fentaNYL CITRATE INJ (*CRX) 100 MCG/2 ML VIAL 25 MCG IV PUSH ×3 (10:09→10:21)
[2025-04-01] MEDS: oxyCODONE HCL (*CRX) 5 MG TAB IR PO (11:08)
== END 2025-04-01 12:05 | disposition home or self-care (01) ==
PROVIDERS: PCP Obstetrics & Gynecology; Visit Provider Surgery
PROC: 0FT44ZZ Resection of Gallbladder, Percutaneous Endoscopic Approach (ICD-10-PCS; CPT 47562; principal; 2025-04-01 08:30)
DX: K80.10 Calculus of gallbladder with chronic cholecystitis without obstruction (principal); F12.90 Cannabis use, unspecified, uncomplicated; E66.9 Obesity, unspecified; Z68.30 Body mass index [BMI] 30.0-30.9, adult
CPT/HCPCS: 47562; 88304; J0690; A9270; J1885; J2250; J2270; J3010; J7120